=== PATIENT | female | born 1930 | race Two or more races ===

== ENCOUNTER 2017-08-13 02:52 | Inpatient (IN) | payer MEDICARE, OTHER ==
[~2017-08-13] VITALS: Ht 152.4 cm; Wt 64.4 kg
[2017-08-13] VITALS (34 sets, daily range): BP systolic 114–155; BP diastolic 43–96
--- NOTE | 2017-08-13 03:00 | NUR ---
pt has 18g midline RUE
--- NOTE | 2017-08-13 03:00 | NUR ---
PT BIB RA 90 WITH A C/O FEVER. PT IS TRACH VENTED WITH THE FOLLOWING SETTINGS: AC 12, TV 325, QBM901%, PEEP 5. PT IS NON RESPONSIVE TO PAINFUL STIMULI, PT'S BASELINE PER EMS. PT IS ON THE MONITOR AND CONTINUOUS PULSE OX. PT'S DAUGHTER IS IN THE LOBBY. PT HAS RUE PICC LINE, CONTEH TO GRAVITY, GTUBE, WOUND ON COCCYX AND RT HIP FX THAT HAS NOT BEEN CORRECTED. PT HAS LLE DEFORMITY FROM CHILDHOOD.
[2017-08-13] MEDS ORDERED: ACETAMINOPHEN 650 MG/SUPP.RECT RC ONE ×2 (03:27→03:30)
[2017-08-13] MEDS ORDERED: IV NS 0.9% 1,000 ML BAG IV ONE (03:30)
[2017-08-13 03:39] LABS: APPEARANCE,URINE CLOUDY (CLEAR); BILIRUBIN,URINE NEGATIVE (NEGATIVE); BLOOD, URINE 3+ Ery/uL (NEGATIVE); COLOR,URINE YELLOW (YELLOW); KETONES,URINE NEGATIVE (NEGATIVE); LEUKOCYTE ESTERASE ,URINE 3+ (NEGATIVE); NITRITE, URINE POSITIVE (NEGATIVE); PH,URINE 5.5 (5.0-8.0); PROTEIN,URINE 1+ mg/dl (NEGATIVE); UGLUCOSE NEGATIVE (NEGATIVE); UROBILINOGEN,URINE 0.2 EU/dL (0.2)
[2017-08-13 03:42] LABS: BASOPHILS # (AUTO) 0.1 /CMM (0.0-0.2); BASOPHILS % (AUTO) 0.4 % (0.0-2.0); EOSINOPHILS # (AUTO) 0.4 /CMM (0.0-0.7); EOSINOPHILS % (AUTO) 2.7 % (0.0-6.0); HEMATOCRIT 21 % (33-45); LYMPHOCYTES # (AUTO) 2.4 /CMM (0.8-4.8); LYMPHOCYTES % (AUTO) 17.4 % (20.0-44.0); MEAN CORPUSCULAR HEMOGLOBIN 31 PG (26.0-33.0); MEAN CORPUSCULAR HGB CONC 33 g/dl (31.0-36.0); MEAN CORPUSCULAR VOLUME 95 fL (82-100); MONOCYTES # (AUTO) 0.9 /CMM (0.1-1.30); MONOCYTES % (AUTO) 6.8 % (2.0-12.0); NEUTROPHILS % (AUTO) 72.7 % (43.0-81.0); PLATELET COUNT (AUTO) 394 /CMM (150-450); RDW COEFFICIENT OF VARIATION 24.7 (11.5-15.0); RED BLOOD CELL COUNT(AUTO) 2.16 MIL/uL (4.0-5.2); WHITE BLOOD COUNT (AUTO) 13.8 K/uL (4.3-11.0)
[2017-08-13 03:47] LABS: HEMOGLOBIN 6.7 g/dL (11.5-14.8)
[2017-08-13 03:49] LABS: BACTERIA,URINE Few /HPF (None Seen); WBC,URINE TOO NUMEROUS TO COUN /HPF (0-3)
[2017-08-13 03:50] LABS: SQUAMOUS EPITHELIAL CELL,UR Few /HPF (None Seen)
[2017-08-13 03:54] LABS: CALCIUM, SERUM 7.2 mg/dL (8.5-10.1); CARBON DIOXIDE 24 mmol/L (21-32); CHLORIDE 118 mmol/L (98-107); CREATININE 0.9 mg/dL (0.6-1.3); GLUCOSE 107 mg/dL (74-106); INR 1.22 (0.87-1.13); POTASSIUM 4.6 mmol/L (3.5-5.1); PROTHROMBIN TIME 12.7 SECS (9.5-12.7); SODIUM SERUM 147 mmol/L (136-145); UREA NITROGEN, BLOOD 43 mg/dL (7-18)
[2017-08-13 04:00] LABS: TROPONIN I 0.032 ng/mL (0.00-0.056)
[2017-08-13] MEDS ORDERED: CEFTRIAXONE 1GM BAG (ER ONLY) 1 GM/50 ML PIGGYBACK IV ONE (04:00)
[2017-08-13] MEDS ORDERED: IOHEXOL-350 100 ML VIAL IV ONE (04:06)
[2017-08-13] MEDS ORDERED: IV NS 0.9% 250 ML IV ONE (04:06)
[2017-08-13 04:10] LABS: ALANINE AMINOTRANSFERASE 27 U/L (12-78); ALKALINE PHOSPHATASE 265 U/L (46-116); ASPARTATE AMINOTRANSFERASE 54 U/L (15-37); B-TYPE NATRIURETIC PEPTIDE 6226 PG/ML (0-125); BILIRUBIN,DIRECT 0.2 mg/dL (0.0-0.2); BILIRUBIN,TOTAL 0.5 mg/dL (0.2-1.0); TOTAL PROTEIN, SERUM 5.6 g/dL (6.4-8.2)
[2017-08-13 04:11] LABS: ALBUMIN 1.2 g/dL (3.4-5.0)
[2017-08-13] MEDS ORDERED: CEFTRIAXONE 1GM BAG (ER ONLY) 50 ML IV ONE (04:12)
[2017-08-13 04:14] LABS: BAND % (MANUAL) 4 % (0.0-5.0); EOSINOPHILS % (MANUAL) 3 % (0-4); LYMPHOCYTES % (MANUAL) 20 % (16-48); MONOCYTES % (MANUAL) 9 % (0-11.0); NEUTROPHILS % (MANUAL) 64 (42-76)
--- NOTE | 2017-08-13 04:20 | NUR ---
US IS AT THE BEDSIDE.
--- NOTE | 2017-08-13 04:30 | NUR ---
Bernard beckman in [facility] - 08/13/17 at 0504 by TABITHA US FINISHED
--- NOTE | 2017-08-13 04:50 | NUR ---
US FINISHED AT THE BEDSIDE.
--- NOTE | 2017-08-13 05:02 | NUR ---
PT APPEARS TO BE RESTING COMRORTABLY. PT'S DAUGHTER IS AT THE BEDSIDE. PT IS AWAITING CT.
--- NOTE | 2017-08-13 05:15 | NUR ---
pt left for CT via gurney with RT, automotive technician instructor and myself.
--- NOTE | 2017-08-13 05:17 | NUR ---
ICU BED 257
--- NOTE | 2017-08-13 05:25 | NUR ---
PT RETURNED FROM CTA.
--- NOTE | 2017-08-13 05:45 | NUR ---
REPORT GIVEN TO LAMIN MARION -ICU.
[2017-08-13] MEDS ORDERED: NYST5ORA TP (05:53)
[2017-08-13] MEDS ORDERED: DOXY100C41 GT (05:53)
[2017-08-13] MEDS ORDERED: ZINC25CA GT (05:53)
[2017-08-13] MEDS ORDERED: MULT1TAB73 GT (05:53)
[2017-08-13] MEDS ORDERED: ONDA4TAB5 GT (05:53)
[2017-08-13] MEDS ORDERED: ALBU2.5V13 IH ×2 (05:53)
[2017-08-13] MEDS ORDERED: IPRA0.2S49 IH ×2 (05:53)
[2017-08-13] MEDS ORDERED: FERR324T11 GT (05:53)
[2017-08-13] MEDS ORDERED: ERGO500040 GT (05:53)
[2017-08-13] MEDS ORDERED: FAMO20TA80 GT (05:53)
[2017-08-13] MEDS ORDERED: LACT1CAP57 GT (05:53)
[2017-08-13] MEDS ORDERED: PROT946L GT (05:53)
[2017-08-13] MEDS ORDERED: BALS60OI TP (05:53)
[2017-08-13] MEDS ORDERED: ACET325T53 GT (05:53)
[2017-08-13] MEDS ORDERED: DOCU100C36 GT (05:53)
[2017-08-13] MEDS ORDERED: ASCORBIC ACID GT (05:53)
--- NOTE | 2017-08-13 06:20 | NUR ---
CALLED RADIOLOGY RE: CTA READ.
[2017-08-13] MEDS ORDERED: MAG HYDROX/AL HYDROX/SIMETH 30 ML UDC GT PRN (06:30)
[2017-08-13] MEDS ORDERED: ONDANSETRON HCL/PF 4 MG/2 ML VIAL IVP PRN ×2 (06:30→07:00)
[2017-08-13] MEDS ORDERED: Z GUARD REMEDY 2 OZ OINT TP PRN ×2 (06:30→07:00)
[2017-08-13] MEDS ORDERED: ZOLPIDEM TARTRATE 5 MG TABLET GT PRN (06:30)
[2017-08-13] MEDS ORDERED: MAGNESIUM HYDROXIDE 30 ML UDC PO PRN (06:30)
[2017-08-13] MEDS ORDERED: ACETAMINOPHEN 325 MG TABLET PO PRN (07:00)
--- NOTE | 2017-08-13 07:07 | NUR ---
CTA RESULTED AND IS NEGATIVE. PT GOING TO ICU. RT CALLED.
--- NOTE | 2017-08-13 07:20 | NUR ---
LOGISTIC MANAGER- INITIAL ADMISSION NOTED RECEIVED PT FROM ER VIA GURNEY. PT OBTUNDED, NON-VERBAL. ON MECHANICAL VENT, RESPIRATIONS EVEN AND UNLABORED, NO SOB OR DISTRESS PRESENT. BEDSIDE MONITOR REVEALS SINUS TACHYCARDIA. CONTEH CATHETER DRAINING TO GRAVITY CLOUDY, YELLOW URINE. CONTEH CATHETER REMOVED AND NEW CATHETER INSERTED. MACARIO MIDLINE FLUSHED, PATENT AND INTACT. G-TUBE PRESENT AND NOTED TO BE LEAKING AROUND STOMA SITE. G-TUBE KEPT CLAMPED AT THIS TIME. SAFETY MEASURES TAKEN: BED LOCKED AND IN LOW POSITION, SIDE RAILS UP X2 AND BED ALARM ON, WILL CONTINUE TO MONITOR.
[2017-08-13] MEDS: IV NS 0.9% 1,000 ML IV PRN (08:14)
[2017-08-13] MEDS ORDERED: ACETAMINOPHEN 650 MG/20.3 ML UDC GT PRN (08:30)
--- NOTE | 2017-08-13 08:47 | NUR ---
RT PATIENT REC'D TRACHED ON [facility] VENT DAVID WELL. VENT ALARMS CHECKED + AUDIBLE. SX'D WITH MOD AMT OF PALE YELLOW SEMITHICK SECRETIONS. B/S BAR. BERT BAG AT HOB Addendum: 08/13/17 at 1248 by CAMERON JOHNSTON RT Amended: Links added.
[2017-08-13] MEDS: FAMOTIDINE (20 MG) 20 MG TABLET GT SCH ×2 (09:00→17:18)
[2017-08-13] MEDS: LACTOBACILLUS RHAMNOSUS GG 1 EACH CAP.SPRINK GT SCH ×2 (09:00→17:18)
--- NOTE | 2017-08-13 09:00 | NUR ---
SERVICE LINE COORDINATOR- MEDICATIONS NON-ADMINISTERED DUE TO LEAKING OF G-TUBE STOMA SITE. WILL INFORM Beny ORTIZ DNP WHEN MEDICAL FRONT DESK COORDINATOR SEEING PT. WILL CONTINUE TO MONITOR.
[2017-08-13] MEDS: FERROUS SULFATE (325 MG) 325 MG/TAB TABLET GT SCH (09:56)
[2017-08-13] MEDS: MULTIVITAMINS,THERAGRAN 1 UDTAB TABLET GT SCH (09:57)
[2017-08-13] MEDS ORDERED: HYDROGEL DRESSING 90 GM TUBE TP PRN (10:00)
[2017-08-13] MEDS: ASCORBIC ACID 500 MG TABLET GT SCH ×2 (10:01→17:18)
--- NOTE | 2017-08-13 10:01 | NUR ---
WOUND CARE CONSULT: PT PRESENTS WITH MULTIPLE WOUNDS INCLUDING RT BUTTOCK STAGE 4 ULCER, LEFT BUTTOCK AND SACRAL STAGE 3 ULCERS AND G TUBE SITE REDNESS, ALL PRESENT ON ADMISSION. PT IS TRACH-VENT DEPENDENT AND IMMOBILE. FIRST STEP MATTRESS IN USE. ALL SKIN PROTECTION AND WOUND RECOMMENDATIONS DISCUSSED WITH NURSING STAFF. RECOMMEND SURGICAL CONSULT. WILL SEE PRN. PERDUE IN AGREEMENT WITH PLAN OF CARE.
[2017-08-13] MEDS: ZINC SULFATE 220 MG CAPSULE GT SCH (10:02)
[2017-08-13] MEDS: ERGOCALCIFEROL (VITAMIN D 2) 50,000 UNIT CAPSULE GT SCH (10:46)
[2017-08-13] MEDS ORDERED: IPRATROPIUM NEB FS 0.5 MG/2.5 ML AMPUL.NEB IH SCH (12:00)
[2017-08-13] MEDS: HYDROGEL DRESSING 90 GM TUBE TP SCH (12:09)
[2017-08-13] MEDS: PROSOURCE / PROSTAT (PYXIS) 30 ML UDC GT SCH ×2 (13:00→17:18)
--- NOTE | 2017-08-13 13:20 | NUR ---
BIODIESEL DIVISION MANAGER- Comfort STAPLES AGENT TICKETING GATE AT BEDSIDE. UPDATED HER ON PT'S G-TUBE: LEAKING, RED & SWOLLEN. PER AGENT TICKETING GATE, OBTAIN CONSENT FOR EGD AND POSSIBLE PEG TUBE REPLACEMENT. 1330- OBTAINED TELEPHONE CONSENT FROM PT'S DAUGHTER, MOHAN FOR EGD AND POSSIBLE PEG TUBE REPLACEMENT. VERIFIED WITH NIRALI KIMBLE. 1430- 1ST UNIT OF BLOOD COMPLETED. DR. YOUNG AND OR STAFF AT BEDSIDE FOR EGD. WILL START 2ND UNIT OF BLOOD ONCE EGD COMPLETED.
[2017-08-13] MEDS: IPRATROPIUM NEB FS 0.5 MG/2.5 ML AMPUL.NEB IH SCH ×2 (13:29→19:30)
[2017-08-13] MEDS: ALBUTEROL FS 2.5 MG/0.5 ML VIAL.NEB NEB SCH ×2 (13:29→19:30)
--- NOTE | 2017-08-13 14:15 | NUR ---
CIGAR BINDERKENTON ORTIZ DNP AT BEDSIDE INSERTING NEW MIDLINE. WILL CONTINUE TO MONITOR.
[2017-08-13] MEDS ORDERED: NEOMY SULF/BACITRAC ZN/POLY 15 GM TUBE TP PRN (16:00)
--- NOTE | 2017-08-13 16:30 | NUR ---
TRACK SURFACING MACHINE OPERATOR- STOOL SAMPLE OBTAINED FOR STOOL OB AND PLACED IN FRIDGE FOR LAB CHIROPRACTOR SOLE PRACTITIONER. WILL CONTINUE TO MONITOR.
[2017-08-13] MEDS: MEROPENEM 500 MG in IV NS 0.9% 50 ML IV SCH (18:43)
--- NOTE | 2017-08-13 20:18 | NUR ---
PT RECEIVED TRACHED SHLY 6 ON VENT. NO RESP DISTRESS. PT TOLERATING VENT SETTINGS. SX'D FOR MOD AMT OF TINGED SECRETIONS. VENT ALARMS SET AND AUDIBLE. AMBU BAG AT BEDSIDE. VENT PLUGGED INTO RED OUTLET. WILL CONTINUE TO MONITOR. Addendum: 08/13/17 at 2020 by CRISTOBAL VALLADARES RT Amended: Links added.
--- NOTE | 2017-08-13 20:32 | NUR ---
RN NOTE RECEIVED REPORT FROM LISA ORDER TAKER FOR CONTINUITY OF CARE
[2017-08-13 21:14] LABS: HEMOGLOBIN 11.2 g/dL (11.5-14.8)
[2017-08-14] VITALS: BP 146/86
[2017-08-14] MEDS: ALBUTEROL FS 2.5 MG/0.5 ML VIAL.NEB NEB SCH ×4 (01:30→20:09)
[2017-08-14] MEDS: IPRATROPIUM NEB FS 0.5 MG/2.5 ML AMPUL.NEB IH SCH ×4 (01:30→20:09)
[2017-08-14 04:00] VITALS: BP 151/86
[2017-08-14] MEDS ORDERED: CEFTRIAXONE 1 G in IV D5W 50 ML IV SCH (05:00)
[2017-08-14] MEDS: MEROPENEM 500 MG in IV NS 0.9% 50 ML IV SCH ×2 (05:22→17:31)
--- NOTE | 2017-08-14 07:04 | NUR ---
RN NOTE PT REMAINS IN NO ACUTE DISTRESS IN BED. PT DID NOT HAVE ANY SIGNIFICANT CHANGE IN CONDITION DURING SHIFT. ALL NEEDS MET, ALL ORDERS CARRIED OUT. WILL ENDORSE CARE TO AM RN FOR CONTINUITY OF CARE.
[2017-08-14 07:10] LABS: BASOPHILS # (AUTO) 0.1 /CMM (0.0-0.2); BASOPHILS % (AUTO) 0.7 % (0.0-2.0); EOSINOPHILS # (AUTO) 0.3 /CMM (0.0-0.7); EOSINOPHILS % (AUTO) 2.1 % (0.0-6.0); HEMATOCRIT 34 % (33-45); HEMOGLOBIN 11.7 g/dL (11.5-14.8); LYMPHOCYTES # (AUTO) 1.6 /CMM (0.8-4.8); LYMPHOCYTES % (AUTO) 11.9 % (20.0-44.0); MEAN CORPUSCULAR HEMOGLOBIN 31 PG (26.0-33.0); MEAN CORPUSCULAR HGB CONC 34 g/dl (31.0-36.0); MEAN CORPUSCULAR VOLUME 90 fL (82-100); MONOCYTES # (AUTO) 0.8 /CMM (0.1-1.30); MONOCYTES % (AUTO) 5.6 % (2.0-12.0); NEUTROPHILS # (AUTO) 10.9 /CMM (1.8-8.9); NEUTROPHILS % (AUTO) 79.7 % (43.0-81.0); PLATELET COUNT (AUTO) 391 /CMM (150-450); RDW COEFFICIENT OF VARIATION 21.6 (11.5-15.0); RED BLOOD CELL COUNT(AUTO) 3.79 MIL/uL (4.0-5.2); WHITE BLOOD COUNT (AUTO) 13.6 K/uL (4.3-11.0)
[2017-08-14 07:25] LABS: CHOLESTEROL 112 mg/dL (<200); HDL CHOLESTEROL 10 mg/dL (40-60); LDL 69 mg/dL (0-99); TRIGLYCERIDES 111 mg/dL (30-150)
[2017-08-14 07:27] LABS: CARBON DIOXIDE 19 mmol/L (21-32); CHLORIDE 118 mmol/L (98-107); CREATININE 0.8 mg/dL (0.6-1.3); GLUCOSE 79 mg/dL (74-106); MAGNESIUM 1.5 mg/dL (1.8-2.4); PHOSPHORUS 3.3 mg/dL (2.5-4.9); POTASSIUM 4.2 mmol/L (3.5-5.1); SODIUM SERUM 147 mmol/L (136-145); UREA NITROGEN, BLOOD 39 mg/dL (7-18)
[2017-08-14 08:00] VITALS: BP_SYST 152; BP_SYST 153; BP_DIAS 51; BP_DIAS 92
[2017-08-14] MEDS: ZINC SULFATE 220 MG CAPSULE GT SCH (09:34)
[2017-08-14] MEDS: LACTOBACILLUS RHAMNOSUS GG 1 EACH CAP.SPRINK GT SCH ×2 (09:34→17:35)
[2017-08-14] MEDS: PROSOURCE / PROSTAT (PYXIS) 30 ML UDC GT SCH ×3 (09:34→17:35)
[2017-08-14] MEDS: HYDROCODONE/APAP 5/325MG 1 EACH TABLET GT PRN (09:35)
[2017-08-14] MEDS: FERROUS SULFATE (325 MG) 325 MG/TAB TABLET GT SCH (09:35)
[2017-08-14] MEDS: ASCORBIC ACID 500 MG TABLET GT SCH ×2 (09:35→17:35)
[2017-08-14] MEDS: HYDROGEL DRESSING 90 GM TUBE TP SCH (09:36)
[2017-08-14] MEDS: FAMOTIDINE (20 MG) 20 MG TABLET GT SCH ×2 (09:36→17:35)
[2017-08-14] MEDS: MULTIVITAMINS,THERAGRAN 1 UDTAB TABLET GT SCH (09:36)
[2017-08-14] MEDS: Magnesium 1GM/D5W 100ML PREMIX 100 ML IV SCH ×2 (11:27→13:45)
[2017-08-14 12:00] VITALS: BP 142/82
[2017-08-14 16:00] VITALS: BP 135/91
[2017-08-14] MEDS: IV NS 0.9% 1,000 ML IV PRN (17:37)
[2017-08-14] MEDS: NUTREN PULMONARY 1,000 ML BAG GT PRN (18:17)
--- NOTE | 2017-08-14 18:30 | NUR ---
RN NOTE TUBE FEEDING STARTED TODAY VIA NGT TUBE PER DIETITIAN RECOMMENDATION. WILL ENDORSE TO QA AUTOMATION DEVELOPER NURSE.
--- NOTE | 2017-08-14 19:30 | NUR ---
TELEVISION ANTENNA INSTALLER INITIAL NOTES RECEIVED PATIENT ASLEEP, OBTUNDED, RESPONSIVE TO TOUCH. NO S/S OF PAIN OR DISCOMFORT. VENT DEPENDENT, WITH VENT SETTINGS AC 12, TV 450, FIO2 35%, PEEP 5, SPO2 100%. NO RESPIRATORY DISTRESS NOTED. ON TELE MONITOR SR. WITH LEFT NARE NGT, PATENT, INTACT, IN PLACE. GTF AT 20ML/HR, NOTED WITH 20ML RESIDUAL, WILL TITRATE TO GOAL RATE OF 40ML/HR TOLERATED. NOTED WITH GENERALIZED EDEMA. IVF RUNNING. HOB KEPT ELEVATED. SIDE RAILS UP AND LOCKED. BED KEPT AT LOWEST POSITION. WILL CONTINUE TO MONITOR.
[2017-08-14 20:00] VITALS: BP 137/89
--- NOTE | 2017-08-14 20:10 | NUR ---
Received pt on vent support AC 12,450,35,+5, pt stable on current settings no distress noted at this time, WILL CONTINUE MONITORING PT PER MDS ORDERS. Addendum: 08/14/17 at 2011 by ARIELA CHAVEZ RT Amended: Links added.
[2017-08-15] VITALS: BP 137/89
[2017-08-15] MEDS: ALBUTEROL FS 2.5 MG/0.5 ML VIAL.NEB NEB SCH ×4 (01:42→20:10)
[2017-08-15] MEDS: IPRATROPIUM NEB FS 0.5 MG/2.5 ML AMPUL.NEB IH SCH ×4 (01:42→20:10)
[2017-08-15 04:00] VITALS: BP 140/76
[2017-08-15] MEDS: IV NS 0.9% 1,000 ML IV PRN ×2 (05:21→23:48)
[2017-08-15] MEDS: MEROPENEM 500 MG in IV NS 0.9% 50 ML IV SCH ×2 (05:21→17:21)
--- NOTE | 2017-08-15 06:00 | NUR ---
TUFTING CREELER CLOSING NOTES NO SIGNIFICANT CHANGES OVERNIGHT. TOLERATING GTF AT 40ML/HR. NO RESPIRATORY DISTRESS NOTED. TOLERATING CURRENT VENT SETTINGS, SPO2 100%. SKIN COOL AND DRY TO TOUCH. PATIENT WITH NS AT 100ML/HR, RECEIVED NEW ORDER TO DECREASED TO 50ML/HR. SR ON TELE MONITOR. F/C IN PLACE, DRAINING BY GRAVITY. KEPT CLEAN AND DRY. WOUND TX ORDERED. TURNED AND REPOSITIONED Q2 AND PRN. SIDE RAILS UP AND LOCKED. BED KEPT AT LOWEST POSITION. WILL ENDORSE CONTINUITY OF CARE TO AM NURSE.
[2017-08-15 08:00] VITALS: BP 116/76
[2017-08-15] MEDS: MULTIVITAMINS,THERAGRAN 1 UDTAB TABLET GT SCH (09:09)
[2017-08-15] MEDS: ZINC SULFATE 220 MG CAPSULE GT SCH (09:09)
[2017-08-15] MEDS: FERROUS SULFATE (325 MG) 325 MG/TAB TABLET GT SCH (09:09)
[2017-08-15] MEDS: ASCORBIC ACID 500 MG TABLET GT SCH ×2 (09:09→17:21)
[2017-08-15] MEDS: PROSOURCE / PROSTAT (PYXIS) 30 ML UDC GT SCH ×3 (09:09→17:21)
[2017-08-15] MEDS: LACTOBACILLUS RHAMNOSUS GG 1 EACH CAP.SPRINK GT SCH ×2 (09:09→17:20)
[2017-08-15] MEDS: FAMOTIDINE (20 MG) 20 MG TABLET GT SCH ×2 (09:09→17:21)
[2017-08-15] MEDS: HYDROGEL DRESSING 90 GM TUBE TP SCH (09:09)
[2017-08-15 12:00] VITALS: BP 149/73
[2017-08-15 16:00] VITALS: BP 114/35
[2017-08-15 20:00] VITALS: BP_SYST 149; BP_DIAS 43; BP_DIAS 53
--- NOTE | 2017-08-15 20:00 | NUR ---
RN NOTES RECEIVED PATIENT IN BED WITH EYES CLOSED. NO DISTRESS NOTED. BREATHING EVEN AND UNLABORED. VENT SETTING WELL TOLERATED. NON VERBAL. NO PHYSICAL MANIFESTATION OF PAIN OR DISCOMFORT. FC PATENT AND INTACT DRAINING CLEAR YELLOW WITH NO DOUL ORDOR URINE. FEEDING WELL TOLERATED VIA NGT TO LEFT NARE. NO RESIDUAL NOTED. VITAL SIGNS WNL. KEPT CLEAN AND DRY. WILL CONTINUE TO MONITOR.
--- NOTE | 2017-08-15 20:10 | NUR ---
PT REC'D ON [facility] VENT ON NOTED SETTINGS CHARTED. PT IS COMFORTABLE AND NO RESPIRATORY DISTRESS NOTED. VENT PLUGGED INTO RED OUTLET, AMBU BAG BEDSIDE, ALARMS ARE SET AND AUDIBLE PER POLICY. WILL CONTINUE TO MONITOR. Addendum: 08/16/17 at 0538 by KENNEDI OLIVER RT Amended: Links added.
[2017-08-15] MEDS: CEFTAZIDIME 2 G in IV D5W 50 ML IV SCH (20:56)
[2017-08-16] VITALS (8 sets, daily range): BP systolic 123–158; BP diastolic 46–106
[2017-08-16] MEDS: ALBUTEROL FS 2.5 MG/0.5 ML VIAL.NEB NEB SCH ×4 (01:57→20:12)
[2017-08-16] MEDS: IPRATROPIUM NEB FS 0.5 MG/2.5 ML AMPUL.NEB IH SCH ×4 (01:57→20:12)
[2017-08-16] MEDS: CEFTAZIDIME 2 G in IV D5W 50 ML IV SCH ×3 (04:41→20:55)
--- NOTE | 2017-08-16 06:20 | NUR ---
RN CLOSING NOTES NO SIGNIFICANT CHANGE OF CONDITION. NO DISTRESS NOTED. BREATHING EVEN AND UNLABORED. VITAL SIGNS WNL. OBTUNDED, NON VERBAL. WILL ENDORSE TO AM SHIFT FOR CONTINUITY OF CARE.
--- NOTE | 2017-08-16 07:41 | NUR ---
ANA MARIA RN OPENING NOTES RECEIVED PATIENT IN STABLE CONDITION. IN NO APPARENT DISTRESS. PATIENT IS RESTING IN BED. BEDSIDE RAILS ARE UP X2. BED IS LOCKED AND LOWERED. WILL CONTINUE TO MONITOR.
[2017-08-16] MEDS: PROSOURCE / PROSTAT (PYXIS) 30 ML UDC GT SCH ×3 (08:03→16:04)
[2017-08-16] MEDS: ASCORBIC ACID 500 MG TABLET GT SCH ×2 (08:04→16:04)
[2017-08-16] MEDS: LACTOBACILLUS RHAMNOSUS GG 1 EACH CAP.SPRINK GT SCH ×2 (08:04→16:04)
[2017-08-16] MEDS: MULTIVITAMINS,THERAGRAN 1 UDTAB TABLET GT SCH (08:04)
[2017-08-16] MEDS: HYDROGEL DRESSING 90 GM TUBE TP SCH (08:04)
[2017-08-16] MEDS: FAMOTIDINE (20 MG) 20 MG TABLET GT SCH ×2 (08:04→16:04)
[2017-08-16] MEDS: FERROUS SULFATE (325 MG) 325 MG/TAB TABLET GT SCH (08:04)
[2017-08-16] MEDS: ZINC SULFATE 220 MG CAPSULE GT SCH (08:04)
[2017-08-16] MEDS: NUTREN PULMONARY 1,000 ML BAG GT PRN (08:17)
[2017-08-16 08:44] LABS: BASOPHILS % (AUTO) 0.3 % (0.0-2.0); EOSINOPHILS # (AUTO) 0.5 /CMM (0.0-0.7); EOSINOPHILS % (AUTO) 4.8 % (0.0-6.0); HEMATOCRIT 32 % (33-45); HEMOGLOBIN 10.9 g/dL (11.5-14.8); LYMPHOCYTES % (AUTO) 17.3 % (20.0-44.0); MEAN CORPUSCULAR HEMOGLOBIN 31 PG (26.0-33.0); MEAN CORPUSCULAR HGB CONC 34 g/dl (31.0-36.0); MEAN CORPUSCULAR VOLUME 90 fL (82-100); MONOCYTES # (AUTO) 1.1 /CMM (0.1-1.30); MONOCYTES % (AUTO) 9.9 % (2.0-12.0); NEUTROPHILS # (AUTO) 7.8 /CMM (1.8-8.9); NEUTROPHILS % (AUTO) 67.7 % (43.0-81.0); PLATELET COUNT (AUTO) 467 /CMM (150-450); RDW COEFFICIENT OF VARIATION 21.1 (11.5-15.0); RED BLOOD CELL COUNT(AUTO) 3.54 MIL/uL (4.0-5.2); WHITE BLOOD COUNT (AUTO) 11.4 K/uL (4.3-11.0)
[2017-08-16 09:08] LABS: CALCIUM, SERUM 7.3 mg/dL (8.5-10.1); CARBON DIOXIDE 18 mmol/L (21-32); CHLORIDE 119 mmol/L (98-107); CREATININE 0.8 mg/dL (0.6-1.3); GLUCOSE 93 mg/dL (74-106); MAGNESIUM 1.8 mg/dL (1.8-2.4); PHOSPHORUS 3.3 mg/dL (2.5-4.9); POTASSIUM 3.9 mmol/L (3.5-5.1); SODIUM SERUM 147 mmol/L (136-145); UREA NITROGEN, BLOOD 45 mg/dL (7-18)
--- NOTE | 2017-08-16 17:23 | NUR ---
Trach pt received, tolerating current vent settings well throughout the shift. Pt trach is secure. Vent is plugged into a red outlet, alarms are set and audible, and BVM is at bedside. Addendum: 08/16/17 at 1728 by CADEN ZUÑIGA RT Amended: Links added.
--- NOTE | 2017-08-16 18:39 | NUR ---
CENTRIFUGAL SEPARATOR CLOSING NOTES PATIENT IS RESTING IN BED IN NO APPARENT DISTRESS. BEDSIDE RAILS ARE UP X2. BED IS LOCKED AND LOWERED. CALL LIGHT IS WITHIN REACH. WILL ENDORSE CARE TO TRAFFIC LINE PAINTER NURSE FOR NICK.
[2017-08-16] MEDS: IV NS 0.9% 1,000 ML IV PRN (20:56)
[2017-08-17] VITALS (8 sets, daily range): BP systolic 102–180; BP diastolic 50–92
[2017-08-17] MEDS: ALBUTEROL FS 2.5 MG/0.5 ML VIAL.NEB NEB SCH ×4 (02:14→20:22)
[2017-08-17] MEDS: IPRATROPIUM NEB FS 0.5 MG/2.5 ML AMPUL.NEB IH SCH ×4 (02:14→20:22)
[2017-08-17] MEDS: CEFTAZIDIME 2 G in IV D5W 50 ML IV SCH ×3 (04:48→21:39)
--- NOTE | 2017-08-17 05:58 | NUR ---
RT PT RECEIVED ON [facility] VENT WITH NOTED SETTING. VENT PLUGGED IN TO RED OUTLET. ALARMS SET AND AUDIBLE. AMBU BAG AT [facility]. NO SOB OR RESP DISTRESS NOTED ON SHIFT. HHN TX GIVEN ORDERED WITH NO ADVERSE REACTIONS. Addendum: 08/17/17 at 0558 by SALENA BYRD RT Amended: Links added.
[2017-08-17 06:31] LABS: BASOPHILS # (AUTO) 0.1 /CMM (0.0-0.2); BASOPHILS % (AUTO) 0.7 % (0.0-2.0); EOSINOPHILS # (AUTO) 0.7 /CMM (0.0-0.7); EOSINOPHILS % (AUTO) 5.5 % (0.0-6.0); HEMATOCRIT 32 % (33-45); LYMPHOCYTES # (AUTO) 1.9 /CMM (0.8-4.8); LYMPHOCYTES % (AUTO) 15.9 % (20.0-44.0); MEAN CORPUSCULAR HEMOGLOBIN 31 PG (26.0-33.0); MEAN CORPUSCULAR HGB CONC 34 g/dl (31.0-36.0); MEAN CORPUSCULAR VOLUME 91 fL (82-100); MONOCYTES % (AUTO) 7.8 % (2.0-12.0); NEUTROPHILS # (AUTO) 8.5 /CMM (1.8-8.9); NEUTROPHILS % (AUTO) 70.1 % (43.0-81.0); PLATELET COUNT (AUTO) 481 /CMM (150-450); RDW COEFFICIENT OF VARIATION 21.6 (11.5-15.0); RED BLOOD CELL COUNT(AUTO) 3.55 MIL/uL (4.0-5.2); WHITE BLOOD COUNT (AUTO) 12.2 K/uL (4.3-11.0)
[2017-08-17 07:01] LABS: CALCIUM, SERUM 7.3 mg/dL (8.5-10.1); CARBON DIOXIDE 18 mmol/L (21-32); CHLORIDE 123 mmol/L (98-107); CREATININE 0.7 mg/dL (0.6-1.3); GLUCOSE 103 mg/dL (74-106); MAGNESIUM 1.8 mg/dL (1.8-2.4); PHOSPHORUS 3.6 mg/dL (2.5-4.9); POTASSIUM 4.2 mmol/L (3.5-5.1); SODIUM SERUM 152 mmol/L (136-145); UREA NITROGEN, BLOOD 50 mg/dL (7-18)
[2017-08-17] MEDS: FERROUS SULFATE (325 MG) 325 MG/TAB TABLET GT SCH (09:08)
[2017-08-17] MEDS: ZINC SULFATE 220 MG CAPSULE GT SCH (09:08)
[2017-08-17] MEDS: MULTIVITAMINS,THERAGRAN 1 UDTAB TABLET GT SCH (09:08)
[2017-08-17] MEDS: FAMOTIDINE (20 MG) 20 MG TABLET GT SCH ×2 (09:09→16:28)
[2017-08-17] MEDS: ASCORBIC ACID 500 MG TABLET GT SCH ×2 (09:09→16:28)
[2017-08-17] MEDS: HYDROGEL DRESSING 90 GM TUBE TP SCH (09:09)
[2017-08-17] MEDS: PROSOURCE / PROSTAT (PYXIS) 30 ML UDC GT SCH ×3 (09:09→16:28)
[2017-08-17] MEDS: LACTOBACILLUS RHAMNOSUS GG 1 EACH CAP.SPRINK GT SCH ×2 (09:09→16:28)
--- NOTE | 2017-08-17 12:26 | NUR ---
APPLIED COMPUTER SCIENCE PROFESSOR NOTE SPOKE WITH GUCCI JAUREGUI DNP AWARE THAT NA 152 WITH NEW ORDER IVF GIVEN
[2017-08-17] MEDS: NUTREN PULMONARY 1,000 ML BAG GT PRN (12:31)
[2017-08-17] MEDS: IV 1/2NS 1000 ML 1,000 ML IV PRN (13:39)
--- NOTE | 2017-08-17 13:41 | NUR ---
HEALTH ASSOCIATE NOTE PER GUCCI JAUREGUI OK TO GIVE IVF AT 80 ML PER HOUR, AWARE THAT BOTH HANDS WITH SEVERE EDEMA STATED OK TO CONT TO GIVE, WILL F]U
--- NOTE | 2017-08-17 15:50 | NUR ---
SENIOR SALES REPRESENTATIVE NOTE KEEP CLEAN DRY FAMILY AT BEDSIDE, NOT IN ACUTE DISTRESS, WILL CONT TO MONITOR CLOSELY
--- NOTE | 2017-08-17 17:17 | NUR ---
Pt received on mechanical vent, tolerating current vent settings well. Pt trach is secure. Vent is plugged into a red outlet, alarms are set and audible, and BVM is at bedside. Addendum: 08/17/17 at 1718 by CADEN ZUÑIGA RT Amended: Links added.
--- NOTE | 2017-08-17 17:21 | NUR ---
FOOD MOBILE DRIVER NOTE SPOKE WITH GUCCI JAUREGUI RN ELEVATOR CONSTRUCTOR SUPERVISOR NOTIFIED THAT BP 180/90 WITH ORDER HYDRALAZINE 25 NG VIA GTUBE TIME ONE ,ORDER CARRIED OUT
[2017-08-17] MEDS ORDERED: hydrALAZINE HCL 25 MG TABLET GT ONE (17:30)
--- NOTE | 2017-08-17 18:36 | NUR ---
ANIMAL NUTRITION CONSULTANT NOTE ALL NEEDS ATTENDED, NOT IN ACUTE DISTRESS
--- NOTE | 2017-08-17 20:00 | NUR ---
RN INITIAL NOTES Pt received on mechanical vent, tolerating current vent settings well. Pt trach is secure. Vent is plugged into a red outlet, alarms are set and audible, and BVM is at bedside.Will continue to monitor pt.
[2017-08-18] VITALS (7 sets, daily range): BP systolic 123–177; BP diastolic 40–82
[2017-08-18] MEDS: IPRATROPIUM NEB FS 0.5 MG/2.5 ML AMPUL.NEB IH SCH ×4 (02:17→19:06)
[2017-08-18] MEDS: ALBUTEROL FS 2.5 MG/0.5 ML VIAL.NEB NEB SCH ×4 (02:17→19:06)
[2017-08-18] MEDS: IV 1/2NS 1000 ML 1,000 ML IV PRN ×2 (04:19→19:54)
[2017-08-18] MEDS: CEFTAZIDIME 2 G in IV D5W 50 ML IV SCH ×3 (04:22→19:48)
--- NOTE | 2017-08-18 05:30 | NUR ---
RT PT RECEIVED ON [facility] VENT WITH NOTED SETTING. VENT PLUGGED IN TO RED OUTLET. ALARMS SET AND AUDIBLE. AMBU BAG AT [facility]. NO SOB OR RESP DISTRESS NOTED ON SHIFT. HHN TX GIVEN ORDERED WITH NO ADVERSE REACTIONS. Addendum: 08/18/17 at 0530 by SALENA BYRD RT Amended: Links added.
[2017-08-18 06:11] LABS: BASOPHILS # (AUTO) 0.1 /CMM (0.0-0.2); EOSINOPHILS # (AUTO) 0.6 /CMM (0.0-0.7); EOSINOPHILS % (AUTO) 4.8 % (0.0-6.0); HEMATOCRIT 32 % (33-45); HEMOGLOBIN 10.7 g/dL (11.5-14.8); LYMPHOCYTES # (AUTO) 1.6 /CMM (0.8-4.8); LYMPHOCYTES % (AUTO) 12.2 % (20.0-44.0); MEAN CORPUSCULAR HEMOGLOBIN 30 PG (26.0-33.0); MEAN CORPUSCULAR HGB CONC 34 g/dl (31.0-36.0); MEAN CORPUSCULAR VOLUME 90 fL (82-100); MONOCYTES # (AUTO) 1.1 /CMM (0.1-1.30); MONOCYTES % (AUTO) 8.1 % (2.0-12.0); NEUTROPHILS # (AUTO) 9.9 /CMM (1.8-8.9); NEUTROPHILS % (AUTO) 73.9 % (43.0-81.0); PLATELET COUNT (AUTO) 480 /CMM (150-450); RED BLOOD CELL COUNT(AUTO) 3.53 MIL/uL (4.0-5.2); WHITE BLOOD COUNT (AUTO) 13.3 K/uL (4.3-11.0)
--- NOTE | 2017-08-18 06:42 | NUR ---
RN CLOSING NOTES NO CHANGES IN PT CONDITION OVER NIGHT. Pt received on mechanical vent, tolerating current vent settings well. Pt trach is secure. Vent is plugged into a red outlet, alarms are set and audible, and BVM is at bedside.Will endorse to Am RN.
[2017-08-18 07:08] LABS: CALCIUM, SERUM 7.1 mg/dL (8.5-10.1); CARBON DIOXIDE 18 mmol/L (21-32); CHLORIDE 118 mmol/L (98-107); CREATININE 0.7 mg/dL (0.6-1.3); GLUCOSE 83 mg/dL (74-106); MAGNESIUM 1.6 mg/dL (1.8-2.4); PHOSPHORUS 3.2 mg/dL (2.5-4.9); POTASSIUM 3.6 mmol/L (3.5-5.1); SODIUM SERUM 145 mmol/L (136-145); UREA NITROGEN, BLOOD 44 mg/dL (7-18)
--- NOTE | 2017-08-18 07:30 | NUR ---
RN AM NOTES RECEIVED PATIENT IN STABLE CONDITION. OBTUNDED, ON SHILEY 6 MECHANICAL VENT DEPENDENT SETTING ORDERED. NOT IN ANY DISTRESS. IN NO APPARENT DISTRESS. TELEMETRY READS SR HR 86, NO SIGNS OF CHEST DISCOMFORT OR PAIN, LENARD MIDLINE FLUSHES WELL, SITE CLEAR, MACARIO MIDLINE WITH 1/2 NS AT 80 ML/HR RUNNING, SITE CLEAR, CONTEH CATH IS IN PLACE, DRAINING ADEQUATE AMOUNT OF URINE, YELLOW CLEAR, GENERALIZED SWELLING, CONTRACTED, BEDREST, NGT CHECKED FOR PLACEMENT WITH COLLEAGUE CRISTOBAL KIMBLE, NUTREN 40 ML/HR, 10 ML RESIDUAL, SEE NURSING FLOWSHEET FOR SKIN ISSUES. BEDSIDE RAILS ARE UP X2. BED IS LOCKED AND LOWERED. WILL TURN AND REPOSITION Q 2 HOURS. WILL CONTINUE TO MONITOR.
--- NOTE | 2017-08-18 09:30 | NUR ---
RN NOTES DUE MEDS GIVEN
[2017-08-18] MEDS: MULTIVITAMINS,THERAGRAN 1 UDTAB TABLET GT SCH (09:53)
[2017-08-18] MEDS: FERROUS SULFATE (325 MG) 325 MG/TAB TABLET GT SCH (09:53)
[2017-08-18] MEDS: LACTOBACILLUS RHAMNOSUS GG 1 EACH CAP.SPRINK GT SCH ×2 (09:53→17:15)
[2017-08-18] MEDS: ZINC SULFATE 220 MG CAPSULE GT SCH (09:53)
[2017-08-18] MEDS: FAMOTIDINE (20 MG) 20 MG TABLET GT SCH ×2 (09:53→17:15)
[2017-08-18] MEDS: ASCORBIC ACID 500 MG TABLET GT SCH ×2 (09:53→17:15)
[2017-08-18] MEDS: HYDROGEL DRESSING 90 GM TUBE TP SCH (09:54)
[2017-08-18] MEDS: PROSOURCE / PROSTAT (PYXIS) 30 ML UDC GT SCH ×3 (09:54→17:15)
--- NOTE | 2017-08-18 12:20 | NUR ---
RN NOTES FORTAZ IV STARTED.
[2017-08-18] MEDS: Magnesium 1GM/D5W 100ML PREMIX 100 ML IV SCH ×2 (12:57→14:02)
--- NOTE | 2017-08-18 12:57 | NUR ---
RN NOTES MAGNESIUM BAG #1 ADMINISTERED.
--- NOTE | 2017-08-18 14:02 | NUR ---
RN NOTES MAGNESIUM BAG # 2 STARTED. FINAL DOSE. REPORT GIVEN TO CYNDY FOR NICK.
--- NOTE | 2017-08-18 14:05 | NUR ---
RN OPENING NOTES RECEIVED PT. PT IS STABLE AND RESTING, PT IS OBTUNDED. PT IS ON TELE MONITOR, SR. PT IS TRACHED WITH SHILEY #6 AND VENT DEPENDENT, SETTINGS IN PLACE. FC IN PLACE AND PATENT. IV ACCESS LOCATED ON LENARD (SL) AND MACARIO (0.45 NS AT 80 ML/HR) BOTH MIDLINES. NGT SET TO FEED AT 40 ML/HR. SAFETY MEASURES IN PLACE, BED LOWERED TO LOWEST POSITION, HAND RAILS RAISE X3. WILL CONTINUE TO MONITOR.
--- NOTE | 2017-08-18 17:19 | NUR ---
Female trach pt received on AC mode. Pt trach is secure. Vent is plugged into a red outlet, alarms are set and audible, and BVM is at bedside. Addendum: 08/18/17 at 1726 by CADEN ZUÑIGA RT Amended: Links added.
--- NOTE | 2017-08-18 18:34 | NUR ---
RN CLOSING NOTES PT IS STABLE AND RESTING IN BED. NO S/S OF RESP DISTRESS OR SOB. PT DOES NOT APPEAR TO BE IN PAIN. VENT SETTINGS IN PLACE. PER MD ORDER, PT IS NPO, TUBE FEEDING STOPPED AT 1750. ALL PT NEEDS ANTICIPATED AND MET. SAFETY MEASURES IN PLACE, CALL LIGHT WITHIN REACH. WILL ENDORSE TO PROPERTY FIELD ADJUSTER FOR NICK.
--- NOTE | 2017-08-18 20:00 | NUR ---
RT INITIAL NOTE: [facility] WITH NOTED SETTING. SANITARY ENGINEER DONE. VENT PLUGGED INTO RED OUTLET. ALARMS SET AND AUDIBLE. AMBU BAG AT HOB. NO SOB OR RESP DISTRESS NOTED. WILL CONT TO MONITOR PT.
--- NOTE | 2017-08-18 20:12 | NUR ---
RT NOTE: PT RECEIVED ON MECH VENT WITH NOTED SETTING. SALES AND SERVICE AGENT DONE. VENT PLUGGED INTO RED OUTLET. ALARMS SET AND AUDIBLE. AMBU BAG AT HOB. NO SOB OR RESP DISTRESS NOTED ON SHIFT. PRN SX GIVEN NEEDED. Q6 HHN TX GIVEN ORDERED WITH NO ADVERSE REACTIONS. WILL CONT TO MONITOR PT.
[2017-08-19] VITALS (9 sets, daily range): BP systolic 115–150; BP diastolic 40–78
[2017-08-19] MEDS: IPRATROPIUM NEB FS 0.5 MG/2.5 ML AMPUL.NEB IH SCH ×4 (00:58→19:49)
[2017-08-19] MEDS: ALBUTEROL FS 2.5 MG/0.5 ML VIAL.NEB NEB SCH ×4 (00:58→19:49)
[2017-08-19] MEDS: CEFTAZIDIME 2 G in IV D5W 50 ML IV SCH ×3 (04:52→20:53)
--- NOTE | 2017-08-19 06:35 | NUR ---
RT CLOSING NOTE: NO CHANGE IN PT CONDITION OVERNIGHT. PT RECEIVED ON [facility] VENT WITH NOTED SETTING. EVAPORATOR SUPERVISOR DONE. VENT PLUGGED INTO RED OUTLET. ALARMS SET AND AUDIBLE. AMBU BAG AT HOB. NO SOB OR RESP DISTRESS NOTED. WILL CONT TO MONITOR PT.PT KEPT NPO SINCE MIDNIGHT. ALL MEDIATION GIVEN AND NEEDS ATTENDED.WILL ENDORSE TO AM RN.
--- NOTE | 2017-08-19 07:50 | NUR ---
RN OPENING NOTES RECEIVED PT. PT STABLE AND RESTING IN BED. PT IS OBTUNDED. NO S/S OF RESPIRATORY DISTRESS. PT IS TRACHED AND VENT DEPENDENT, SETTINGS IN PLACE. FC PATENT AND IN PLACE. IV ACCESS LOCATED ON LENARD (MIDLINE) AND MACARIO (MIDLINE). MACARIO LINE IS INFUSING 0.45 NS AT 80 ML/HR. PT IS ON NPO SINCE MIDNIGHT. POSSIBLE PEG PLACEMENT TO OCCUR TODAY D5W AT 75 ML/HR. SAFETY MEASURES IN PLACE, BED LOWERED TO LOWEST POSITION, SIDE RAILS RAISED X2. WILL CONTINUE TO MONITOR. Addendum: 08/19/17 at 1318 by CRISTELA MORENO PLEASE DISREGARD TYPING MISTAKE. NURSING NOTE SHOULD READ FOLLOWS: POSSIBLE PEG PLACEMENT TO OCCUR TODAY 08/19/17. SAFETY MEASURES IN PLACE, BED LOWERED TO LOWEST POSITION, SIDE RAILS RAISED X2. WILL CONTINUE TO MONITOR.
[2017-08-19] MEDS: ZINC SULFATE 220 MG CAPSULE GT SCH (08:31)
[2017-08-19] MEDS: HYDROGEL DRESSING 90 GM TUBE TP SCH (08:31)
[2017-08-19] MEDS: FAMOTIDINE (20 MG) 20 MG TABLET GT SCH ×2 (08:31→16:37)
[2017-08-19] MEDS: MULTIVITAMINS,THERAGRAN 1 UDTAB TABLET GT SCH (08:31)
[2017-08-19] MEDS: LACTOBACILLUS RHAMNOSUS GG 1 EACH CAP.SPRINK GT SCH ×2 (08:31→16:37)
[2017-08-19] MEDS: ASCORBIC ACID 500 MG TABLET GT SCH ×2 (08:31→16:37)
[2017-08-19] MEDS: FERROUS SULFATE (325 MG) 325 MG/TAB TABLET GT SCH (08:31)
[2017-08-19] MEDS: PROSOURCE / PROSTAT (PYXIS) 30 ML UDC GT SCH ×3 (08:31→16:38)
[2017-08-19 09:02] LABS: CALCIUM, SERUM 7.3 mg/dL (8.5-10.1); CARBON DIOXIDE 18 mmol/L (21-32); CHLORIDE 116 mmol/L (98-107); CREATININE 0.7 mg/dL (0.6-1.3); GLUCOSE 88 mg/dL (74-106); POTASSIUM 3.8 mmol/L (3.5-5.1); SODIUM SERUM 144 mmol/L (136-145); UREA NITROGEN, BLOOD 43 mg/dL (7-18)
[2017-08-19] MEDS: NUTREN PULMONARY 1,000 ML BAG GT PRN (16:55)
--- NOTE | 2017-08-19 17:41 | NUR ---
RECEIVED PT ON AC MODE ALARMS ON AND AUDIBLE, VENT PLUGGED INTO RED OUTLET, AMBUBAG AT BEDSIDE, SXD, MODERATE AMOUNT OF THICK PALE YELLOW SECRETIONS, TXS GIVEN ORDERED NO ADVERSE REACTION NOTED, PT STABLE ON CURRENT VENT SETTINGS, Addendum: 08/19/17 at 1746 by CHUCK CALLEJAS RT Amended: Links added.
--- NOTE | 2017-08-19 18:34 | NUR ---
RN CLOSING NOTES PT IN BED RESTING. NO S/S OF SOB. PT DOES NOT APPEAR TO BE IN ANY PAIN AT THIS TIME. FAMILY REQUESTS TO SPEAK WITH SURGICAL MD, DR. YOUNG, PRIOR TO SIGNING EGD WITH PEG PLACEMENT CONSENT FORM. NPO CANCELLED, PER MD ORDER TUBE FEEDING RESUMED. ALL PT NEEDS ANTICIPATED AND MET. SAFETY MEASURES IN PLACE, CALL LIGHT WITHIN REACH. WILL ENDORSE TO SHIPPING ORDER CLERK FOR NICK.
--- NOTE | 2017-08-19 20:00 | NUR ---
RN INITIAL NOTES PT IN BED RESTING. NO S/S OF SOB. PT DOES NOT APPEAR TO BE IN ANY PAIN AT THIS TIME. TUBE FEEDING, ALL SAFETY MEASURES IN PLACE, CALL LIGHT WITHIN REACH. WILL CONTINUE TO MONITOR PT.
[2017-08-19] MEDS: IV 1/2NS 1000 ML 1,000 ML IV PRN (21:01)
[2017-08-20] VITALS (8 sets, daily range): BP systolic 119–200; BP diastolic 17–92
[2017-08-20] MEDS: IPRATROPIUM NEB FS 0.5 MG/2.5 ML AMPUL.NEB IH SCH ×4 (01:58→19:50)
[2017-08-20] MEDS: ALBUTEROL FS 2.5 MG/0.5 ML VIAL.NEB NEB SCH ×4 (01:58→19:50)
[2017-08-20] MEDS: NUTREN PULMONARY 1,000 ML BAG GT PRN (04:53)
[2017-08-20] MEDS: CEFTAZIDIME 2 G in IV D5W 50 ML IV SCH ×3 (04:55→20:39)
--- NOTE | 2017-08-20 07:08 | NUR ---
RN CLOSING NOTES PT IN BED RESTING. NO S/S OF SOB. PT DOES NOT APPEAR TO BE IN ANY PAIN AT THIS TIME. TUBE FEEDING @40,IV FLUIDS @80, ALL SAFETY MEASURES IN PLACE, CALL LIGHT WITHIN REACH. WILL ENDORSE TO AM RN.
[2017-08-20] MEDS: LACTOBACILLUS RHAMNOSUS GG 1 EACH CAP.SPRINK GT SCH ×2 (09:53→17:15)
[2017-08-20] MEDS: FAMOTIDINE (20 MG) 20 MG TABLET GT SCH ×2 (09:53→17:16)
[2017-08-20] MEDS: ASCORBIC ACID 500 MG TABLET GT SCH ×2 (09:53→17:15)
[2017-08-20] MEDS: FERROUS SULFATE (325 MG) 325 MG/TAB TABLET GT SCH (09:53)
[2017-08-20] MEDS: MULTIVITAMINS,THERAGRAN 1 UDTAB TABLET GT SCH (09:53)
[2017-08-20] MEDS: ZINC SULFATE 220 MG CAPSULE GT SCH (09:53)
[2017-08-20] MEDS: PROSOURCE / PROSTAT (PYXIS) 30 ML UDC GT SCH ×3 (09:55→17:16)
[2017-08-20] MEDS: ERGOCALCIFEROL (VITAMIN D 2) 50,000 UNIT CAPSULE GT SCH (10:46)
[2017-08-20] MEDS: IV 1/2NS 1000 ML 1,000 ML IV PRN (12:37)
[2017-08-20] MEDS: HYDROGEL DRESSING 90 GM TUBE TP SCH (17:12)
--- NOTE | 2017-08-20 17:30 | NUR ---
RECEIVED PT ON ac MODE ON LTV VENT, PLUGGED INTO RED OUTLET, ABMUBAG AT BEDSIDE, TRACH PATENT AND SECURE, TXS GIVEN ORDERED NO ADVERSE REACTION NOTED PT STABLE. Addendum: 08/20/17 at 1732 by CHUCK CALLEJAS RT Amended: Links added.
--- NOTE | 2017-08-20 18:00 | NUR ---
Nurse Notes: Patient is suppose to have tomorrow EGD, with possible biopsy, cauterization,photography, and cytology. Percutaneous Endoscopic Gastrostomy Tube Insertion. Daughter Elke was called at [phone]. daughter does not want to [id number] for the GT placement, until she speaks to her family. Nurse Practicioner Rogelio Pabon was called, she needs to call back. to hold procedure of EGD and GT placement.
--- NOTE | 2017-08-20 19:05 | NUR ---
MILL CRANE OPERATOR OPENING NOTES RECEIVED REPORT FROM AM RN. PATIENT OBTUNDED. TRACH INTACT W/ VENT SETTINGS AC 12, TV 450, FIO2 35%, PEEP 5, TOLERATING WELL. ON TELE SINUS RHYTHM IN THE 90S. RIGHT UPPER ARM MIDLINE INTACT & PATENT W/ DRESSING CDI & IVF 1/2 NS @ 80 ML/HR. LEFT UPPER ARM MIDLINE INTACT & PATENT W/ DRESSING CDI, SLAINE LOCKED. NG-TUBE IN LEFT NOSTRIL INTACT W/ NGTF NUTREN @ 40 ML/HR. NO RESIDUAL NOTED @ THIS TIME. CONTEH CATH DRAINING YELLOW URINE, NO LEAKING NOTED. NO S/S OF PAIN OR DISCOMFORT @ THIS TIME. SAFETY MEASURES IN PLACE W/ SIDE RAILS UP, BED LOCKED & IN LOWEST POSITION & BED ALARM ON. WILL CONTINUE TO MONITOR.
[2017-08-21] VITALS (7 sets, daily range): BP systolic 119–177; BP diastolic 30–57
[2017-08-21] MEDS: ALBUTEROL FS 2.5 MG/0.5 ML VIAL.NEB NEB SCH ×4 (01:28→19:48)
[2017-08-21] MEDS: IPRATROPIUM NEB FS 0.5 MG/2.5 ML AMPUL.NEB IH SCH ×4 (01:28→19:48)
[2017-08-21] MEDS: HYDROCODONE/APAP 5/325MG 1 EACH TABLET GT PRN ×2 (04:16→09:19)
[2017-08-21] MEDS: CEFTAZIDIME 2 G in IV D5W 50 ML IV SCH ×2 (04:16→16:18)
--- NOTE | 2017-08-21 05:43 | NUR ---
RT pt remains on [facility] vent on ordered settings. trach secure and patent. Addendum: 08/21/17 at 0545 by MAR JIMENEZ RT Amended: Links added.
--- NOTE | 2017-08-21 07:10 | NUR ---
RN INITIAL NOTE PATIENT RECEIVED IN BED RESTING COMFORTABLY. PATIENT IS OBTUNDED, NON-VERBAL. NO S/S OF PAIN OR DISCOMFORT. SINUS RHYTHM ON TELE MONITOR. PT HAS HAILY TINSLEY #6 . NO S/S OF RESPIRATORY DISTRESS OR SOB. TOLERATING VENT SETTINGS WELL. SKIN IS WARM AND DRY TO TOUCH. IV SITE FLUSHED, AND PATENT. CONTEH CATHETER DRAINING TO GRAVITY. NGT FLUSHED, PATENT, PLACEMENT VERIFED. SAFETY PRECAUTIONS IMPLEMENTED. BED IN LOCKED, LOW POSITION WITH TWO SIDE RAILS UP. WILL CONTINUE TO MONITOR CLOSELY
[2017-08-21] MEDS: LACTOBACILLUS RHAMNOSUS GG 1 EACH CAP.SPRINK GT SCH ×2 (09:19→16:25)
[2017-08-21] MEDS: ZINC SULFATE 220 MG CAPSULE GT SCH (09:19)
[2017-08-21] MEDS: MULTIVITAMINS,THERAGRAN 1 UDTAB TABLET GT SCH (09:19)
[2017-08-21] MEDS: FERROUS SULFATE (325 MG) 325 MG/TAB TABLET GT SCH (09:19)
[2017-08-21] MEDS: ASCORBIC ACID 500 MG TABLET GT SCH ×2 (09:19→16:25)
[2017-08-21] MEDS: FAMOTIDINE (20 MG) 20 MG TABLET GT SCH ×2 (09:19→16:25)
[2017-08-21] MEDS: PROSOURCE / PROSTAT (PYXIS) 30 ML UDC GT SCH ×3 (09:20→16:25)
[2017-08-21] MEDS: HYDROGEL DRESSING 90 GM TUBE TP SCH (09:20)
--- NOTE | 2017-08-21 16:17 | NUR ---
RT RECEIVED PT ON LTV VENT, PLUGGED INTO RED OUTLET, AMBUBAG AT BEDSIDE, TRACH PATENT AND SECURED, TXS GIVEN ORDERED NO ADVERSE REACTION NOTED, PT STABLE AT THIS TIME Addendum: 08/21/17 at 1619 by CHUCK CALELJAS RT Amended: Links added.
--- NOTE | 2017-08-21 19:30 | NUR ---
BRASS MOLDER HELPER INITIAL NOTE PT RECEIVED RESTING IN BED. OBTUNDED. ON MECH VENT WITH SETTINGS WELL TOLERATED AND SATURATING WELL. TELE-SR 88. NGTUBE IN L NARE IN PLACE AND PATENT WITH FEEDING INFUSING. NO RESIDUALS NOTED. HOB ELEVATED. ON ASPIRATION PRECAUTIONS. IV MACARIO & LENARD MIDLINE IN PLACE, CLEAN, INTACT AND FLUSHING WELL. CONTEH CATHETER IN PLACE AND DRAINING BY GRAVITY. CALL LIGHT WITHIN REACH. WILL CONTINUE TO MONITOR.
[2017-08-22] VITALS: BP 133/56
[2017-08-22] MEDS: ALBUTEROL FS 2.5 MG/0.5 ML VIAL.NEB NEB SCH ×4 (00:45→20:12)
[2017-08-22] MEDS: IPRATROPIUM NEB FS 0.5 MG/2.5 ML AMPUL.NEB IH SCH ×4 (00:45→20:12)
[2017-08-22] MEDS: IV 1/2NS 1000 ML 1,000 ML IV PRN ×2 (02:59→20:35)
[2017-08-22] MEDS: NUTREN PULMONARY 1,000 ML BAG GT PRN (03:00)
[2017-08-22] MEDS: CEFTAZIDIME 2 G in IV D5W 50 ML IV SCH ×2 (03:07→16:15)
[2017-08-22 04:00] VITALS: BP 148/57
--- NOTE | 2017-08-22 04:55 | NUR ---
RT Pt trach remains on vent on ordered settings. Addendum: 08/22/17 at 0456 by MAR JIMENEZ RT Amended: Links added.
--- NOTE | 2017-08-22 07:42 | NUR ---
DECORATOR CONSULTANT CLOSING NOTE PT REMAINED STABLE DURING SHIFT. NO ACUTE DISTRESS NOTED. VENT SETTINGS WLL TOLERATED. HOB ELEVATED. ON ASPIRATION PRECAUTIONS. SUCTIONED NEEDED. REPOSITIONED Q2H. NGTUBE IN PLACE AND FEEDING WELL TOLERATED. IV IN PLACE. ALL SAFETY MEASURES IN PLACE. WILL ENDORSE TO NEXT SHIFT FOR CONTINUITY OF CARE.
[2017-08-22 08:00] VITALS: BP 123/57
[2017-08-22] MEDS: LACTOBACILLUS RHAMNOSUS GG 1 EACH CAP.SPRINK GT SCH ×2 (09:50→16:15)
[2017-08-22] MEDS: ZINC SULFATE 220 MG CAPSULE GT SCH (09:50)
[2017-08-22] MEDS: ASCORBIC ACID 500 MG TABLET GT SCH ×2 (09:50→16:15)
[2017-08-22] MEDS: PROSOURCE / PROSTAT (PYXIS) 30 ML UDC GT SCH ×3 (09:50→16:16)
[2017-08-22] MEDS: FAMOTIDINE (20 MG) 20 MG TABLET GT SCH ×2 (09:50→16:15)
[2017-08-22] MEDS: MULTIVITAMINS,THERAGRAN 1 UDTAB TABLET GT SCH (09:51)
[2017-08-22] MEDS: FERROUS SULFATE (325 MG) 325 MG/TAB TABLET GT SCH (09:51)
[2017-08-22] MEDS: HYDROGEL DRESSING 90 GM TUBE TP SCH (09:52)
[2017-08-22 12:00] VITALS: BP 148/59
--- NOTE | 2017-08-22 17:51 | NUR ---
RT RECEIVED PT ON AC MODE ON LTV VENT, PLUGGED INTO RED OUTLET, AMBUBAG AT BEDSIDE, TRACH PATENT AND SECURE NO SOB NOTED THROUGHOUT SHIFT, TXS GIVEN ORDERED NO ADVERSE REACTION NOTED PT STABLE AT THIS TIME Addendum: 08/22/17 at 1752 by CHUCK CALLEJAS RT Amended: Links added.
--- NOTE | 2017-08-22 19:30 | NUR ---
NEONATAL NURSE PRACTITIONER INITIAL NOTE PT ON MECH VENT WITH SETTINGS WELL TOLERATED AND SATURATING WELL. OBTUNDED WITH DAUGHTER AT BEDSIDE. HOB ELEVATED AND ON ASPIRATION PRECAUTIONS. NG TUBE PRESENT IN THE LEFT NARE AND SECURED IN PLACE. TUBE FEEDING INFUSING WITHOUT RESIDUALS NOTED. TELE SR 80. IV MACARIO MIDLINE AND LENARD MIDLINE CLEAN, DRY AND PATENT. CONTEH CATHETER IN PLACE AND DRAINING BY GRAVITY. INFORMED DAUGHTER OF DEBRIDEMENT PROCEDURE ORDERED BY DR. XIAO. DAUGHTER REFUSED TO SIGN AND SAID SHE WANTED MORE INFORMATION FROM DOCTOR. SAID SHE WOULD BE IN THE HOSPITAL IN THE MORNING. WILL CONTINUE TO MONITOR.
[2017-08-22 20:00] VITALS: BP 122/56
[2017-08-23] VITALS: BP_SYST 129; BP_SYST 142; BP_DIAS 41; BP_DIAS 65
[2017-08-23] MEDS: IPRATROPIUM NEB FS 0.5 MG/2.5 ML AMPUL.NEB IH SCH ×4 (01:35→19:30)
[2017-08-23] MEDS: ALBUTEROL FS 2.5 MG/0.5 ML VIAL.NEB NEB SCH ×4 (01:35→19:30)
[2017-08-23 04:00] VITALS: BP 129/45
[2017-08-23] MEDS: NUTREN PULMONARY 1,000 ML BAG GT PRN (04:55)
[2017-08-23 08:00] VITALS: BP 138/70
--- NOTE | 2017-08-23 08:00 | NUR ---
NAVY SENIOR OFFICER CLOSING PT REMAINED STABLE DURING SHIFT. NO ACUTE DISTRESS. ALL NEEDS ATTENDED TO PROMPTLY. KEPT CLEAN AND DRY. WILL ENDORSE TO NEXT SHIFT FOR CONTINUITY OF CARE.
[2017-08-23] MEDS: ZINC SULFATE 220 MG CAPSULE GT SCH (08:24)
[2017-08-23] MEDS: FERROUS SULFATE (325 MG) 325 MG/TAB TABLET GT SCH (08:24)
[2017-08-23] MEDS: LACTOBACILLUS RHAMNOSUS GG 1 EACH CAP.SPRINK GT SCH ×2 (08:24→17:31)
[2017-08-23] MEDS: FAMOTIDINE (20 MG) 20 MG TABLET GT SCH ×2 (08:24→17:31)
[2017-08-23] MEDS: ASCORBIC ACID 500 MG TABLET GT SCH ×2 (08:24→17:31)
[2017-08-23] MEDS: HYDROGEL DRESSING 90 GM TUBE TP SCH (08:25)
[2017-08-23] MEDS: MULTIVITAMINS,THERAGRAN 1 UDTAB TABLET GT SCH (08:27)
[2017-08-23] MEDS: PROSOURCE / PROSTAT (PYXIS) 30 ML UDC GT SCH ×3 (08:27→17:32)
[2017-08-23] MEDS: IV 1/2NS 1000 ML 1,000 ML IV PRN (10:24)
[2017-08-23 12:00] VITALS: BP 117/79
--- NOTE | 2017-08-23 13:17 | NUR ---
RT PATIENT RECEIVED ON MECHANICAL VENTILATION IN STABLE CONDITION. SUCTION DONE, TRACH SECURED AND PATENT. BLOODY-TINGED SECRETIONS NOTED. ALARMS ON AND AUDIBLE. Addendum: 08/23/17 at 1318 by CHIDI JERNIGAN RT Amended: Links added.
[2017-08-23 16:00] VITALS: BP 106/60
--- NOTE | 2017-08-23 17:54 | NUR ---
RN NOTE SPOKE TO DR. JUAREZ REGARDING IV FLUIDS ORDERED TO DC 1/2 NS @ 80 ML/HR.
[2017-08-23 20:00] VITALS: BP 135/47
--- NOTE | 2017-08-23 20:00 | NUR ---
RN INITIAL NOTE PATIENT RECEIVED IN BED RESTING COMFORTABLY. PATIENT IS OBTUNDED, NON-VERBAL. NO S/S OF PAIN OR DISCOMFORT. SINUS RHYTHM ON TELE MONITOR. PT HAS HAILY TINSLEY #6 . NO S/S OF RESPIRATORY DISTRESS OR SOB. TOLERATING VENT SETTINGS WELL. SKIN IS WARM AND DRY TO TOUCH. IV SITE FLUSHED, AND PATENT. CONTEH CATHETER DRAINING TO GRAVITY. NGT FLUSHED, PATENT, PLACEMENT VERIFIED. SAFETY PRECAUTIONS IMPLEMENTED. BED IN LOCKED, LOW POSITION WITH TWO SIDE RAILS UP. WILL CONTINUE TO MONITOR CLOSELY
[2017-08-24] VITALS: BP 142/41
[2017-08-24] MEDS: IPRATROPIUM NEB FS 0.5 MG/2.5 ML AMPUL.NEB IH SCH ×4 (01:59→19:51)
[2017-08-24] MEDS: ALBUTEROL FS 2.5 MG/0.5 ML VIAL.NEB NEB SCH ×4 (01:59→19:51)
[2017-08-24 04:00] VITALS: BP 111/58
[2017-08-24] MEDS: NUTREN PULMONARY 1,000 ML BAG GT PRN (04:32)
[2017-08-24 06:56] LABS: BASOPHILS # (AUTO) 0.1 /CMM (0.0-0.2); BASOPHILS % (AUTO) 0.3 % (0.0-2.0); EOSINOPHILS # (AUTO) 0.5 /CMM (0.0-0.7); EOSINOPHILS % (AUTO) 2.8 % (0.0-6.0); HEMATOCRIT 29 % (33-45); HEMOGLOBIN 9.8 g/dL (11.5-14.8); LYMPHOCYTES # (AUTO) 1.6 /CMM (0.8-4.8); LYMPHOCYTES % (AUTO) 9.6 % (20.0-44.0); MEAN CORPUSCULAR HEMOGLOBIN 32 PG (26.0-33.0); MEAN CORPUSCULAR HGB CONC 34 g/dl (31.0-36.0); MEAN CORPUSCULAR VOLUME 93 fL (82-100); MONOCYTES # (AUTO) 1.7 /CMM (0.1-1.30); MONOCYTES % (AUTO) 10.3 % (2.0-12.0); NEUTROPHILS # (AUTO) 12.7 /CMM (1.8-8.9); PLATELET COUNT (AUTO) 374 /CMM (150-450); RDW COEFFICIENT OF VARIATION 22.3 (11.5-15.0); WHITE BLOOD COUNT (AUTO) 16.5 K/uL (4.3-11.0)
--- NOTE | 2017-08-24 07:40 | NUR ---
RN NOTES RECEIVED PT FROM SEAL EXTRUSION OPERATOR IN STABLE CONDITION. PT OBTUNDED TOLERATING VENT SETTINGS AT THIS TIME. SR ON THE TELE MONITOR HR 98. CONTEH DRAINING TO GRAVITY, YELLOW IN COLOR. NGT IN PLACE WITH FEEDING AT 40ML/HR. MACARIO AND LENARD MIDLINE INTACT, NO IVF. BED LOCKED AND IN LOWEST POSITION, CALL LIGHT WITHIN REACH, SIDE RAILS UPX3, WILL CONT TO ALIN.
[2017-08-24 07:47] LABS: CALCIUM, SERUM 7.2 mg/dL (8.5-10.1); CARBON DIOXIDE 17 mmol/L (21-32); CHLORIDE 109 mmol/L (98-107); CREATININE 0.8 mg/dL (0.6-1.3); GLUCOSE 108 mg/dL (74-106); POTASSIUM 3.8 mmol/L (3.5-5.1); SODIUM SERUM 138 mmol/L (136-145); UREA NITROGEN, BLOOD 48 mg/dL (7-18)
--- NOTE | 2017-08-24 07:55 | NUR ---
PATIENT RECEIVED ON MECHANICAL VENTILATION. SP02 @ 100%, HR 89. SUCTION DONE, TRACH SECURED AND PATENT. ALARMS ON AND AUDIBLE. CONTINUOUS PULSE OX @ BEDSIDE, ON AND WORKING. WILL MONITOR T/O SHIFT. Addendum: 08/24/17 at 0759 by CHIDI JERNIGAN RT Amended: Links added.
[2017-08-24 08:00] VITALS: BP 140/25
[2017-08-24] MEDS: MULTIVITAMINS,THERAGRAN 1 UDTAB TABLET GT SCH (08:28)
[2017-08-24] MEDS: LACTOBACILLUS RHAMNOSUS GG 1 EACH CAP.SPRINK GT SCH ×2 (08:28→16:13)
[2017-08-24] MEDS: PROSOURCE / PROSTAT (PYXIS) 30 ML UDC GT SCH ×3 (08:28→16:13)
[2017-08-24] MEDS: ZINC SULFATE 220 MG CAPSULE GT SCH (08:28)
[2017-08-24] MEDS: FAMOTIDINE (20 MG) 20 MG TABLET GT SCH ×2 (08:28→16:13)
[2017-08-24] MEDS: ASCORBIC ACID 500 MG TABLET GT SCH ×2 (08:28→16:13)
[2017-08-24] MEDS: FERROUS SULFATE (325 MG) 325 MG/TAB TABLET GT SCH (08:29)
[2017-08-24] MEDS: HYDROGEL DRESSING 90 GM TUBE TP SCH (08:29)
[2017-08-24 12:00] VITALS: BP 119/42
[2017-08-24] MEDS ORDERED: IV NS 0.9% 1,000 ML IV PRN (12:30)
--- NOTE | 2017-08-24 14:00 | NUR ---
RN NOTES CONSENT OBTAINED FOR GTUBE PLACEMENT FROM DAUGHTER. DAUGHTER DOES NOT WANT WOUND DEBRIDEMENT.
[2017-08-24 14:05] LABS: NEUTROPHILS % (MANUAL) 78 (42-76)
[2017-08-24 14:06] LABS: EOSINOPHILS % (MANUAL) 2 % (0-4); LYMPHOCYTES % (MANUAL) 5 % (16-48); MONOCYTES % (MANUAL) 15 % (0-11.0)
[2017-08-24] MEDS: HYDROCODONE/APAP 5/325MG 1 EACH TABLET GT PRN (14:22)
[2017-08-24 16:00] VITALS: BP 137/51
--- NOTE | 2017-08-24 18:51 | NUR ---
RN NOTES PT REMAINED IN STABLE CONDITION THROUGHOUT THE SHIFT, NO SIGNIFICANT CHANGES NOTED, ALL NEEDS MET. WILL ENDORSE TO ONCOMING SHIFT.
[2017-08-24 20:00] VITALS: BP 127/57
[2017-08-25] VITALS: BP 134/31
[2017-08-25] MEDS: IPRATROPIUM NEB FS 0.5 MG/2.5 ML AMPUL.NEB IH SCH ×4 (00:50→19:46)
[2017-08-25] MEDS: ALBUTEROL FS 2.5 MG/0.5 ML VIAL.NEB NEB SCH ×4 (00:50→19:47)
[2017-08-25 04:00] VITALS: BP 118/34
--- NOTE | 2017-08-25 06:41 | NUR ---
RN CLOSING NOTE PATIENT RESTING IN BED RESTING COMFORTABLY. PT KEPT NPO, PATIENT IS OBTUNDED, NON-VERBAL. NO S/S OF PAIN OR DISCOMFORT. SINUS RHYTHM ON TELE MONITOR. PT HAS HAILY TINSLEY #6 . NO S/S OF RESPIRATORY DISTRESS OR SOB. TOLERATING VENT SETTINGS WELL. SKIN IS WARM AND DRY TO TOUCH. IV SITE FLUSHED, AND PATENT. CONTEH CATHETER DRAINING TO GRAVITY. NGT FLUSHED, PATENT, PLACEMENT VERIFIED. SAFETY PRECAUTIONS IMPLEMENTED. BED IN LOCKED, LOW POSITION WITH TWO SIDE RAILS UP. WILL INDORSE TO AM RN
--- NOTE | 2017-08-25 07:30 | NUR ---
RN NOTES RECEIVED PATIENT IN BED ON [facility] VENT WITH BREATHING NORMAL, EVEN AND UNLABORED. NO SOB NOTED. NO ACUTE DISTRESS NOTED. VENT SETTING REVIEWED AND VERIFIED. TOLERATED WELL.TELE MONITOR REVEALS SR, HR=80. LENARD MIDLINE IS PATENT AND INTACT, RUNNING IVF PER ORDER. NGT CLAMPED. F/C IS PATENT AND INTACT,DRAINING WITH GRAVITY. KEPT CLEAN, DRY AND COMFORTABLE. ALL NEEDS ATTENDED. SAFETY MEASURE OBSERVED. CALL LIGHT WITH IN REACH. WILL CONT TO MONITOR.
[2017-08-25 08:00] VITALS: BP 113/33
[2017-08-25] MEDS: MULTIVITAMINS,THERAGRAN 1 UDTAB TABLET GT SCH (10:09)
[2017-08-25] MEDS: FAMOTIDINE (20 MG) 20 MG TABLET GT SCH ×2 (10:09→16:50)
[2017-08-25] MEDS: PROSOURCE / PROSTAT (PYXIS) 30 ML UDC GT SCH ×3 (10:09→16:50)
[2017-08-25] MEDS: LACTOBACILLUS RHAMNOSUS GG 1 EACH CAP.SPRINK GT SCH ×2 (10:10→16:50)
[2017-08-25] MEDS: HYDROGEL DRESSING 90 GM TUBE TP SCH (10:10)
[2017-08-25] MEDS: ZINC SULFATE 220 MG CAPSULE GT SCH (10:10)
[2017-08-25] MEDS: ASCORBIC ACID 500 MG TABLET GT SCH ×2 (10:10→16:50)
[2017-08-25] MEDS: FERROUS SULFATE (325 MG) 325 MG/TAB TABLET GT SCH (10:10)
[2017-08-25] MEDS: NUTREN PULMONARY 1,000 ML BAG GT PRN (10:45)
[2017-08-25 12:00] VITALS: BP 131/54
[2017-08-25 16:00] VITALS: BP_SYST 132; BP_SYST 162; BP_DIAS 43
[2017-08-25] MEDS ORDERED: FLUCONAZOLE -DEXT PREMIX 200 MG in PREMIX 1 EA IV SCH (16:00)
--- NOTE | 2017-08-25 19:10 | NUR ---
TECHNICAL SALES SPECIALIST OPENING NOTES RECEIVED REPORT FROM MARCELINO KIMBLE. PATIENT OBTUNDED. TRACH INTACT W/ VENT SETTINGS AC 12, TV 450, FIO2 35%, PEEP 5, TOLERATING WELL. ON TELE SINUS RHYTHM IN THE 90S. RIGHT UPPER ARM MIDLINE INTACT & PATENT W/ DRESSING CDI & IVF NS @ 80 ML/HR. LEFT UPPER ARM MIDLINE INTACT & PATENT W/ DRESSING CDI, SLAINE LOCKED. NG-TUBE IN LEFT NOSTRIL INTACT W/ NGTF NUTREN @ 40 ML/HR, NPO @ MIDNIGHT. NO RESIDUAL NOTED @ THIS TIME. CONTEH CATH DRAINING YELLOW URINE, NO LEAKING NOTED. NO S/S OF PAIN OR DISCOMFORT @ THIS TIME. SAFETY MEASURES IN PLACE W/ SIDE RAILS UP, BED LOCKED & IN LOWEST POSITION & BED ALARM ON. WILL CONTINUE TO MONITOR.
--- NOTE | 2017-08-25 19:25 | NUR ---
RN NOTES PATIENT ENDORSED TO NEXT SHIFT IN STABLE CONDITION FOR CONTINUITY OF CARE. NO SIGNIFICANT CHANGES NOTED. KEPT CLEAN, DRY AND COMFORTABLE. ALL NEEDS ATTENDED. SAFETY MEASURE OBSERVED. CALL LIGHT WITH IN REACH. WILL CONT TO MONITOR.
[2017-08-25 20:00] VITALS: BP 156/37
[2017-08-26] VITALS: BP 133/35
[2017-08-26] MEDS: IPRATROPIUM NEB FS 0.5 MG/2.5 ML AMPUL.NEB IH SCH ×4 (01:14→20:00)
[2017-08-26] MEDS: ALBUTEROL FS 2.5 MG/0.5 ML VIAL.NEB NEB SCH ×4 (01:14→20:00)
[2017-08-26 04:00] VITALS: BP 141/67
--- NOTE | 2017-08-26 07:57 | NUR ---
SUPERVISOR CONTINUOUS WELD PIPE MILL INITIAL NOTES RECEIVED PATIENT IN BED OBTUNDED. TRACH INTACT W/ VENT SETTINGS AC 12, TV 450, FIO2 35%, PEEP 5, TOLERATING WELL. ON TELE SINUS RHYTHM CURRENTLY. RIGHT UPPER ARM MIDLINE INTACT & PATENT W/ DRESSING CLEAN DRY AND INTACT & IVF NS @ 80 ML/HR. LEFT UPPER ARM MIDLINE INTACT & PATENT W/ DRESSING CLEAN DRY , AND INTACT , SALINE LOCKED. PT NPO NO RESIDUAL NOTED @ THIS TIME. CONTEH CATH DRAINING YELLOW URINE, NO LEAKING NOTED. NO S/S OF PAIN OR DISCOMFORT @ THIS TIME. SAFETY MEASURES IN PLACE W/ SIDE RAILS UP, BED LOCKED & IN LOWEST POSITION & BED ALARM ON. RN WILL CONTINUE TO MONITOR.
[2017-08-26 08:00] VITALS: BP 131/79
--- NOTE | 2017-08-26 08:26 | NUR ---
Female trach pt received on mechanical vent. Pt trach is secure. Vent is plugged into a red outlet, alarms are set and audible, and BVM is at bedside. Addendum: 08/26/17 at 0826 by CADEN ZUÑIGA RT Amended: Links added.
[2017-08-26] MEDS: MULTIVITAMINS,THERAGRAN 1 UDTAB TABLET GT SCH (08:35)
[2017-08-26] MEDS: LACTOBACILLUS RHAMNOSUS GG 1 EACH CAP.SPRINK GT SCH ×2 (08:35→16:45)
[2017-08-26] MEDS: ZINC SULFATE 220 MG CAPSULE GT SCH (08:35)
[2017-08-26] MEDS: FAMOTIDINE (20 MG) 20 MG TABLET GT SCH ×2 (08:35→16:45)
[2017-08-26] MEDS: PROSOURCE / PROSTAT (PYXIS) 30 ML UDC GT SCH ×3 (08:35→16:45)
[2017-08-26] MEDS: ASCORBIC ACID 500 MG TABLET GT SCH ×2 (08:35→16:45)
[2017-08-26] MEDS: FERROUS SULFATE (325 MG) 325 MG/TAB TABLET GT SCH (08:35)
[2017-08-26] MEDS: HYDROGEL DRESSING 90 GM TUBE TP SCH (08:36)
[2017-08-26 16:00] VITALS: BP 158/62
[2017-08-26] MEDS: FLUCONAZOLE IN NS,PREMIX 200 MG in PREMIX 1 EA IV SCH ×2 (16:50)
--- NOTE | 2017-08-26 18:44 | NUR ---
RN CLOSING NOTE PATIENT RESTING IN BED RESTING COMFORTABLY. PT DIET SCHEDULED TO ADVANCE AT 8PM , PATIENT IS REMAINS OBTUNDED, NON-VERBAL. NO S/S OF PAIN OR DISCOMFORT. SINUS RHYTHM ON TELE MONITOR. PT HAS HAILY TINSLEY #6 . NO S/S OF RESPIRATORY DISTRESS OR SOB. TOLERATING VENT SETTINGS WELL. SKIN IS WARM AND DRY TO TOUCH. IV SITE FLUSHED, AND PATENT. CONTEH CATHETER DRAINING TO GRAVITY. SAFETY PRECAUTIONS IMPLEMENTED. BED IN LOCKED, LOW POSITION WITH TWO SIDE RAILS UP. RN WILL ENDORSE TO PM RN. PATIENT FAMILY UPDATED ON PLAN OF CARE
--- NOTE | 2017-08-26 19:54 | NUR ---
DISTANCE EDUCATION COORDINATOR OPENING NOTES RECEIVED REPORT FROM MANISHA KIMBLE. PATIENT OBTUNDED. TRACH INTACT W/ VENT SETTINGS AC 12, TV 450, FIO2 35%, PEEP 5, TOLERATING WELL. NO S/S OF RESPIRATORY DISTRESS. ON TELE SINUS RHYTHM IN THE 90S. RIGHT UPPER ARM MIDLINE INTACT & PATENT W/ DRESSING CDI & IVF NS @ 80 ML/HR. LEFT UPPER ARM MIDLINE INTACT & PATENT W/ DRESSING CDI, SALINE LOCKED. NEW G-TUBE INTACT W/ MINIMAL BLEEDING NOTED. CONTEH CATH DRAINING YELLOW URINE, NO LEAKING NOTED. NO S/S OF PAIN OR DISCOMFORT @ THIS TIME. SAFETY MEASURES IN PLACE W/ SIDE RAILS UP, BED LOCKED & IN LOWEST POSITION & BED ALARM ON. WILL CONTINUE TO MONITOR.
[2017-08-26 20:00] VITALS: BP 143/88
[2017-08-26] MEDS: NUTREN PULMONARY 1,000 ML BAG GT PRN (20:36)
[2017-08-27] VITALS: BP 139/62
[2017-08-27] MEDS: ALBUTEROL FS 2.5 MG/0.5 ML VIAL.NEB NEB SCH ×4 (01:53→19:35)
[2017-08-27] MEDS: IPRATROPIUM NEB FS 0.5 MG/2.5 ML AMPUL.NEB IH SCH ×4 (01:53→19:35)
[2017-08-27 04:00] VITALS: BP 153/62
--- NOTE | 2017-08-27 07:30 | NUR ---
MARINE PIPE WELDER AM NOTES RECEIVED PATIENT IN STABLE CONDITION. OBTUNDED, ON SHILEY 6 MECHANICAL VENT DEPENDENT SETTING ORDERED. NOT IN ANY DISTRESS. IN NO APPARENT DISTRESS. TELEMETRY READS SR HR 96, NO SIGNS OF CHEST DISCOMFORT OR PAIN, LENARD MIDLINE FLUSHES WELL, SITE CLEAR, MACARIO MIDLINE WITH 1/2 NS AT 80 ML/HR RUNNING, SITE CLEAR, CONTEH CATH IS IN PLACE, DRAINING ADEQUATE AMOUNT OF URINE, YELLOW CLEAR, GENERALIZED SWELLING, CONTRACTED, BEDREST, S/P PEG PLACEMENT ON 08/26/17, SITE CLEAR, WITH NUTREN AT 25 ML/HR, 10 ML RESIDUAL, SEE NURSING FLOWSHEET FOR SKIN ISSUES. BEDSIDE RAILS ARE UP X2. BED IS LOCKED AND LOWERED. WILL TURN AND REPOSITION Q 2 HOURS. WILL CONTINUE TO MONITOR.
--- NOTE | 2017-08-27 07:31 | NUR ---
RT NOTE PATIENT RECIEVED IN STABLE CONDITION ON MECHANICAL VENT. PATIENT IS TOLERATING CURRENT ORDERED VENT SETTINGS WELL. NO SIGNS OF RESPIRATORY DISTRESS NOTED. TRACH IS PATENT AND SECURE. MECHANICAL VENT IS PLUGGED INTO RED OUTLETS. ALARMS ARE ON AND AUDIBLE. AMBU BAG AND BACKUP TRACH AT BEDSIDE.
[2017-08-27 08:00] VITALS: BP 141/60
--- NOTE | 2017-08-27 09:30 | NUR ---
RN NOTES ADMINISTERED DUE MEDS.
[2017-08-27] MEDS: MULTIVITAMINS,THERAGRAN 1 UDTAB TABLET GT SCH (10:05)
[2017-08-27] MEDS: ZINC SULFATE 220 MG CAPSULE GT SCH (10:05)
[2017-08-27] MEDS: ERGOCALCIFEROL (VITAMIN D 2) 50,000 UNIT CAPSULE GT SCH (10:05)
[2017-08-27] MEDS: ASCORBIC ACID 500 MG TABLET GT SCH ×2 (10:06→17:58)
[2017-08-27] MEDS: FERROUS SULFATE (325 MG) 325 MG/TAB TABLET GT SCH (10:06)
[2017-08-27] MEDS: HYDROGEL DRESSING 90 GM TUBE TP SCH (10:06)
[2017-08-27] MEDS: PROSOURCE / PROSTAT (PYXIS) 30 ML UDC GT SCH ×3 (10:06→17:58)
[2017-08-27] MEDS: FAMOTIDINE (20 MG) 20 MG TABLET GT SCH ×2 (10:06→17:58)
[2017-08-27] MEDS: LACTOBACILLUS RHAMNOSUS GG 1 EACH CAP.SPRINK GT SCH ×2 (10:06→17:58)
[2017-08-27 12:00] VITALS: BP 129/75
[2017-08-27 16:00] VITALS: BP 130/68
--- NOTE | 2017-08-27 16:11 | NUR ---
RN NOTES STARTED DIFLUCAN IV.
--- NOTE | 2017-08-27 16:11 | NUR ---
CAMPUS RECRUITING INTERNSHIP NOTES DIFLUCAN IV STARTED.
[2017-08-27] MEDS: FLUCONAZOLE IN NS,PREMIX 200 MG in PREMIX 1 EA IV SCH ×2 (16:12)
--- NOTE | 2017-08-27 19:33 | NUR ---
NURSERY TEACHER CLOSING NOTES PATIENT IN STABLE CONDITION. MADE COMFORTABLE, OBTUNDED, ON SHILEY 6 MECHANICAL VENT DEPENDENT SETTING ORDERED. NOT IN ANY DISTRESS. TELEMETRY READS SR HR 90s, NO SIGNS OF CHEST DISCOMFORT OR PAIN, LENARD MIDLINE FLUSHES WELL, SITE CLEAR, MACARIO MIDLINE WITH 1/2 NS AT 80 ML/HR RUNNING, SITE CLEAR, CONTEH CATH IS IN PLACE, DRAINING ADEQUATE AMOUNT OF URINE, YELLOW CLEAR, 200 ML OUTPUT, GENERALIZED SWELLING, CONTRACTED, BEDREST, S/P PEG PLACEMENT ON 08/26/17, SITE CLEAR, WITH NUTREN AT 25 ML/HR, 0 ML RESIDUAL, BEDSIDE RAILS ARE UP X2. BED IS LOCKED AND LOWERED. TURNED AND REPOSITIONED Q 2 HOURS. PM CARE DONE. PERFORMED PRESCRIBED WOUND TREATMENT. ALL NEEDS MET. NO OTHER SIGNIFICANT CHANGE IN CONDITION. PATIENT FOR TRANSFER TO [facility]. REPORT GIVEN TO [facility] FACILITY STAFF EARLIER. PATIENT FOR OUTSIDE CONTRACTOR SALES AT [phone]. ENDORSED TO GENARO KIMBLE FOR NICK. PHOTOS OF SKIN ISSUES TAKEN AND PLACED IN CHART.
[2017-08-27 20:00] VITALS: BP 133/60
--- NOTE | 2017-08-27 21:00 | NUR ---
PADDERGRASSLAND CONSERVATIONIST NOTES. PATIENT VITAL SIGNS STABLE. NO SOB ON MECHANICAL VENTILATOR. REMOVED MIDLINE FROM LEFT UPPER ARM AND RIGHT UPPER ARM. EMPTIES CONTEH BAG. REMOVED TELEMETRY BOX FROM PATIENT. PATIENT DISCHARGED DESTINATION TO [facility]. PICKED UP BY TRANSPORTATION STAFF VIA [employer]. BODY ASSESSMENT PICUTRES IN PATIENT'S CHART. PATIENT LEFT UNIT
== END 2017-08-27 20:55 | DRG 870 ==
LOC: ER 02:58 → ICU 05:28 → TELE-TD 20:43 → TELE1 08-14 11:17
PROVIDERS: ADMIT Nurse Practitioner Acute Care; ATTEND Nurse Practitioner Acute Care
PROC: 30233N1 Transfusion of Nonautologous Red Blood Cells into Peripheral Vein, Percutaneous Approach (ICD-10-PCS; 2017-08-13)
PROC: 0DC68ZZ Extirpation of Matter from Stomach, Via Natural or Artificial Opening Endoscopic (ICD-10-PCS; 2017-08-13)
PROC: 30233N1 Transfusion of Nonautologous Red Blood Cells into Peripheral Vein, Percutaneous Approach (ICD-10-PCS; 2017-08-13)
PROC: 05H533Z Insertion of Infusion Device into Right Subclavian Vein, Percutaneous Approach (ICD-10-PCS; 2017-08-13)
PROC: B546ZZA Ultrasonography of Right Subclavian Vein, Guidance (ICD-10-PCS; 2017-08-13)
PROC: 5A1955Z Respiratory Ventilation, Greater than 96 Consecutive Hours (ICD-10-PCS; principal; 2017-08-13 14:35)
PROC: 0DH63UZ Insertion of Feeding Device into Stomach, Percutaneous Approach (ICD-10-PCS; 2017-08-26)
DX: A41.9 Sepsis, unspecified organism (principal); J96.21 Acute and chronic respiratory failure with hypoxia; E43 Unspecified severe protein-calorie malnutrition; G93.40 Encephalopathy, unspecified; I50.33 Acute on chronic diastolic (congestive) heart failure; Z99.11 Dependence on respirator [ventilator] status; L89.324 Pressure ulcer of left buttock, stage 4; K31.6 Fistula of stomach and duodenum; E87.0 Hyperosmolality and hypernatremia; L89.153 Pressure ulcer of sacral region, stage 3; L89.314 Pressure ulcer of right buttock, stage 4; R53.2 Functional quadriplegia; L89.323 Pressure ulcer of left buttock, stage 3; L89.313 Pressure ulcer of right buttock, stage 3; K94.23 Gastrostomy malfunction; D62 Acute posthemorrhagic anemia; N39.0 Urinary tract infection, site not specified; L03.311 Cellulitis of abdominal wall; K94.22 Gastrostomy infection; D64.9 Anemia, unspecified; I11.0 Hypertensive heart disease with heart failure; K21.9 Gastro-esophageal reflux disease without esophagitis; L89.619 Pressure ulcer of right heel, unspecified stage; F03.90 Unspecified dementia, unspecified severity, without behavioral disturbance, psychotic disturbance, mood disturbance, and anxiety; F09 Unspecified mental disorder due to known physiological condition; Z79.899 Other long term (current) drug therapy; R13.10 Dysphagia, unspecified; Y83.3 Surgical operation with formation of external stoma as the cause of abnormal reaction of the patient, or of later complication, without mention of misadventure at the time of the procedure; Y82.9 Unspecified medical devices associated with adverse incidents; Y92.129 Unspecified place in nursing home as the place of occurrence of the external cause; B96.89 Other specified bacterial agents as the cause of diseases classified elsewhere; Z87.81 Personal history of (healed) traumatic fracture; L71.0 Perioral dermatitis
CPT/HCPCS: 31720; 36415; 36569; 43235; 71010-TC; 71045-TC; 80048-TC; 80061-TC; 80076-TC; 81000-TC; 82272-TC; 82962-TC; 83605-TC; 83735-TC; 83880; 84100-TC; 84484-TC; 85025-TC; 85027-TC; 85730-TC; 86850-TC; 86921-TC; 87040-TC; 87081-TC; 87086-TC; 87186-TC; 93307-TC; 93971-TC; 94003-TC; 94760-TC; 94762-TC; A4216; A4606; A6248; A6253; A6402; A6403; A7526; J0690; J0696; J0713; J1450; J2185; J2704; J3475; J3490; J7030; J7050; J7060; P9016-BL; Q9967; Z7610

== ENCOUNTER 2017-09-18 07:14 | Inpatient (IN) | payer MEDICARE, OTHER ==
[~2017-09-18] VITALS: Ht 152.4 cm; Wt 66.2 kg
[~2017-09-18 07:14] MED LIST: ACET325T53 GT; ALBU2.5V13 IH; ASCORBIC ACID GT; BALS60OI TP; DOCU100C36 GT; DOXY100C41 GT; ERGO500040 GT; FAMO20TA80 GT; FERR324T11 GT; IPRA0.2S49 IH; LACT1CAP57 GT; MULT1TAB73 GT; NYST5ORA TP; ONDA4TAB5 GT; PROT946L GT; ZINC25CA GT
[2017-09-18 07:25] VITALS: BP 124/68
--- NOTE | 2017-09-18 07:33 | NUR ---
DEEPA FROM [facility] FOR BUE/BLE EDEMA AND GENERALIZED RASH PER FAMILY. PATIENT IS OBTUNDED, VENT/TRACH DEPENDENT, NO RESPIRATORY DISTRESS. MIDLINE IN PLACE ON MACARIO. G-TUBE INTACT AND PATENT. CONTEH CATH IN PLACE AND DRAINING. VITALS STABLE. NAD, SAFETY AND COMFORT MEASURES IN PLACE. AWAITING MD ORDERS.
--- NOTE | 2017-09-18 07:40 | NUR ---
NETWORK SECURITY ANALYST AT BEDSIDE FOR BLOOD DRAW.
--- NOTE | 2017-09-18 07:54 | NUR ---
INSPECTOR GOVERNMENT PROPERTY AT BEDSIDE.
[2017-09-18] MEDS ORDERED: DIPH50VI4 IM (08:23)
[2017-09-18] MEDS ORDERED: MAGN400O6 GT (08:23)
[2017-09-18] MEDS ORDERED: IPRA0.2S9 IH ×2 (08:23)
[2017-09-18] MEDS ORDERED: MAG30ORA GT (08:23)
[2017-09-18] MEDS ORDERED: ZINC220C8 GT (08:23)
[2017-09-18] MEDS ORDERED: ASCO500T9 GT (08:23)
[2017-09-18] MEDS ORDERED: LACT-96 GT (08:23)
[2017-09-18] MEDS ORDERED: TRIA80OI TP (08:23)
[2017-09-18] MEDS ORDERED: HYDR-3974 GT ×2 (08:23)
[2017-09-18] MEDS ORDERED: ONDA4VIA30 IM (08:23)
[2017-09-18] MEDS ORDERED: MULT-659 GT (08:23)
[2017-09-18 08:26] LABS: BASOPHILS % (AUTO) 0.1 % (0.0-2.0); EOSINOPHILS # (AUTO) 0.8 /CMM (0.0-0.7); EOSINOPHILS % (AUTO) 4.7 % (0.0-6.0); HEMATOCRIT 22 % (33-45); HEMOGLOBIN 7.4 g/dL (11.5-14.8); LYMPHOCYTES # (AUTO) 0.9 /CMM (0.8-4.8); LYMPHOCYTES % (AUTO) 5.4 % (20.0-44.0); MEAN CORPUSCULAR HEMOGLOBIN 33 PG (26.0-33.0); MEAN CORPUSCULAR HGB CONC 34 g/dl (31.0-36.0); MEAN CORPUSCULAR VOLUME 96 fL (82-100); MONOCYTES # (AUTO) 0.1 /CMM (0.1-1.30); MONOCYTES % (AUTO) 0.9 % (2.0-12.0); NEUTROPHILS # (AUTO) 14.6 /CMM (1.8-8.9); NEUTROPHILS % (AUTO) 88.9 % (43.0-81.0); PLATELET COUNT (AUTO) 313 /CMM (150-450); RDW COEFFICIENT OF VARIATION 19.9 (11.5-15.0); RED BLOOD CELL COUNT(AUTO) 2.26 MIL/uL (4.0-5.2); WHITE BLOOD COUNT (AUTO) 16.4 K/uL (4.3-11.0)
[2017-09-18 08:41] LABS: INR 1.27 (0.87-1.13)
[2017-09-18 08:46] LABS: TROPONIN I 0.025 ng/mL (0.00-0.056)
[2017-09-18 09:00] VITALS: BP 123/63
--- NOTE | 2017-09-18 09:02 | NUR ---
PT RECEIVED IN ER FROM [facility]. NO SOB/RESP DISTRESS NOTED. PT TRACH WITH SHILEY #6 CUFFED. PLACED PT ON MECHANICAL VENTILATOR ON SETTINGS AC- RESP RATE: 12, VT 450, 40%, PEEP 5, PER MD. SUCTIONED LARGE AMOUNT OF PINK TINGED, RED SPECK, WALKER, THICK SECRETIONS. BREATH SOUNDS BILATERAL COARSE. PT AIRWAY PATENT AND SECURE. VENT ALARMS SET AND AUDIBLE. SPARE TRACH AT BEDSIDE, AMBU BAG AT BEDSIDE. WILL CONTINUE TO MONITOR PT. Addendum: 09/18/17 at 0906 by LAURA FONSECA RT Amended: Links added.
[2017-09-18 09:06] LABS: ALANINE AMINOTRANSFERASE 49 U/L (12-78); ALKALINE PHOSPHATASE 341 U/L (46-116); ASPARTATE AMINOTRANSFERASE 28 U/L (15-37); B-TYPE NATRIURETIC PEPTIDE 33623 PG/ML (0-125); BILIRUBIN,DIRECT 0.1 mg/dL (0.0-0.2); BILIRUBIN,TOTAL 0.3 mg/dL (0.2-1.0); CALCIUM, SERUM 6.5 mg/dL (8.5-10.1); CARBON DIOXIDE 18 mmol/L (21-32); CHLORIDE 106 mmol/L (98-107); CREATININE 2.7 mg/dL (0.6-1.3); GLUCOSE 105 mg/dL (74-106); SODIUM SERUM 136 mmol/L (136-145); TOTAL PROTEIN, SERUM 5.8 g/dL (6.4-8.2)
[2017-09-18 09:27] LABS: ALBUMIN 0.9 g/dL (3.4-5.0); POTASSIUM 7.3 mmol/L (3.5-5.1); UREA NITROGEN, BLOOD 107 mg/dL (7-18)
[2017-09-18] MEDS ORDERED: DIATR MEGLU/DIATRIZOATE SODIUM 30 ML BOTTLE (GASTROGRAPHIN) ONE ×2 (09:28→09:31)
[2017-09-18 10:40] VITALS: BP 140/80
[2017-09-18 11:43] LABS: CALCIUM, SERUM 6.5 mg/dL (8.5-10.1); CARBON DIOXIDE 20 mmol/L (21-32); CHLORIDE 106 mmol/L (98-107); CREATININE 2.8 mg/dL (0.6-1.3); GLUCOSE 98 mg/dL (74-106); SODIUM SERUM 136 mmol/L (136-145)
[2017-09-18 11:45] LABS: POTASSIUM 7.2 mmol/L (3.5-5.1); UREA NITROGEN, BLOOD 120 mg/dL (7-18)
[2017-09-18] MEDS ORDERED: INSULIN REGULAR, HUMAN 100 UNIT/ML 10 ML VIAL IV ONE (12:00)
[2017-09-18] MEDS ORDERED: FUROSEMIDE 40 MG/4 ML VIAL IV ONE (12:00)
[2017-09-18] MEDS ORDERED: DEXTROSE 50%-WATER 50 ML DISP.SYRIN IVP ONE (12:00)
[2017-09-18] MEDS ORDERED: FUROSEMIDE 100 MG/10 ML VIAL ONE (12:39)
[2017-09-18] MEDS ORDERED: INSULIN REGULAR, HUMAN 100 UNIT/ML 10 ML VIAL ONE (12:40)
[2017-09-18] MEDS ORDERED: DEXTROSE 50%-WATER 50 ML DISP.SYRIN ONE (12:40)
--- NOTE | 2017-09-18 12:55 | NUR ---
PATIENT TRANSPORTED TO [facility] VIA ACLS PROTOCOL. REPORT GIVEN TO RNHELADIO. PATIENT REMAINS STABLE. HELADIO TO PROVIDE NICK.
[2017-09-18 13:00] VITALS: BP 124/58
--- NOTE | 2017-09-18 13:00 | NUR ---
RN INITIAL NOTE PATIENT RECEIVED VIA GURNEY FROM ER. PATIENT IS OBTUNDED. HAS TRACH, NON-VERBAL. TOLERATING VENT SETTINGS WELL. CONTEH CATHETER DRAINING TO GRAVITY. GTUBE IS CLAMPED. SKIN IS WARM AND DRY TO TOUCH. IV SITE FLUSHED, PATENT. SAFETY PRECAUTIONS IN PLACE. WILL CONTINUE TO MONITOR.
[2017-09-18] MEDS ORDERED: MAGNESIUM HYDROXIDE 30 ML UDC PO PRN (13:30)
[2017-09-18] MEDS ORDERED: ZOLPIDEM TARTRATE 5 MG TABLET PO PRN (13:30)
[2017-09-18] MEDS ORDERED: MAG HYDROX/AL HYDROX/SIMETH 30 ML UDC PO PRN (13:30)
[2017-09-18] MEDS ORDERED: FUROSEMIDE 20 MG/2 ML VIAL IV ONE (13:30)
--- NOTE | 2017-09-18 14:00 | NUR ---
RN NOTE PATIENT HAD THREE EPISODES OF WATERY BOWEL MOVEMENTS. STOOL SAMPLE OBTAINED. INSERTED FLEX SEAL BUT WOULD NOT REMAIN IN RECTUM.
[2017-09-18 14:14] LABS: IRON, SERUM 57 ug/dl (50-175); TOTAL IRON BINDING CAPACITY 72 ug/dl (250-450)
[2017-09-18] MEDS ORDERED: HYDROGEL DRESSING 90 GM TUBE TP PRN (15:00)
--- NOTE | 2017-09-18 15:02 | NUR ---
WOUND CARE CONSULT: PT PRESENTS WITH MULTIPLE WOUNDS INCLUDING RT MEDIAL KNEE OPEN BLISTER, RT LATERAL LOWER LEG DRY ABRASION, STAGE 4 ULCER TO RT BUTTOCK, STAGE 3 ULCER TO SACRUM EXTENDING TO BUTTOCKS, ALL PRESENT ON ADMISSION. PT IS INCONTINENT OF LIQUID STOOL. RECTAL TUBE INSERTED BY NURSE. PT NOTED TO HAVE 4+ PITTING EDEMA WHICH IS GENERALIZED. ALL SKIN PROTECTION AND WOUND RECOMMENDATIONS DISCUSSED WITH NURSING STAFF. RECOMMEND SURGICAL CONSULT. WILL SEE PRN. PT ON [facility] BED. IN AGREEMENT WITH PLAN OF CARE. Addendum: 09/18/17 at 1504 by TRINA GANNON WNDNU Amended: Links added.
[2017-09-18] MEDS: HYDROGEL DRESSING 90 GM TUBE TP SCH (15:48)
[2017-09-18] MEDS: ALBUMIN 25% 25 GM in PREMIX 1 EA IV SCH ×2 (15:48→20:07)
[2017-09-18 16:00] VITALS: BP 122/62
--- NOTE | 2017-09-18 19:30 | NUR ---
REINSPECTOR INITIAL NOTE PT RECEIVED IN BED WITH SON AT BEDSIDE. OBTUNDED. ON MECH VENT WITH SETTINGS WELL TOLERATED AND SATURATING 100%. TELE-SINUS RHYTHM 86. IV MACARIO #18 CLEAN,DRY, PATENT AND INTACT. GTUBE IN PLACE, FLUSHING WELL AND NO RESIDUALS NOTED. GTUBE CLAMPED AT THIS TIME AND PT NPO. WILL FOLLOW UP WITH FURTHER ORDERS FOR FEEDING. OCNTEH CATHETER IN PLACE AND DRAINING YELLOW URINE WITH SEDIMENT. HOB ELEVATED AND ON ASPIRATION PRECAUTIONS. ISOLATION PRECAUTIONS OBSERVED. WILL CONTINUE TO MONITOR.
[2017-09-18 20:00] VITALS: BP 131/53
[2017-09-18] MEDS ORDERED: NUTREN PULMONARY 1,000 ML BAG GT PRN (21:30)
[2017-09-19] VITALS (14 sets, daily range): BP systolic 107–148; BP diastolic 44–77
--- NOTE | 2017-09-19 | NUR ---
LOG HAULER NOTE SPOKE WITH ROTARY OPERATOR DR. MULLER WITH NEW ORDER TO START GTUBE FEEDING. ORDERS NOTED AND CARRIED OUT.
--- NOTE | 2017-09-19 00:30 | NUR ---
EXERCISER HORSE NOTE DAUGHTER AT BEDSIDE ASKING FOR A SENIOR PROFESSIONAL SERVICES CONSULTANT OR CONCRETE VAULT MAKER TO ASSIST WITH BETTER PLACEMENT OR POSSIBLE PLACEMENT AT HOME WITH FAMILY. WILL ENDORSE TO MORNING SHIFT.
[2017-09-19] MEDS: ALBUMIN 25% 25 GM in PREMIX 1 EA IV SCH ×2 (01:05→08:09)
--- NOTE | 2017-09-19 05:55 | NUR ---
RT Pt [facility] ordered settings. no resp distress. Addendum: 09/19/17 at 0556 by MAR JIMENEZ RT Amended: Links added.
[2017-09-19 07:04] LABS: BASOPHILS % (AUTO) 0.1 % (0.0-2.0); EOSINOPHILS % (AUTO) 9.9 % (0.0-6.0); HEMATOCRIT 21 % (33-45); LYMPHOCYTES # (AUTO) 0.5 /CMM (0.8-4.8); LYMPHOCYTES % (AUTO) 4.9 % (20.0-44.0); MEAN CORPUSCULAR HEMOGLOBIN 33 PG (26.0-33.0); MEAN CORPUSCULAR HGB CONC 34 g/dl (31.0-36.0); MEAN CORPUSCULAR VOLUME 97 fL (82-100); MONOCYTES % (AUTO) 0.3 % (2.0-12.0); NEUTROPHILS # (AUTO) 8.5 /CMM (1.8-8.9); NEUTROPHILS % (AUTO) 84.8 % (43.0-81.0); PLATELET COUNT (AUTO) 318 /CMM (150-450); RDW COEFFICIENT OF VARIATION 19.3 (11.5-15.0); RED BLOOD CELL COUNT(AUTO) 2.13 MIL/uL (4.0-5.2); RETICULOCYTE COUNT 3.1 % (0.6-2.5)
[2017-09-19 07:13] LABS: INR 1.38 (0.87-1.13)
[2017-09-19 07:14] LABS: ALANINE AMINOTRANSFERASE 37 U/L (12-78); ALBUMIN 2.3 g/dL (3.4-5.0); ALKALINE PHOSPHATASE 234 U/L (46-116); AMYLASE 20 U/L (25-115); ASPARTATE AMINOTRANSFERASE 22 U/L (15-37); BILIRUBIN,DIRECT 0.2 mg/dL (0.0-0.2); BILIRUBIN,TOTAL 0.5 mg/dL (0.2-1.0); CALCIUM, SERUM 6.9 mg/dL (8.5-10.1); CARBON DIOXIDE 16 mmol/L (21-32); CHLORIDE 106 mmol/L (98-107); CREATININE 2.9 mg/dL (0.6-1.3); GLUCOSE 64 mg/dL (74-106); LIPASE 74 U/L (73-393); MAGNESIUM 1.6 mg/dL (1.8-2.4); SODIUM SERUM 138 mmol/L (136-145); TOTAL PROTEIN, SERUM 6.4 g/dL (6.4-8.2)
[2017-09-19 07:18] LABS: CHOLESTEROL 75 mg/dL (<200); CREATINE KINASE MB 1.3 ng/mL (0-3.6); HDL CHOLESTEROL 13 mg/dL (40-60); LDL 39 mg/dL (0-99); PREALBUMIN 11.3 MG/DL (18.0-35.7); THYROID STIMULATING HORMONE 0.936 uIU/mL (0.358-3.74); TRIGLYCERIDES 33 mg/dL (30-150)
[2017-09-19 07:24] LABS: HEMOGLOBIN 6.9 g/dL (11.5-14.8)
[2017-09-19] MEDS ORDERED: NUTREN PULMONARY 1,000 ML BAG GT PRN (07:25)
--- NOTE | 2017-09-19 07:55 | NUR ---
ASSISTANT CLINICAL NURSE MANAGER NOTE: RECEIVED PATIENT IN BED, ASLEEP AND RESTING COMFORTABLE IN BED. HOB ELEVATED. NOT ON ANY FORM OF DISTRESS. NO S/S OF DISCOMFORT OR PAIN NOTED. ON GT FEEDING (NUTREN @40ML/HR) AND TOLERATING IT WELL. NO RESIDUAL NOTED. ON VENT-TRACH DEPENDENT, CURRENT SETTING WELL TOLERATED. SATURATING 100%. BED ALARM AND LOCKED ON AT ALL TIMES. CALL LIGHT WITHIN REACH.
--- NOTE | 2017-09-19 08:00 | NUR ---
ANATOMY TEACHER NOTE: CALLED AND SPOKE WITH DR. ROWLAND AND MADE HER AWARE OF THE PT'S HGB/HCT (6.9) AND MD WITH ORDER FOR 1 UNIT PRBC AND RECHECK CBC 1 HOUR AFTER THE BLOOD TRANSFUSION. CALLED AND SPOKE WITH MOHAN CISSE, DAUGHTER AND MADE HER AWARE OF THE PT'S BLOOD LEVEL (H/H) AND THE MD ORDER FOR BLOOD TRANSFUSION. SHE AGREED AND VERIFIED VERBAL CONSENT OVER THE PHONE WITH ANOTHER RN.
[2017-09-19 08:15] LABS: B-TYPE NATRIURETIC PEPTIDE 25726 PG/ML (0-125)
[2017-09-19 08:16] LABS: POTASSIUM 7.1 mmol/L (3.5-5.1); UREA NITROGEN, BLOOD 120 mg/dL (7-18)
[2017-09-19 08:57] LABS: EOSINOPHILS % (MANUAL) 5 % (0-4); LYMPHOCYTES % (MANUAL) 6 % (16-48); MONOCYTES % (MANUAL) 1 % (0-11.0); NEUTROPHILS % (MANUAL) 88 (42-76)
[2017-09-19] MEDS: HYDROGEL DRESSING 90 GM TUBE TP SCH (09:38)
[2017-09-19] MEDS: PANTOPRAZOLE 40 MG VIAL IV SCH (09:38)
[2017-09-19] MEDS ORDERED: SODIUM BICARBONATE SYR 50 MEQ/50 ML DISP.SYRIN IV ONE (12:30)
[2017-09-19] MEDS ORDERED: SODIUM POLYSTYRENE SULFONATE 15 G/60 ML BOTTLE RC ONE (12:30)
--- NOTE | 2017-09-19 12:30 | NUR ---
C D STRIPPER NOTE: DR. PURCELL CAME AND SPOKE WITH PT'S DAUGHTER MOHAN, PRESENT AT BEDSIDE. PER DAUGHTER'S REQUEST SHE WANTED THE CONTEH CATHETER TO BE REMOVE. PER , OK OT REMOVE CONTEH CATHETER.
--- NOTE | 2017-09-19 13:00 | NUR ---
CHAIN HOIST OPERATOR NOTE: CONTEH CATHETER WAS REMOVED. CATHETER TIP PATENT AND INTACT UPON REMOVAL. NO DISTRESS NOTED WITH THE PATIENT. WILL MONITOR FOR ANY S/S OF URINARY RETENTION.
[2017-09-19 13:03] LABS: ABG BASE EXCESS -7.7 mmol/L; ABG OXYGEN SATURATION 98.1 % (92.0-98.5); ABG PCO2 28.6 mmHg (35.0-45.0); ABG PH 7.379 (7.350-7.450); ABG PO2 148.5 mmHg (75.0-100.0); AaDO2 103.8 mmHg; COHb 0.3 % (0.5-1.5); MetHb 0.8 % (0.0-1.5); SITE, ABG Right Radial; VENT MODE, BG AC 12 450 40% +5
--- NOTE | 2017-09-19 14:41 | NUR ---
FIRER LOCOMOTIVE NOTE: DR. ROWLAND INFORMED ABOUT THE PATIENT'S MRSA NARE (+). WITH NEW ORDER FOR BACTROBAN OINTMENT.
[2017-09-19 15:10] LABS: APPEARANCE,URINE TURBID (CLEAR); BILIRUBIN,URINE NEGATIVE (NEGATIVE); BLOOD, URINE 1+ Ery/uL (NEGATIVE); COLOR,URINE YELLOW (YELLOW); KETONES,URINE NEGATIVE (NEGATIVE); LEUKOCYTE ESTERASE ,URINE 3+ (NEGATIVE); NITRITE, URINE NEGATIVE (NEGATIVE); PROTEIN,URINE 2+ mg/dl (NEGATIVE); UGLUCOSE NEGATIVE (NEGATIVE); UROBILINOGEN,URINE 0.2 EU/dL (0.2)
[2017-09-19 15:19] LABS: EOSINOPHILS # (AUTO) 1.1 /CMM (0.0-0.7); EOSINOPHILS % (AUTO) 8.9 % (0.0-6.0); HEMATOCRIT 24 % (33-45); HEMOGLOBIN 8.1 g/dL (11.5-14.8); LYMPHOCYTES # (AUTO) 0.4 /CMM (0.8-4.8); LYMPHOCYTES % (AUTO) 3.7 % (20.0-44.0); MEAN CORPUSCULAR HEMOGLOBIN 32 PG (26.0-33.0); MEAN CORPUSCULAR HGB CONC 34 g/dl (31.0-36.0); MEAN CORPUSCULAR VOLUME 93 fL (82-100); MONOCYTES # (AUTO) 0.1 /CMM (0.1-1.30); MONOCYTES % (AUTO) 0.7 % (2.0-12.0); NEUTROPHILS # (AUTO) 10.3 /CMM (1.8-8.9); NEUTROPHILS % (AUTO) 86.7 % (43.0-81.0); PLATELET COUNT (AUTO) 293 /CMM (150-450); RDW COEFFICIENT OF VARIATION 19.6 (11.5-15.0); RED BLOOD CELL COUNT(AUTO) 2.54 MIL/uL (4.0-5.2); WHITE BLOOD COUNT (AUTO) 11.9 K/uL (4.3-11.0)
[2017-09-19 15:34] LABS: BACTERIA,URINE Few /HPF (None Seen); SQUAMOUS EPITHELIAL CELL,UR Few /HPF (None Seen); WBC,URINE TOO NUMEROUS TO COUN /HPF (0-3)
[2017-09-19] MEDS: MUPIROCIN OINT 2% 22 GM TUBE SCH ×2 (15:43→21:02)
[2017-09-19 16:02] LABS: CALCIUM, SERUM 6.9 mg/dL (8.5-10.1); CARBON DIOXIDE 19 mmol/L (21-32); CHLORIDE 108 mmol/L (98-107); CREATININE 2.9 mg/dL (0.6-1.3); GLUCOSE 116 mg/dL (74-106); SODIUM SERUM 142 mmol/L (136-145)
[2017-09-19 16:09] LABS: POTASSIUM 7.1 mmol/L (3.5-5.1); UREA NITROGEN, BLOOD 127 mg/dL (7-18)
--- NOTE | 2017-09-19 16:20 | NUR ---
TICKET MAKER NOTE: CALLED AND PAGED DR. PURCELL RE: PT'S BUN 127 & K+ 7.1 MADE MD AWARE THAT THE PATIENT'S KAYEXALATE GIVEN RECTALLY DIRECTED WAS RELEASED UPON PATIENT'S BM. MD AWARE OF THE SOFT BM X 2 TODAY. AWAITING FOR MD'S CALL BACK.
[2017-09-19 17:12] LABS: CREATININE, URINE < 13.0 MG/DL (30.0-125.0); URINE SODIUM, RANDOM 82 mmol/l (40-220); URINE TOTAL PROTEIN 162.5 mg/dL (0-11.9)
[2017-09-19] MEDS: RENAL NOVASOURCE 1,000 ML BOTTLE GT PRN (18:11)
--- NOTE | 2017-09-19 19:00 | NUR ---
RN NOTES: RECEIVED PATIENT LYING ON BED,ON VENTILATOR, WITH PEG FEED ONGOING OF NOVASOURCE AT 25 ML/HR, PEG SITE INTACT;ON TELE MONITOR SR-RATE-84,MACARIO-MIDLINE INTACT;PATIENT IS OBSTUNDED, ON ISOLATION PRECAUTION FOR POSSIBLE C-DIFF AND MRSA-NARES,PER ENDORSEMENT CONTEH CATH REMOVE AT AROUND 1PM, PRIOR ENDORSEMENT PATIENT HAD BM AND URINE ON DIAPER;WILL CONTINUE TO MONITOR FOR POST BT REACTION.KEPT ON CLOSE WATCH, FALL,SAFETY AND ASPIRATION PRECAUTION OBSERVED, CALL LIGHT WITHIN EASY REACH.
--- NOTE | 2017-09-19 19:30 | NUR ---
CUSTOMER FIELD REPRESENTATIVE NOTE: PATIENT WAS CHANGED DUE TO BM MIXED WITH URINE. CHANGED AND REPOSITIONED. DRESSINGS CHANGED WELL. REPORT ENDORSED TO LAMIN CROUCH FOR CONTINUITY OF CARE.
--- NOTE | 2017-09-19 19:32 | NUR ---
PT RCVD ON VENT WITH NOTED SETTINGS. VENTS PLUGGED INTO RED OUTLET, VENT ALARM WORKING AND AUDIBLE. SUCTIONED LARGE AMOUNT OF YELLOW THICK SECRETIONS WITH TINGED BLOOD . BILATERAL BS NOTED, NO RESPIRATORY DISTRESS NOTED AT THIS TIME. WILL CONTINUE TO MONITOR THE PT.
--- NOTE | 2017-09-19 21:16 | NUR ---
RN NOTES: PER ENDORSEMENT PMD OFFICE WAS NOTIFIED, F/U AGAIN, SPOKE WITH KALEB IN PMD ANSWERING SERVICE.AWAITING FOR RETURN CALL FROM (BROOM WORKER).
--- NOTE | 2017-09-19 21:30 | NUR ---
RN NOTES: -CALLED DR. TRUJILLO AND NOTIFIED REGARDING PATIENT RESULT K-7.1,RECEIVED AN ORDER AND READ BACK TO . NOTIFIED CN. -215-ORDER WAS FAX TO IMPROVEMENT ENGINEER AND VERIFIED ORDER ,SHE ADVISE TO CLARIFY WITH PHARMACIST FIRST CALLED, GABE(PHAMACIST) AND ADVISE TO VERIFY DOSING WITH THE DOCTOR. -2220-CALLED BACK AGAIN AND VERIFIED ORDER,HE SAID MEDICATION SHOULD BE GIVEN ORDERED. -2313-CALLED BACK GABE AGAIN AND REQUEST TO PREPARE THE MEDICATION.
[2017-09-19] MEDS ORDERED: FUROSEMIDE 40 MG/4 ML VIAL IV ONE (22:30)
[2017-09-19] MEDS ORDERED: SODIUM POLYSTYRENE SULFONATE 15 G/60 ML BOTTLE PEG ONE (22:30)
[2017-09-19] MEDS ORDERED: ALBUTEROL FS 2.5 MG/3 ML VIAL.NEB NEB ONE (22:30)
[2017-09-19] MEDS ORDERED: IV NS 0.9% 1,000 ML IV ONE (22:30)
[2017-09-19] MEDS ORDERED: INSULIN REGULAR, HUMAN 100 UNIT/ML 3 ML VIAL SQ ONE (22:30)
[2017-09-19] MEDS ORDERED: DEXTROSE 50%-WATER 50 ML DISP.SYRIN IVP ONE (22:30)
[2017-09-19] MEDS ORDERED: SODIUM POLYSTYRENE SULFONATE 15 G/60 ML BOTTLE ONE (22:51)
[2017-09-19] MEDS ORDERED: Calcium Gluconate 0.465 MEQ/ML VIAL IV ONE (23:00)
[2017-09-19] MEDS ORDERED: D5W IV ONE ×2 (23:30)
[2017-09-19] MEDS ORDERED: CALCIUM GLUCONATE IV ONE ×2 (23:30)
[2017-09-20] VITALS (8 sets, daily range): BP systolic 109–141; BP diastolic 56–83
[2017-09-20] MEDS ORDERED: SODIUM BICARBONATE SYR 50 MEQ/50 ML DISP.SYRIN IV ONE
--- NOTE | 2017-09-20 02:00 | NUR ---
RN NOTES: AT 2334 BLOOD SUGAR CHECK-115,REST OF MEDICATION ORDERED GIVEN TO THE PATIENT.
[2017-09-20] MEDS: Sodium Bicarbonate 75 MEQ in IV 1/2NS 1000 ML 1,000 ML IV PRN ×2 (02:37→18:49)
--- NOTE | 2017-09-20 04:00 | NUR ---
RN NOTES: TURNING AND REPOSITIONING DONE, BED BATH RENDERED, CLEAN AND CHANGE, WHILE CHANGING THE DIAPER SHE IS PASSING, YELLOWISH COLORED WATERY STOOL WITH FOUL SMELL IN LARGE AMOUNT, DRESSING ON THE PRESSURE AREAS DONE,SUCTIONING DONE,THEN KEPT IN SEMI FOWLERS POSITION,OFF LOADING,CALL LIGHT WITHIN EASY REACH.
[2017-09-20 06:45] LABS: BASOPHILS % (AUTO) 0.2 % (0.0-2.0); EOSINOPHILS % (AUTO) 10.4 % (0.0-6.0); HEMATOCRIT 25 % (33-45); HEMOGLOBIN 8.7 g/dL (11.5-14.8); LYMPHOCYTES # (AUTO) 0.7 /CMM (0.8-4.8); LYMPHOCYTES % (AUTO) 7.3 % (20.0-44.0); MEAN CORPUSCULAR HEMOGLOBIN 32 PG (26.0-33.0); MEAN CORPUSCULAR HGB CONC 34 g/dl (31.0-36.0); MEAN CORPUSCULAR VOLUME 93 fL (82-100); MONOCYTES # (AUTO) 0.1 /CMM (0.1-1.30); MONOCYTES % (AUTO) 0.5 % (2.0-12.0); NEUTROPHILS # (AUTO) 7.7 /CMM (1.8-8.9); NEUTROPHILS % (AUTO) 81.6 % (43.0-81.0); PLATELET COUNT (AUTO) 291 /CMM (150-450); RDW COEFFICIENT OF VARIATION 19.9 (11.5-15.0); RED BLOOD CELL COUNT(AUTO) 2.71 MIL/uL (4.0-5.2); WHITE BLOOD COUNT (AUTO) 9.4 K/uL (4.3-11.0)
[2017-09-20 07:07] LABS: CALCIUM, SERUM 7.1 mg/dL (8.5-10.1); CARBON DIOXIDE 23 mmol/L (21-32); CHLORIDE 113 mmol/L (98-107); CREATININE 3.1 mg/dL (0.6-1.3); GLUCOSE 84 mg/dL (74-106); MAGNESIUM 1.6 mg/dL (1.8-2.4); SODIUM SERUM 149 mmol/L (136-145)
[2017-09-20 07:21] LABS: CREATINE KINASE, TOTAL 24 U/L (26-192)
[2017-09-20 07:23] LABS: ALANINE AMINOTRANSFERASE 39 U/L (12-78); ALKALINE PHOSPHATASE 238 U/L (46-116); ASPARTATE AMINOTRANSFERASE 20 U/L (15-37); BILIRUBIN,TOTAL 0.5 mg/dL (0.2-1.0); PHOSPHORUS 6.7 mg/dL (2.5-4.9); TOTAL PROTEIN, SERUM 6.2 g/dL (6.4-8.2)
--- NOTE | 2017-09-20 07:30 | NUR ---
RN NOTES: ENDORSED FOR CONTINUITY OF CARE, OBSTUNDED, ON VENTILATOR, ON TELE-MONITOR SR RATE 88;NO SIGN OF RESPIRATORY DEPRESSION NOTED,RELATIVES CAME IN LAST NIGHT AT AROUND 2300(SON ALI) AND 0200((2 DAUGHTER), EXPLAINED TO THEM PATIENT ON GOING TREATMENT FOR HYPERKALEMIA,STILL ON PEG FEED OF NOVASOURCE AT 25 ML/HR,SC DONE UNDER ASEPTIC TECHNIQUE,URINE OBTAINED FOR TEST,HERBARIUM CURATOR NOTIFIED,IVF ONGOING.BED LOW AND LOCKED, ISOLATION PRECAUTION OBSERVED.
[2017-09-20 07:40] LABS: POTASSIUM 6.7 mmol/L (3.5-5.1); UREA NITROGEN, BLOOD 120 mg/dL (7-18)
[2017-09-20 07:43] LABS: APPEARANCE,URINE CLOUDY (CLEAR); BILIRUBIN,URINE NEGATIVE (NEGATIVE); BLOOD, URINE 1+ Ery/uL (NEGATIVE); COLOR,URINE YELLOW (YELLOW); KETONES,URINE NEGATIVE (NEGATIVE); LEUKOCYTE ESTERASE ,URINE 3+ (NEGATIVE); NITRITE, URINE NEGATIVE (NEGATIVE); PH,URINE 6.5 (5.0-8.0); PROTEIN,URINE 2+ mg/dl (NEGATIVE); UGLUCOSE NEGATIVE (NEGATIVE); UROBILINOGEN,URINE 0.2 EU/dL (0.2)
[2017-09-20 08:34] LABS: CREATININE, URINE < 13.0 MG/DL (30.0-125.0); URINE SODIUM, RANDOM 91 mmol/l (40-220); URINE TOTAL PROTEIN 167.7 mg/dL (0-11.9)
[2017-09-20] MEDS ORDERED: Magnesium 1GM/D5W 100ML PREMIX 100 ML IV SCH (08:54)
[2017-09-20] MEDS ORDERED: SODIUM POLYSTYRENE SULFONATE 15 G/60 ML BOTTLE PO ONE (09:00)
[2017-09-20 09:33] LABS: WBC,URINE TOO NUMEROUS TO COUN /HPF (0-3)
[2017-09-20 09:34] LABS: BACTERIA,URINE Few /HPF (None Seen); EOSINOPHIL,URINE None Seen; SQUAMOUS EPITHELIAL CELL,UR Few /HPF (None Seen)
[2017-09-20] MEDS: PANTOPRAZOLE 40 MG VIAL IV SCH (10:12)
[2017-09-20] MEDS: MUPIROCIN OINT 2% 22 GM TUBE SCH ×2 (10:13→20:50)
[2017-09-20] MEDS: HYDROGEL DRESSING 90 GM TUBE TP SCH (10:14)
[2017-09-20 10:16] LABS: ABG BASE EXCESS -1.4 mmol/L; ABG OXYGEN SATURATION 89.3 % (92.0-98.5); ABG PCO2 37.1 mmHg (35.0-45.0); ABG PO2 59.8 mmHg (75.0-100.0); AaDO2 182.7 mmHg; COHb 0.3 % (0.5-1.5); MetHb 0.6 % (0.0-1.5); O2Hb 88.5 % (94.0-97.0); PEEP,BG 5 cm H2O; SITE, ABG Right Radial; VT, ABG 450 mL
--- NOTE | 2017-09-20 14:54 | NUR ---
RN NOTE SPOKE EARLIER WITH DR ROWLAND REGARDING THE POTASSIUM LEVEL AND BUN, SHE ORDERED KYAXALATE AND TO NOTIFY NEPHROLOGY DR ABOUT NEED OF HD. LATER TEMPORARY HD CATHETER WAS INSERTED BY GUCCI ORTIZ IN R FEMORAL VEIN, PT TOLERATED PROCEDURE WELL. WILL MONITOR PT CLOSELY. SAFETY AND ISOLATION PRECAUTIONS OBSERVED AT ALL TIMES. PT HAD LARGE BOWEL MOVEMENT WITH PARTIALLY DIGESTED FEEDING, YELLOW COLOR. PT HAD RSIDUAL OF 140 ML. FEEDING BEEN HELD SINCE MORNING. WILL RECHECK LATER.
--- NOTE | 2017-09-20 17:40 | NUR ---
RECEIVED PT TRACH ON MECHANICAL VENTILATOR ON SETTINGS PER MD ORDER. PT HAS NO SOB/RESP DISTRESS. AIRWAY PATENT AND SECURE. VENT ALARMS SET. PT BREATH SOUNDS BILATERAL RHONCHI. SUCTIONED WALKER/YELLOW THICK MODERATED AMOUNT OF SECRETIONS. WILL CONTINUE TO MONITOR PT. Addendum: 09/20/17 at 1740 by LAURA FONSECA RT Amended: Links added.
[2017-09-20] MEDS: ALBUMIN 25% 25 GM in PREMIX 1 EA IV PRN (17:44)
[2017-09-20] MEDS: CEFTRIAXONE 1 G in IV NS 0.9% 50 ML IV SCH (18:49)
--- NOTE | 2017-09-20 19:30 | NUR ---
rn note; PT IN BED RESTING COMFORTABLY. BREATHING EVENLY. TRACH IN PLACE AMBER IN PLACE. NO SOB. NAD. SKIN WARM, AND DRY. SR ON TELE MONITOR. NO S/S OF PAIN OR DISCOMFORT. RECTAL TUBE W/ NO OUTPUT. GT IN PLACE . HOB ELEVATED. BED LOW LOCKED, CALL LIGHT WITHIN REACH . WILL CONT TO MONITOR ,
--- NOTE | 2017-09-20 20:27 | NUR ---
PT RECEIVED TRACHED ON VENT. NO RESP DISTRESS NOTED. PT TOLERATING VENT SETTINGS. SX'D FOR SML AMT OF THICK PALE SECRETIONS. VENT ALARMS SET AND AUDIBLE. AMBU BAG AT [facility]. VENT PLUGGED INTO RED OUTLET. WILL CONTINUE TO MONITOR. Addendum: 09/20/17 at 2028 by CRISTOBAL VALLADARES RT Amended: Links added.
[2017-09-21] VITALS: BP 133/81
[2017-09-21 04:00] VITALS: BP 141/73
[2017-09-21] MEDS: HYDROCODONE/APAP 5/325MG 1 EACH TABLET PO PRN (06:10)
--- NOTE | 2017-09-21 06:10 | NUR ---
NORCO GIVEN ORDERED FOR PAIN EVIDENCE BY INCREASED HR. PT WAS ALSO TURNED TO A COMFORTABLE POSITION. WILL CONT TO MONITOR.
[2017-09-21 06:12] LABS: EOSINOPHILS # (AUTO) 0.8 /CMM (0.0-0.7); EOSINOPHILS % (AUTO) 5.9 % (0.0-6.0); HEMATOCRIT 23 % (33-45); HEMOGLOBIN 7.7 g/dL (11.5-14.8); LYMPHOCYTES # (AUTO) 0.4 /CMM (0.8-4.8); LYMPHOCYTES % (AUTO) 3.4 % (20.0-44.0); MEAN CORPUSCULAR HEMOGLOBIN 32 PG (26.0-33.0); MEAN CORPUSCULAR HGB CONC 34 g/dl (31.0-36.0); MEAN CORPUSCULAR VOLUME 93 fL (82-100); MONOCYTES % (AUTO) 0.3 % (2.0-12.0); NEUTROPHILS # (AUTO) 11.7 /CMM (1.8-8.9); NEUTROPHILS % (AUTO) 90.4 % (43.0-81.0); PLATELET COUNT (AUTO) 214 /CMM (150-450); RDW COEFFICIENT OF VARIATION 20.6 (11.5-15.0); RED BLOOD CELL COUNT(AUTO) 2.42 MIL/uL (4.0-5.2); WHITE BLOOD COUNT (AUTO) 12.9 K/uL (4.3-11.0)
[2017-09-21 06:34] LABS: CALCIUM, SERUM 6.8 mg/dL (8.5-10.1); CARBON DIOXIDE 23 mmol/L (21-32); CHLORIDE 110 mmol/L (98-107); CREATININE 2.4 mg/dL (0.6-1.3); GLUCOSE 123 mg/dL (74-106); MAGNESIUM 1.8 mg/dL (1.8-2.4); PHOSPHORUS 5.1 mg/dL (2.5-4.9); POTASSIUM 4.2 mmol/L (3.5-5.1); SODIUM SERUM 148 mmol/L (136-145)
--- NOTE | 2017-09-21 06:36 | NUR ---
RN NOTE; PT IN BED RESTING COMFORTABLY. VENT DEPENDENT. TRACH IN PLACE. BREATHING EVENLY. NO SOB. W/ ON AND OFF EPISODE OF HIGH HEART. PT WAS REPOSITIONED. NORCO GIVE FOR PAIN MANAGEMENT . ON ONGOING MONITORING . CLEANED AND DRIED. GOOD SKIN CARE RENDERED. BED LOW LOCKED. CALL LIGHT WITHIN REACH. WILL CONT TO MONITOR , AND WILL ENDORSE TO AM SHIFT FOR NICK.
[2017-09-21 06:44] LABS: UREA NITROGEN, BLOOD 82 mg/dL (7-18)
--- NOTE | 2017-09-21 07:16 | NUR ---
KNOWLEDGE ANALYST NOTES RECEIVED PT ON BED, SLEEPING , AFIB HR 145. ON MECH VENT SETTING SATURATING WELL. NO SIGN OF RESPIRATORY DISTRESS.ON NOVASOURCE 25CC/HR RESIDUAL OF 100CC, GT FEEDING STOPPED DUE TO RESIDUAL. IV ACCESS ON MACARIO MIDLINE RUNNING WELL. NO PAIN OR REDNESS. HEAD OF BED ELEVATED. SIDE RAILS UP. CALL LIGHT WITHIN REACH. WILL CONTINUE TO MONITOR PT CLOSELY.
--- NOTE | 2017-09-21 07:44 | NUR ---
ASSISTANT FINANCE DIRECTOR NOTES PT AFIB HR 130-140S. NOTIFIED DR ROWLAND.
[2017-09-21 08:00] VITALS: BP_SYST 100; BP_SYST 92; BP_DIAS 37; BP_DIAS 57
[2017-09-21] MEDS: HYDROGEL DRESSING 90 GM TUBE TP SCH (08:24)
[2017-09-21] MEDS: PANTOPRAZOLE 40 MG VIAL IV SCH (08:24)
[2017-09-21] MEDS: MUPIROCIN OINT 2% 22 GM TUBE SCH ×2 (08:27→20:42)
[2017-09-21] MEDS ORDERED: AMIODARONE 150 MG in IV D5W 100 ML IV ONE (08:30)
--- NOTE | 2017-09-21 09:20 | NUR ---
TD RN NOTES PT ON AMIODARONE DRIP. WILL MONITOR PT CLOSELY
[2017-09-21] MEDS: AMIODARONE 900 MG in IV D5W 482 ML IV PRN ×2 (09:31→15:40)
--- NOTE | 2017-09-21 10:15 | NUR ---
ARISTIDES RN NOTES PT CONVERTED TO SR AT 10 06 AM
--- NOTE | 2017-09-21 10:56 | NUR ---
TD RN NOTES PT CONVERTED TO SR WITH HR OF 80
--- NOTE | 2017-09-21 11:41 | NUR ---
TD RN NOTES PT IV FLUID D/C PER DOCTOR LIDYA ORDER.
[2017-09-21 12:00] VITALS: BP 107/51
--- NOTE | 2017-09-21 15:41 | NUR ---
ARISTIDES KIMBLE NOTES AMIODARONE DRIP DECREASED TO .5MG/ML BLOOD Addendum: 09/21/17 at 1542 by CRISTOBAL LOUISE RN BLOOD PRESSURE OF 121/58 HR OF 74
[2017-09-21 16:00] VITALS: BP 121/58
--- NOTE | 2017-09-21 18:58 | NUR ---
TD RN NOTES [facility]. PATIENT WAS AFIB DOCTOR NOTIFIED, DR ROWLAND ORDERED AMIODARONE DRIP PER PROTOCOL, CONVERTED AROUND 10 06 TO SR HR 72. PATIENT ON DIALYSIS, VITAL SIGNS ARE STABLE UPON ENDORSING TO THE PM NURSE. DUE MEDS GIVEN. HEAD OF BED ELEVATED. SIDE RAILS UP. WILL ENDORSED PT TO PM NURSE.
[2017-09-21] MEDS: ALBUMIN 25% 25 GM in PREMIX 1 EA IV PRN (19:24)
--- NOTE | 2017-09-21 19:30 | NUR ---
ANA MARIA RN INITIAL NOTES RECEIVED PATIENT OBTUNDED, NON-VERBAL, VENT DEPENDENT. NO S/S OF PAIN OR DISCOMFORT. NO RESPIRATORY DISTRESS NOTED. WITH VENT SETTINGS AC 12, TV 400, FIO2 40%, PEEP 5, SPO2 100%. HD NURSE AT BEDSIDE, WITH HD ONGOING. WITH GTF AT 25ML/HR. GT PATENT AND INTACT, IN PLACE. WITH MACARIO MIDLINE PATENT AND INTACT WITH AMIODARONE AT 0.5MG/MIN. PATIENT SR 74. WITH RIGHT FEMORAL TLC, PATENT AND INTACT. HOB ELEVATED. SIDE RAILS UP AND LOCKED. BED KEPT AT LOWEST POSITION. ISOLATION PRECAUTIONS OBSERVED. WILL CONTINUE TO MONITOR.
--- NOTE | 2017-09-21 19:38 | NUR ---
DIALYSIS COMPLETED. TOLERATED WELL. VS 132/61, 97.4, 74. WITH 1L OUT. WILL CONTINUE TO MONITOR.
[2017-09-21 20:00] VITALS: BP 98/44
[2017-09-21] MEDS: CEFTRIAXONE 1 G in IV NS 0.9% 50 ML IV SCH ×2 (20:42→20:50)
[2017-09-21] MEDS: RENAL NOVASOURCE 1,000 ML BOTTLE GT PRN (21:02)
--- NOTE | 2017-09-21 22:19 | NUR ---
PT RECEIVED TRACHED ON VENT. NO RESP DISTRESS NOTED. PT TOLERATING VENT SETTINGS. SX'D FOR SML AMT OF THICK PALE SECRETIONS. VENT ALARMS SET AND AUDIBLE. AMBU BAG AT [facility]. VENT PLUGGED INTO RED OUTLET. WILL CONTINUE TO MONITOR. Addendum: 09/21/17 at 2219 by CRISTOBAL VALLADARES RT Amended: Links added.
--- NOTE | 2017-09-21 23:26 | NUR ---
ANA MARIA RN NOTES PATIENT IN STABLE CONDITION. CONTINUITY OF CARE ENDORSED TO
[2017-09-22] VITALS (7 sets, daily range): BP systolic 121–146; BP diastolic 51–67
[2017-09-22 06:43] LABS: BASOPHILS % (AUTO) 0.1 % (0.0-2.0); EOSINOPHILS # (AUTO) 0.8 /CMM (0.0-0.7); EOSINOPHILS % (AUTO) 4.8 % (0.0-6.0); HEMATOCRIT 26 % (33-45); HEMOGLOBIN 8.6 g/dL (11.5-14.8); LYMPHOCYTES # (AUTO) 1.3 /CMM (0.8-4.8); LYMPHOCYTES % (AUTO) 7.9 % (20.0-44.0); MEAN CORPUSCULAR HEMOGLOBIN 32 PG (26.0-33.0); MEAN CORPUSCULAR HGB CONC 34 g/dl (31.0-36.0); MEAN CORPUSCULAR VOLUME 94 fL (82-100); MONOCYTES # (AUTO) 0.3 /CMM (0.1-1.30); MONOCYTES % (AUTO) 1.5 % (2.0-12.0); NEUTROPHILS # (AUTO) 14.4 /CMM (1.8-8.9); NEUTROPHILS % (AUTO) 85.7 % (43.0-81.0); PLATELET COUNT (AUTO) 192 /CMM (150-450); RDW COEFFICIENT OF VARIATION 20.6 (11.5-15.0); WHITE BLOOD COUNT (AUTO) 16.9 K/uL (4.3-11.0)
[2017-09-22 06:53] LABS: ALANINE AMINOTRANSFERASE 35 U/L (12-78); ALBUMIN 2.2 g/dL (3.4-5.0); ALKALINE PHOSPHATASE 305 U/L (46-116); ASPARTATE AMINOTRANSFERASE 23 U/L (15-37); BILIRUBIN,TOTAL 0.7 mg/dL (0.2-1.0); CALCIUM, SERUM 7.7 mg/dL (8.5-10.1); CARBON DIOXIDE 29 mmol/L (21-32); CHLORIDE 111 mmol/L (98-107); CREATININE 1.9 mg/dL (0.6-1.3); GLUCOSE 118 mg/dL (74-106); MAGNESIUM 1.7 mg/dL (1.8-2.4); POTASSIUM 4.3 mmol/L (3.5-5.1); SODIUM SERUM 149 mmol/L (136-145); TOTAL PROTEIN, SERUM 6.3 g/dL (6.4-8.2); UREA NITROGEN, BLOOD 56 mg/dL (7-18)
[2017-09-22 07:16] LABS: EOSINOPHILS % (MANUAL) 4 % (0-4); LYMPHOCYTES % (MANUAL) 5 % (16-48); MONOCYTES % (MANUAL) 7 % (0-11.0); NEUTROPHILS % (MANUAL) 84 (42-76)
--- NOTE | 2017-09-22 07:30 | NUR ---
ANA MARIA RN AM NOTES RECEIVED PATIENT OBTUNDED, NON-VERBAL, SHILEY 6 TRACH TO VENT, SETTING- VENT SETTINGS AC 12, TV 450, FIO2 40%, PEEP 5, SPO2 100%. NOT IN ANY IN ANY DISTRESS, RESPIRATION UNLABORED, EQUAL. TELEMETRY READS SR HR 78, NO SIGNS OF PAIN, WITH MACARIO MIDLINE PATENT AND INTACT WITH AMIODARONE AT 0.5MG/MIN INFUSING. TO CONSUME THEN PO. RIGHT FEMORAL TLC, PATENT AND INTACT. WITH GTF AT 25ML/HR. O RESIDUAL. HOB ELEVATED. SIDE RAILS UP AND LOCKED. BED KEPT AT LOWEST POSITION. ISOLATION PRECAUTIONS OBSERVED. WILL CONTINUE TO MONITOR.
--- NOTE | 2017-09-22 09:30 | NUR ---
ANA MARIA NOTES DUE MEDS GIVEN
[2017-09-22] MEDS: PANTOPRAZOLE 40 MG VIAL IV SCH (09:54)
[2017-09-22] MEDS: HYDROGEL DRESSING 90 GM TUBE TP SCH (09:54)
[2017-09-22] MEDS: MUPIROCIN OINT 2% 22 GM TUBE SCH ×2 (09:55→20:24)
[2017-09-22 11:12] LABS: *SPE A/G RATIO 0.8 (0.7-1.7); *SPE ALBUMIN 2.5 g/dL (2.9-4.4); *SPE ALPHA-1-GLOBULIN 0.4 g/dL (0.0-0.4); *SPE ALPHA-2-GLOBULIN 0.6 g/dL (0.4-1.0); *SPE BETA GLOBULIN 0.6 g/dL (0.7-1.3); *SPE GLOBULIN, TOTAL 3.3 g/dL (2.2-3.9); *SPE M-SPIKE Not Observed g/dL (Not Observed); *SPEGAMMA GLOBULIN 1.7 g/dL (0.4-1.8)
[2017-09-22] MEDS: RENAL NOVASOURCE 1,000 ML BOTTLE GT PRN (14:59)
[2017-09-22] MEDS: CEFTRIAXONE 1 G in IV NS 0.9% 50 ML IV SCH (17:07)
--- NOTE | 2017-09-22 18:06 | NUR ---
RT END OF THE SHIFT REPORT PT. 86 Y OLD FEMALE REMAIN TRACH'D SHILEY # 6 AND ON VENT WITH NOTED SETTINGS, ALARMS ARE SET AND FUNCTIONAL. NO DISTRESS NOTED T/O SHIFT. B/S BILATERALLY RHONCHI. EQUAL CHEST RISE NOTED. SUX'D FOR MINIMUM AMT. YELLOWISH SECRETIONS, NO CHANGES AND CONTINUE FOR MONITOR AND CARE FOR PT. AMBU BAG REMAIN AT THE BEDSIDE. VENT PLUGGED INTO RED OUTLET. HME CHANGED, REPORT WILL PASS TO PM SHIFT. Addendum: 09/22/17 at 1810 by RUFINA BASHIR RT Amended: Links added.
--- NOTE | 2017-09-22 18:25 | NUR ---
WATER TAXI BOAT MATE CLOSING NOTES PATIENT OBTUNDED, NON-VERBAL, SHILEY 6 TRACH TO VENT, SETTING- VENT SETTINGS AC 12, TV 450, FIO2 40%, PEEP 5, SPO2 100%. NOT IN ANY IN ANY DISTRESS, RESPIRATION UNLABORED, EQUAL. TELEMETRY READS SR HR 89, NO SIGNS OF PAIN, WITH MACARIO MIDLINE PATENT AND INTACT. RIGHT FEMORAL TLC, PATENT AND INTACT. WITH GTF AT 25ML/HR. O RESIDUAL. HOB ELEVATED. SIDE RAILS UP AND LOCKED. BED KEPT AT LOWEST POSITION. ISOLATION PRECAUTIONS OBSERVED. MADE COMFORTABLE. PRESCRIBED WOUND TREATMENT AND PM CARE DONE. TURNED AND REPOSITIONED Q 2HOURS. NO OTHER SIGNIFICANT CHANGE IN CONDITION. ALL NEEDS MET. WILL ENDORSE TO NEXT SHIFT FOR NICK. PER DR. GALLEGOS [CARDIO ] WILL HOLD AMIODARONE FOR NOW.
[2017-09-22] MEDS: FLUCONAZOLE (100 MG) 100 MG TABLET PO SCH (19:52)
[2017-09-22] MEDS ORDERED: VANCOMYCIN 0.75 GM in IV D5W 250 ML IV SCH (20:00)
[2017-09-22] MEDS ORDERED: VANCOMYCIN 1 GM in IV D5W 250 ML IV ONE (20:00)
--- NOTE | 2017-09-22 20:00 | NUR ---
RN NOTES PATIENT SEEN AND EXAMINED BY DR ROMERO, WITH NEW ORDER FOR AMIODARONE 400MG VIA GT TID, 1ST DOSE TO START TONIGHT. ORDER READ BACK FOR CLARIFICATION. PHARMACY CALLED, SPOKE TO [facility] REGARDING NEW ORDER, MEDICATION WILL BE VERIFIED SHORTLY
[2017-09-22] MEDS: AMIODARONE HCL 200 MG TABLET GT SCH (20:23)
[2017-09-22] MEDS: CEFEPIME 1 GM in IV NS 0.9% 50 ML IV SCH (22:52)
[2017-09-23] VITALS: BP 137/63
[2017-09-23 04:00] VITALS: BP_SYST 124; BP_SYST 137; BP_DIAS 64
[2017-09-23] MEDS ORDERED: VANCOMYCIN 500 MG in IV D5W 100 ML IV PRN (06:00)
[2017-09-23 06:50] LABS: EOSINOPHILS # (AUTO) 0.8 /CMM (0.0-0.7); EOSINOPHILS % (AUTO) 3.3 % (0.0-6.0); HEMATOCRIT 25 % (33-45); HEMOGLOBIN 8.3 g/dL (11.5-14.8); LYMPHOCYTES # (AUTO) 1.6 /CMM (0.8-4.8); LYMPHOCYTES % (AUTO) 6.4 % (20.0-44.0); MEAN CORPUSCULAR HEMOGLOBIN 32 PG (26.0-33.0); MEAN CORPUSCULAR HGB CONC 34 g/dl (31.0-36.0); MEAN CORPUSCULAR VOLUME 94 fL (82-100); MONOCYTES # (AUTO) 0.3 /CMM (0.1-1.30); MONOCYTES % (AUTO) 1.2 % (2.0-12.0); NEUTROPHILS # (AUTO) 22.2 /CMM (1.8-8.9); NEUTROPHILS % (AUTO) 89.1 % (43.0-81.0); PLATELET COUNT (AUTO) 180 /CMM (150-450); RDW COEFFICIENT OF VARIATION 20.6 (11.5-15.0); WHITE BLOOD COUNT (AUTO) 24.9 K/uL (4.3-11.0)
[2017-09-23 07:30] LABS: CALCIUM, SERUM 7.5 mg/dL (8.5-10.1); CARBON DIOXIDE 27 mmol/L (21-32); CHLORIDE 106 mmol/L (98-107); CREATININE 2.1 mg/dL (0.6-1.3); GLUCOSE 112 mg/dL (74-106); MAGNESIUM 1.8 mg/dL (1.8-2.4); POTASSIUM 4.1 mmol/L (3.5-5.1); SODIUM SERUM 145 mmol/L (136-145); UREA NITROGEN, BLOOD 60 mg/dL (7-18)
--- NOTE | 2017-09-23 07:30 | NUR ---
SPRAY UNIT FEEDER AM NOTES RECEIVED PATIENT OBTUNDED, NON-VERBAL, SHILEY 6 TRACH TO VENT, SETTING- VENT SETTINGS AC 12, TV 450, FIO2 40%, PEEP 5, SPO2 100%. NOT IN ANY IN ANY DISTRESS, RESPIRATION UNLABORED, EQUAL. TELEMETRY READS SR HR 78, NO SIGNS OF PAIN, WITH MACARIO MIDLINE PATENT. SITE CLEAR. RIGHT FEMORAL TLC, PATENT AND INTACT. WITH GTF AT 25ML/HR. O RESIDUAL. HOB ELEVATED. SIDE RAILS UP AND LOCKED. BED KEPT AT LOWEST POSITION. ISOLATION PRECAUTIONS OBSERVED. WILL CONTINUE TO MONITOR.
--- NOTE | 2017-09-23 07:37 | NUR ---
PT RECEIVED TRACHED ON MECHANICAL VENT W/ SETTINGS PER MD. VENT IN RED OUTLET, VENT ALARMS CHECKED AND AUDIBLE. PT SX'ED AND LAVAGED PRN TO MOD AMOUNTS OF THICK PALE YELLOW SECRETIONS. TRACH TUBE SECURED, PATENT, CLEAN AND DRY. BREATH SOUNDS EQUAL, DIMINISHED. PLAN IS TO CONTINUE CURRENT CARE UNDER MD ORDERS AND MONITOR FOR CHANGES IN STATUS. Addendum: 09/23/17 at 0739 by ARACELI MANN RT Amended: Links added.
[2017-09-23 08:00] VITALS: BP_SYST 142; BP_DIAS 54; BP_DIAS 57
[2017-09-23] MEDS: PANTOPRAZOLE 40 MG VIAL IV SCH (08:43)
[2017-09-23] MEDS: HYDROGEL DRESSING 90 GM TUBE TP SCH (08:46)
[2017-09-23] MEDS: AMIODARONE HCL 200 MG TABLET GT SCH ×3 (08:49→16:47)
[2017-09-23] MEDS: FLUCONAZOLE (100 MG) 100 MG TABLET PO SCH (08:49)
[2017-09-23] MEDS: MUPIROCIN OINT 2% 22 GM TUBE SCH ×2 (08:55→21:14)
[2017-09-23] MEDS: CEFEPIME 1 GM in IV NS 0.9% 50 ML IV SCH (09:06)
--- NOTE | 2017-09-23 09:30 | NUR ---
ANA MARIA NOTES MAXIPIME IV GIVEN EARLIER. DUE MEDS GIVEN
[2017-09-23 10:12] LABS: EOSINOPHILS % (MANUAL) 5 % (0-4); LYMPHOCYTES % (MANUAL) 5 % (16-48); NEUTROPHILS % (MANUAL) 90 (42-76)
[2017-09-23 12:00] VITALS: BP 132/50
[2017-09-23 14:17] LABS: PTH, INTACT 267 pg/mL (15-65)
[2017-09-23] MEDS ORDERED: FEE PK DOSING 1 MIN EA MC ONE (14:50)
[2017-09-23 16:00] VITALS: BP 106/52
--- NOTE | 2017-09-23 16:45 | NUR ---
SCIENCE LIAISON NOTES ONGOING HD.
[2017-09-23] MEDS: ALBUMIN 25% 25 GM in PREMIX 1 EA IV PRN (17:39)
[2017-09-23] MEDS ORDERED: VANCOMYCIN 1 GM in IV D5W 250 ML IV ONE (18:00)
--- NOTE | 2017-09-23 19:05 | NUR ---
SURGICAL AIDES TEACHER NOTES HD COMPLETED. NO FLUID REMOVED.
[2017-09-23 20:00] VITALS: BP 125/53
--- NOTE | 2017-09-23 20:36 | NUR ---
PT RECEIVED TRACHED ON VENT. NO RESP DISTRESS NOTED. PT TOLERATING VENT SETTINGS. SX'D FOR MOD AMT OF THICK YELLOW SECRETIONS. VENT ALARMS SET AND AUDIBLE. AMBU BAG AT BEDSIDE. VENT PLUGGED INTO RED OUTLET. WILL CONTINUE TO MONITOR. Addendum: 09/23/17 at 2037 by CRISTOBAL VALLADARES RT Amended: Links added.
[2017-09-23] MEDS: MEROPENEM 500 MG in IV NS 0.9% 50 ML IV SCH (21:13)
[2017-09-24] VITALS: BP 102/49
--- NOTE | 2017-09-24 | NUR ---
RN NOTES INSERTED CONTEH CATHETER PER MD ORDER 16 ROMANIAN. USED STERILE TECHNIQUE. WITH URINE OUTFLOW. URINE AMOUNT NOT ENOUGH AT THIS TIME TO COLLECT URINE CULTURE.
[2017-09-24 04:00] VITALS: BP 135/55
[2017-09-24] MEDS ORDERED: VANCOMYCIN 500 MG in IV D5W 100 ML IV PRN (06:00)
[2017-09-24 07:05] LABS: BASOPHILS % (AUTO) 0.1 % (0.0-2.0); HEMATOCRIT 24 % (33-45); HEMOGLOBIN 7.8 g/dL (11.5-14.8); LYMPHOCYTES # (AUTO) 1.7 /CMM (0.8-4.8); LYMPHOCYTES % (AUTO) 5.2 % (20.0-44.0); MEAN CORPUSCULAR HEMOGLOBIN 31 PG (26.0-33.0); MEAN CORPUSCULAR HGB CONC 33 g/dl (31.0-36.0); MEAN CORPUSCULAR VOLUME 95 fL (82-100); MONOCYTES # (AUTO) 0.7 /CMM (0.1-1.30); MONOCYTES % (AUTO) 2.1 % (2.0-12.0); NEUTROPHILS # (AUTO) 29.7 /CMM (1.8-8.9); NEUTROPHILS % (AUTO) 92.6 % (43.0-81.0); PLATELET COUNT (AUTO) 139 /CMM (150-450); RDW COEFFICIENT OF VARIATION 20.3 (11.5-15.0); RED BLOOD CELL COUNT(AUTO) 2.47 MIL/uL (4.0-5.2)
[2017-09-24 07:14] LABS: WHITE BLOOD COUNT (AUTO) 32.1 K/uL (4.3-11.0)
[2017-09-24 07:28] LABS: CALCIUM, SERUM 7.6 mg/dL (8.5-10.1); CARBON DIOXIDE 28 mmol/L (21-32); CHLORIDE 108 mmol/L (98-107); CREATININE 1.7 mg/dL (0.6-1.3); GLUCOSE 95 mg/dL (74-106); MAGNESIUM 1.7 mg/dL (1.8-2.4); PHOSPHORUS 3.1 mg/dL (2.5-4.9); POTASSIUM 4.1 mmol/L (3.5-5.1); SODIUM SERUM 147 mmol/L (136-145); UREA NITROGEN, BLOOD 49 mg/dL (7-18)
--- NOTE | 2017-09-24 07:30 | NUR ---
PAPER SLITTER AM NOTES RECEIVED PATIENT OBTUNDED, NON-VERBAL, SHILEY 6 TRACH TO VENT, SETTING- VENT SETTINGS AC 12, TV 450, FIO2 40%, PEEP 5, SPO2 100%. NOT IN ANY IN ANY DISTRESS, RESPIRATION UNLABORED, EQUAL. TELEMETRY READS SR HR 66, NO SIGNS OF PAIN, WITH MACARIO MIDLINE PATENT. SITE CLEAR. RIGHT FEMORAL TLC, PATENT AND INTACT. WITH GTF AT 25ML/HR. O RESIDUAL. HOB ELEVATED. SIDE RAILS UP AND LOCKED. BED KEPT AT LOWEST POSITION. ISOLATION PRECAUTIONS OBSERVED. WILL CONTINUE TO MONITOR.
--- NOTE | 2017-09-24 07:45 | NUR ---
PLUMBER HELPER NOTES WBC COUNT 32.[address] ROWLAND
[2017-09-24 08:00] VITALS: BP 129/53
[2017-09-24] MEDS: MEROPENEM 500 MG in IV NS 0.9% 50 ML IV SCH ×2 (08:30→20:32)
[2017-09-24 09:13] LABS: EOSINOPHILS % (MANUAL) 1 % (0-4); LYMPHOCYTES % (MANUAL) 7 % (16-48); MONOCYTES % (MANUAL) 7 % (0-11.0); NEUTROPHILS % (MANUAL) 85 (42-76)
[2017-09-24] MEDS: FLUCONAZOLE (100 MG) 100 MG TABLET PO SCH (09:19)
[2017-09-24] MEDS: PANTOPRAZOLE 40 MG VIAL IV SCH (09:19)
[2017-09-24] MEDS: AMIODARONE HCL 200 MG TABLET GT SCH ×3 (09:20→17:05)
[2017-09-24] MEDS: HYDROGEL DRESSING 90 GM TUBE TP SCH (09:20)
[2017-09-24] MEDS: MUPIROCIN OINT 2% 22 GM TUBE SCH ×2 (09:21→20:33)
--- NOTE | 2017-09-24 09:30 | NUR ---
LARD TUB WASHER NOTES DUE MEDS GIVEN. MEEREM IV STARTED AT 0815.
--- NOTE | 2017-09-24 11:58 | NUR ---
LEARNING CENTER INSTRUCTOR NOTES CONTEH CATH REMOVED PER DR. Amauri PURCELL. 3 ML OUTPUT.
[2017-09-24 12:00] VITALS: BP_SYST 116; BP_SYST 129; BP_DIAS 46; BP_DIAS 47
[2017-09-24] MEDS ORDERED: Magnesium 1GM/D5W 100ML PREMIX 100 ML IV SCH (12:00)
--- NOTE | 2017-09-24 13:11 | NUR ---
WAGON WINDER NOTES MAGNESIUM BAG #1 STARTED
[2017-09-24 16:00] VITALS: BP 120/59
--- NOTE | 2017-09-24 16:04 | NUR ---
PT RECEIVED TRACH ON MECHANICAL VENTILATOR ON SETTINGS NOTED PER MD ORDER. SUCTIONED LARGE AMOUNT OF WALKER/YELLOW THICK SECRETIONS. BREATH SOUNDS BILATERAL COARSE. PT AIRWAY PATENT AND SECURE. VENT ALARMS SET AND AUDIBLE. SPARE TRACH AT BEDSIDE, AMBU BAG AT BEDSIDE. WILL CONTINUE TO MONITOR PT.
--- NOTE | 2017-09-24 18:24 | NUR ---
SUPERVISOR HIDE HOUSE CLOSING NOTES PATIENT OBTUNDED, NON-VERBAL, SHILEY 6 TRACH TO VENT, SETTING- VENT SETTINGS AC 12, TV 450, FIO2 40%, PEEP 5, SPO2 100%. NOT IN ANY IN ANY DISTRESS, RESPIRATION UNLABORED, EQUAL. TELEMETRY READS SR HR 89, NO SIGNS OF PAIN, WITH MACARIO MIDLINE PATENT AND INTACT. RIGHT FEMORAL TLC, PATENT AND INTACT. WITH GTF AT 25ML/HR. O RESIDUAL. HOB ELEVATED. SIDE RAILS UP AND LOCKED. BED KEPT AT LOWEST POSITION. ISOLATION PRECAUTIONS OBSERVED. MADE COMFORTABLE. PRESCRIBED WOUND TREATMENT AND PM CARE DONE. TURNED AND REPOSITIONED Q 2HOURS. NO OTHER SIGNIFICANT CHANGE IN CONDITION. ALL NEEDS MET. WILL ENDORSE TO NEXT SHIFT FOR NICK.
[2017-09-24] MEDS ORDERED: LEVOFLOXACIN (250MG) 250 MG TABLET PO SCH (19:30)
[2017-09-24 20:00] VITALS: BP 127/55
[2017-09-24] MEDS: HYDROCODONE/APAP 5/325MG 1 EACH TABLET PO PRN (20:33)
[2017-09-24] MEDS: RENAL NOVASOURCE 1,000 ML BOTTLE GT PRN (20:38)
[2017-09-25] VITALS: BP 133/64
[2017-09-25 04:00] VITALS: BP 106/45
[2017-09-25] MEDS: HYDROCODONE/APAP 5/325MG 1 EACH TABLET PO PRN (05:05)
--- NOTE | 2017-09-25 05:45 | NUR ---
RT Pt trach on [facility] vent on ordered settings. No resp distress during the night. sx prn. Addendum: 09/25/17 at 0546 by MAR JIMENEZ RT Amended: Links added.
[2017-09-25 06:32] LABS: EOSINOPHILS # (AUTO) 0.8 /CMM (0.0-0.7); EOSINOPHILS % (AUTO) 2.8 % (0.0-6.0); HEMATOCRIT 23 % (33-45); HEMOGLOBIN 7.7 g/dL (11.5-14.8); LYMPHOCYTES # (AUTO) 0.7 /CMM (0.8-4.8); LYMPHOCYTES % (AUTO) 2.6 % (20.0-44.0); MEAN CORPUSCULAR HEMOGLOBIN 32 PG (26.0-33.0); MEAN CORPUSCULAR HGB CONC 34 g/dl (31.0-36.0); MEAN CORPUSCULAR VOLUME 94 fL (82-100); MONOCYTES # (AUTO) 0.8 /CMM (0.1-1.30); NEUTROPHILS # (AUTO) 24.9 /CMM (1.8-8.9); NEUTROPHILS % (AUTO) 91.6 % (43.0-81.0); PLATELET COUNT (AUTO) 155 /CMM (150-450); RDW COEFFICIENT OF VARIATION 20.3 (11.5-15.0); RED BLOOD CELL COUNT(AUTO) 2.44 MIL/uL (4.0-5.2); WHITE BLOOD COUNT (AUTO) 27.1 K/uL (4.3-11.0)
[2017-09-25 06:49] LABS: CALCIUM, SERUM 7.6 mg/dL (8.5-10.1); CARBON DIOXIDE 28 mmol/L (21-32); CHLORIDE 109 mmol/L (98-107); CREATININE 1.9 mg/dL (0.6-1.3); GLUCOSE 109 mg/dL (74-106); MAGNESIUM 1.9 mg/dL (1.8-2.4); PHOSPHORUS 3.5 mg/dL (2.5-4.9); POTASSIUM 3.8 mmol/L (3.5-5.1); SODIUM SERUM 147 mmol/L (136-145); UREA NITROGEN, BLOOD 57 mg/dL (7-18)
--- NOTE | 2017-09-25 07:05 | NUR ---
RN NOTES PT IS RESTING COMFORTABLY IN BED WITH NO SIGNS OF DISTRESS NOTED. PT CONNECTED TO VENT, ALL SETTINGS ARE ACCURATE. PT CONNECTED TO GT FEEDING, RUNNING AT 25ML/HR. MACARIO MIDLINE INTACT AND SL. SAFETY MEASURES ARE IN PLACE, CALL LIGHT IS IN REACH. WILL CONTINUE TO MONITOR.
[2017-09-25 08:00] VITALS: BP 112/36
[2017-09-25] MEDS: FLUCONAZOLE (100 MG) 100 MG TABLET PO SCH (08:56)
[2017-09-25] MEDS: PANTOPRAZOLE 40 MG VIAL IV SCH (08:56)
[2017-09-25] MEDS: AMIODARONE HCL 200 MG TABLET GT SCH ×3 (09:00→17:00)
[2017-09-25] MEDS: MEROPENEM 500 MG in IV NS 0.9% 50 ML IV SCH ×2 (09:01→20:50)
[2017-09-25] MEDS: MUPIROCIN OINT 2% 22 GM TUBE SCH ×2 (09:02→20:51)
[2017-09-25] MEDS: HYDROGEL DRESSING 90 GM TUBE TP SCH (09:02)
[2017-09-25 09:57] LABS: BAND % (MANUAL) 3 % (0.0-5.0); EOSINOPHILS % (MANUAL) 2 % (0-4); LYMPHOCYTES % (MANUAL) 2 % (16-48); MONOCYTES % (MANUAL) 2 % (0-11.0); NEUTROPHILS % (MANUAL) 91 (42-76)
[2017-09-25 12:00] VITALS: BP 103/43
[2017-09-25 16:00] VITALS: BP 103/53
--- NOTE | 2017-09-25 18:31 | NUR ---
RN NOTES PT IS LAYING DOWN IN BED, OBTUNDED. PT CONNECTED TO VENT, AC: 12, TV: 400, FIO2: 40%, PEEP 5. O2 SAT 100%, NO SIGNS OF DISTRESS NOTED. MACARIO MIDLINE IS INTACT AND SL. TELE MONITOR SHOWS SINUS RHYTHM. HD DONE TODAY WITH NO OUTPUT AND HD CATH REMOVED, PER MD ORDER. G TUBE INTACT AND RUNNING NOVASOURCE @ 25ML/HR. WOUND CARE PROVIDED, PT KEPT CLEAN AND DRY. SAFETY MEASURES ARE IN PLACE, CALL LIGHT IS IN REACH. WILL ENDORSE TO ADVERTISING SPACE CLERK RN FOR CONTINUITY OF CARE.
--- NOTE | 2017-09-25 19:29 | NUR ---
PT RCVD ON VENT WITH NOTED SETTINGS. VENTS PLUGGED INTO RED OUTLET, VENT ALARM WORKING AND AUDIBLE. SUCTIONED MODERATE AMOUNT OF YELLOW THICK SECRETIONS . BILATERAL BS NOTED, NO RESPIRATORY DISTRESS NOTED AT THIS TIME. WILL CONTINUE TO MONITOR THE PT.
[2017-09-25 20:00] VITALS: BP 100/58
--- NOTE | 2017-09-25 20:08 | NUR ---
RN INITIAL NOTES RECEIVED PT IN BED, OBTUNDED. PT CONNECTED TO VENT, AC: 12, TV: 400, FIO2: 40%, PEEP 5. O2 SAT 100%, NO SIGNS OF DISTRESS NOTED. MACARIO MIDLINE IS INTACT AND SL. G TUBE INTACT AND RUNNING NOVASOURCE @ 25ML/HR. SAFETY MEASURES ARE IN PLACE, CALL LIGHT IS IN REACH. BED IN THE LOWEST LOCKED POSITION. I WILL CONTINUE TO MONITOR.
[2017-09-26] VITALS: BP 110/71
[2017-09-26 04:00] VITALS: BP 123/51
--- NOTE | 2017-09-26 06:04 | NUR ---
RN CLOSING NOTES NO CHANGE IN PT CONDITION OVER SHIFT, PT IN BED OBTUNDED. PT CONNECTED TO VENT, AC: 12, TV: 400, FIO2: 40%, PEEP 5. O2 SAT 100%, NO SIGNS OF DISTRESS NOTED. MACARIO MIDLINE IS INTACT AND SL. G TUBE INTACT AND RUNNING NOVASOURCE @ 25ML/HR. SAFETY MEASURES ARE IN PLACE, CALL LIGHT IS IN REACH. BED IN THE LOWEST LOCKED POSITION. I WILL ENDORSE TO AM RN.
[2017-09-26 06:46] LABS: CALCIUM, SERUM 7.5 mg/dL (8.5-10.1); CARBON DIOXIDE 28 mmol/L (21-32); CHLORIDE 107 mmol/L (98-107); CREATININE 1.7 mg/dL (0.6-1.3); GLUCOSE 97 mg/dL (74-106); POTASSIUM 4.1 mmol/L (3.5-5.1); SODIUM SERUM 143 mmol/L (136-145); UREA NITROGEN, BLOOD 45 mg/dL (7-18)
--- NOTE | 2017-09-26 07:51 | NUR ---
ACADEMIC COACH NOTES RECEIVED PT ON BED SLEEPING. OBTUNDED. ON TELE MONITOR SR 76. ON [facility] VENT SETTING SATURATING WELL. IV ACCESS ON MACARIO MIDLINE HL. HEAD OF BED ELEVATED. SIDE RAILS UP. CALL LIGHT WITHIN REACH. WILL CONTINUE TO MONITOR PT CLOSELY.
[2017-09-26 08:00] VITALS: BP 117/68
[2017-09-26] MEDS: PANTOPRAZOLE 40 MG VIAL IV SCH (08:07)
[2017-09-26] MEDS: MEROPENEM 500 MG in IV NS 0.9% 50 ML IV SCH ×2 (08:07→21:21)
[2017-09-26] MEDS: FLUCONAZOLE (100 MG) 100 MG TABLET PO SCH (08:09)
[2017-09-26] MEDS: AMIODARONE HCL 200 MG TABLET GT SCH ×3 (08:09→16:29)
[2017-09-26] MEDS: HYDROGEL DRESSING 90 GM TUBE TP SCH (08:10)
[2017-09-26] MEDS: MUPIROCIN OINT 2% 22 GM TUBE SCH ×2 (08:10→21:22)
[2017-09-26 12:00] VITALS: BP 122/86
[2017-09-26 16:00] VITALS: BP 138/53
--- NOTE | 2017-09-26 19:19 | NUR ---
STATION SUPERINTENDENT NOTES NO ACUTE CHANGES NOTED DURING THE SHIFT. DUE MEDS GIVEN. PROVIDED COMFORT AND SAFETY. ENDORSED TO THE PM NURSE FOR NICK.
--- NOTE | 2017-09-26 19:26 | NUR ---
RCVD PT ON VENT WITH NOTED SETTINGS. VENTS PLUGGED INTO RED OUTLET, VENT ALARM WORKING AND AUDIBLE. SUCTIONED MODERATE AMOUNT OF YELLOW THICK SECRETIONS . BILATERAL BS NOTED, NO RESPIRATORY DISTRESS NOTED AT THIS TIME. WILL CONTINUE TO MONITOR THE PT.
[2017-09-26 20:00] VITALS: BP 136/69
[2017-09-27] VITALS: BP 146/73
[2017-09-27 04:00] VITALS: BP 125/53
[2017-09-27] MEDS: RENAL NOVASOURCE 1,000 ML BOTTLE GT PRN (04:08)
[2017-09-27 06:45] LABS: CALCIUM, SERUM 7.8 mg/dL (8.5-10.1); CARBON DIOXIDE 26 mmol/L (21-32); CHLORIDE 104 mmol/L (98-107); GLUCOSE 120 mg/dL (74-106); POTASSIUM 4.3 mmol/L (3.5-5.1); SODIUM SERUM 141 mmol/L (136-145); UREA NITROGEN, BLOOD 54 mg/dL (7-18)
[2017-09-27 08:00] VITALS: BP 141/45
[2017-09-27] MEDS: MEROPENEM 500 MG in IV NS 0.9% 50 ML IV SCH ×2 (08:14→20:55)
[2017-09-27] MEDS: AMIODARONE HCL 200 MG TABLET GT SCH ×3 (08:14→16:18)
[2017-09-27] MEDS: PANTOPRAZOLE 40 MG VIAL IV SCH (08:14)
[2017-09-27] MEDS: FLUCONAZOLE (100 MG) 100 MG TABLET PO SCH (08:14)
[2017-09-27] MEDS: HYDROGEL DRESSING 90 GM TUBE TP SCH (08:16)
[2017-09-27] MEDS: MUPIROCIN OINT 2% 22 GM TUBE SCH ×2 (08:16→20:57)
[2017-09-27 12:00] VITALS: BP 125/48
[2017-09-27 16:00] VITALS: BP 129/63
[2017-09-27] MEDS ORDERED: LACTOBACILLUS RHAMNOSUS GG 1 EACH CAP.SPRINK PO SCH (17:00)
[2017-09-27] MEDS ORDERED: RENAL NOVASOURCE 1,000 ML BOTTLE GT PRN (18:00)
--- NOTE | 2017-09-27 18:13 | NUR ---
RT END OF THE SHIFT REPORT PT. 86 Y OLD FEMALE REMAIN TRACH'D SHILEY # 6 AND ON VENT WITH NOTED SETTINGS, ALARMS ARE SET AND FUNCTIONAL. NO DISTRESS NOTED T/O SHIFT. B/S BILATERALLY RHONCHI. EQUAL CHEST RISE NOTED. SUX'D FOR MINIMUM AMT. YELLOWISH SECRETIONS, NO CHANGES AND CONTINUE FOR MONITOR AND CARE FOR PT. AMBU BAG REMAIN AT THE BEDSIDE. VENT PLUGGED INTO RED OUTLET. HME CHANGED, REPORT WILL PASS TO PM SHIFT. Addendum: 09/27/17 at 1813 by RUFINA BASHIR RT Amended: Links added.
--- NOTE | 2017-09-27 18:20 | NUR ---
RN NOTE PT REMAINED STABLE THOUGH SHIFT, PT HAD 1 BM, LIQUID, YELLOW/GREEN COLOR. PT HAD RESIDUALS AT 1600 180ML, AND AT 1820 = 250ML WITH THE FEEDING ON HOLD. SAFETY MEASURES IMPLEMENTED. WILL ENDORSE TO HARD CANDY BATCH MIXER NURSE.
[2017-09-27 20:00] VITALS: BP 128/64
--- NOTE | 2017-09-27 20:00 | NUR ---
RN INITIAL NOTES RECEIVED PT IN BED, OBTUNDED. PT CONNECTED TO VENT, AC: 12, TV: 400, FIO2: 40%, PEEP 5. O2 SAT 100%, NO SIGNS OF DISTRESS NOTED. MACARIO MIDLINE IS INTACT AND SL. G TUBE INTACT TUBE FEED HELD . SAFETY MEASURES ARE IN PLACE, CALL LIGHT IS IN REACH. BED IN THE LOWEST LOCKED POSITION. I WILL CONTINUE TO MONITOR.
--- NOTE | 2017-09-27 21:46 | NUR ---
PT RECEIVED ON VENT VIA CHARTED SETTINGS AND ROUTE. ALARMS ARE SET AND FUNCTIONAL. DISCONNECT ALARMS CHECKED. NO DISTRESS NOTED. AMBU BAG AT THE BEDSIDE. VENT PLUGGED INTO RED OUTLET. Addendum: 09/27/17 at 2146 by SHAHIDA SMITH RT Amended: Links added.
[2017-09-28] VITALS (13 sets, daily range): BP systolic 122–140; BP diastolic 32–100
[2017-09-28 06:44] LABS: EOSINOPHILS # (AUTO) 0.7 /CMM (0.0-0.7); EOSINOPHILS % (AUTO) 3.7 % (0.0-6.0); LYMPHOCYTES # (AUTO) 0.7 /CMM (0.8-4.8); LYMPHOCYTES % (AUTO) 3.6 % (20.0-44.0); MEAN CORPUSCULAR HEMOGLOBIN 32 PG (26.0-33.0); MEAN CORPUSCULAR HGB CONC 34 g/dl (31.0-36.0); MEAN CORPUSCULAR VOLUME 94 fL (82-100); MONOCYTES # (AUTO) 0.7 /CMM (0.1-1.30); MONOCYTES % (AUTO) 3.6 % (2.0-12.0); NEUTROPHILS # (AUTO) 17.8 /CMM (1.8-8.9); NEUTROPHILS % (AUTO) 89.1 % (43.0-81.0); PLATELET COUNT (AUTO) 197 /CMM (150-450); RDW COEFFICIENT OF VARIATION 19.8 (11.5-15.0); RED BLOOD CELL COUNT(AUTO) 2.16 MIL/uL (4.0-5.2)
[2017-09-28 06:50] LABS: CALCIUM, SERUM 7.5 mg/dL (8.5-10.1); CARBON DIOXIDE 25 mmol/L (21-32); CHLORIDE 104 mmol/L (98-107); CREATININE 2.2 mg/dL (0.6-1.3); GLUCOSE 85 mg/dL (74-106); MAGNESIUM 1.9 mg/dL (1.8-2.4); POTASSIUM 4.5 mmol/L (3.5-5.1); SODIUM SERUM 140 mmol/L (136-145); UREA NITROGEN, BLOOD 59 mg/dL (7-18)
[2017-09-28 07:03] LABS: HEMATOCRIT 20 % (33-45); HEMOGLOBIN 6.9 g/dL (11.5-14.8)
--- NOTE | 2017-09-28 07:15 | NUR ---
RN NOTES RELAYED LAB RESULT Hgb=6.[address] ROWLAND WITH ORDER TO TRANSFUSE 1 UNIT PRBC. ORDER NOTED AND CARRIED OUT.
--- NOTE | 2017-09-28 07:30 | NUR ---
RN NOTES RECEIVED PATIENT ON [facility] VENT WITH BREATHING NORMAL, EVEN AND UNLABORED. NO SOB NOTED. NO ACUTE DISTRESS NOTED. VENT SETTING REVIEWED AND VERIFIED. TOLERATED WELL. AFEBRILE. TELE MONITOR REVEALS SR, HR=68. MACARIO MIDLINE LINE IS PATENT AND INTACT. ON GT FEED. POSITIVE PLACEMENT. ASPIRATION PRECAUTION TAKEN. HOB ELEVATED. KEPT CLEAN, DRY AND COMFORTABLE. ALL NEEDS ATTENDED. SAFETY MEASURE OBSERVED. CALL LIGHT WITH IN REACH. WILL CONT TO MONITOR.
[2017-09-28] MEDS: PANTOPRAZOLE 40 MG VIAL IV SCH (08:50)
[2017-09-28] MEDS: VIT B CMPLX 3/FA/VIT C/BIOTIN 1 TAB TABLET PO SCH (08:50)
[2017-09-28] MEDS: FLUCONAZOLE (100 MG) 100 MG TABLET PO SCH (08:50)
[2017-09-28] MEDS: MEROPENEM 500 MG in IV NS 0.9% 50 ML IV SCH ×2 (08:50→19:53)
[2017-09-28] MEDS: AMIODARONE HCL 200 MG TABLET GT SCH ×3 (08:51→16:55)
[2017-09-28] MEDS: HYDROGEL DRESSING 90 GM TUBE TP SCH (08:51)
[2017-09-28] MEDS: MUPIROCIN OINT 2% 22 GM TUBE SCH ×2 (08:52→20:08)
--- NOTE | 2017-09-28 09:45 | NUR ---
PT RECEIVED ON VENT VIA CHARTED SETTINGS AND ROUTE. ALARMS ARE SET AND FUNCTIONAL. DISCONNECT ALARMS CHECKED. NO DISTRESS NOTED. AMBU BAG AT THE BEDSIDE. VENT PLUGGED INTO RED OUTLET. Addendum: 09/28/17 at 0945 by EDMUNDO MEJIA RT Amended: Links added.
[2017-09-28 12:23] LABS: BAND % (MANUAL) 8 % (0.0-5.0); LYMPHOCYTES % (MANUAL) 9 % (16-48); NEUTROPHILS % (MANUAL) 83 (42-76)
--- NOTE | 2017-09-28 14:59 | NUR ---
RN NOTES PATIENT RECEIVED 1 UNIT PRBC, NO ADVERSE REACTION NOTED. V/S STABLE. BREATHING IS NORMAL, EVEN AND UNLABORED. NO SOB NOTED. WILL CONT TO MONITOR.
--- NOTE | 2017-09-28 19:23 | NUR ---
RN NOTES PATIENT ENDORSED TO NEXT SHIFT IN STABLE CONDITION WITH BREATHING NORMAL, EVEN AND UNLABORED. NO SOB NOTED. NO ACUTE DISTRESS NOTED. KEPT CLEAN, DRY AND COMFORTABLE. ALL NEEDS ATTENDED. SAFETY MEASURE OBSERVED. CALL LIGHT WITH IN REACH. WILL CONT TO MONITOR.
[2017-09-29] VITALS: BP 124/68
[2017-09-29 04:00] VITALS: BP 122/76
[2017-09-29 07:29] LABS: BASOPHILS % (AUTO) 0.1 % (0.0-2.0); EOSINOPHILS # (AUTO) 0.7 /CMM (0.0-0.7); EOSINOPHILS % (AUTO) 3.2 % (0.0-6.0); HEMATOCRIT 26 % (33-45); HEMOGLOBIN 8.9 g/dL (11.5-14.8); LYMPHOCYTES # (AUTO) 1.1 /CMM (0.8-4.8); LYMPHOCYTES % (AUTO) 5.1 % (20.0-44.0); MEAN CORPUSCULAR HEMOGLOBIN 31 PG (26.0-33.0); MEAN CORPUSCULAR HGB CONC 34 g/dl (31.0-36.0); MEAN CORPUSCULAR VOLUME 91 fL (82-100); MONOCYTES # (AUTO) 0.4 /CMM (0.1-1.30); NEUTROPHILS # (AUTO) 19.2 /CMM (1.8-8.9); NEUTROPHILS % (AUTO) 89.6 % (43.0-81.0); PLATELET COUNT (AUTO) 194 /CMM (150-450); RDW COEFFICIENT OF VARIATION 20.1 (11.5-15.0); RED BLOOD CELL COUNT(AUTO) 2.87 MIL/uL (4.0-5.2); WHITE BLOOD COUNT (AUTO) 21.4 K/uL (4.3-11.0)
[2017-09-29 07:49] LABS: CALCIUM, SERUM 7.6 mg/dL (8.5-10.1); CARBON DIOXIDE 26 mmol/L (21-32); CHLORIDE 107 mmol/L (98-107); CREATININE 2.4 mg/dL (0.6-1.3); GLUCOSE 118 mg/dL (74-106); MAGNESIUM 1.9 mg/dL (1.8-2.4); PHOSPHORUS 4.5 mg/dL (2.5-4.9); POTASSIUM 4.9 mmol/L (3.5-5.1); SODIUM SERUM 143 mmol/L (136-145); UREA NITROGEN, BLOOD 71 mg/dL (7-18)
[2017-09-29 08:00] VITALS: BP_SYST 141; BP_SYST 99; BP_DIAS 54; BP_DIAS 55
--- NOTE | 2017-09-29 08:00 | NUR ---
RN NOTES PATIENT IN BED RESTING NO SOB OR ACUTE DISTRESS NOTED. PATIENT VENT DEPENDENT, VENT SETTING NOTED. PERIPHERAL IV INTACT PATENT. BED IN LOW LOCKED POSITION. CALL LIGHT WITHIN REACH. WILL CONTINUE TO MONITOR.
[2017-09-29] MEDS: VIT B CMPLX 3/FA/VIT C/BIOTIN 1 TAB TABLET PO SCH (08:48)
[2017-09-29] MEDS: AMIODARONE HCL 200 MG TABLET GT SCH ×3 (08:48→17:40)
[2017-09-29] MEDS: FLUCONAZOLE (100 MG) 100 MG TABLET PO SCH (08:48)
[2017-09-29] MEDS: MEROPENEM 500 MG in IV NS 0.9% 50 ML IV SCH ×2 (08:48→21:07)
[2017-09-29] MEDS: PANTOPRAZOLE 40 MG VIAL IV SCH (08:48)
[2017-09-29] MEDS: MUPIROCIN OINT 2% 22 GM TUBE SCH ×2 (08:49→21:10)
[2017-09-29] MEDS: HYDROGEL DRESSING 90 GM TUBE TP SCH (08:49)
[2017-09-29] MEDS: LINEZOLID RTU BAG 600 MG in PREMIX 1 EA IV SCH ×2 (10:26→23:22)
[2017-09-29 12:00] VITALS: BP 99/54
[2017-09-29 16:00] VITALS: BP_SYST 102; BP_DIAS 54; BP_DIAS 60
--- NOTE | 2017-09-29 16:00 | NUR ---
RN NOTES CONSENT WITNESSED FROM PATIENTS DAUGHTER WHO IS AT BEDSIDE. PROCEDURE UNDERSTAND.
--- NOTE | 2017-09-29 16:23 | NUR ---
RT NOTE: PATIENT RECEIVED TRACHED ON PB 840 VENT. ALARMS VERIFIED AND AUDIBLE. SUCTIONED AND LAVAGED SMALL-MODERATE AMOUNT OF THICK WALKER SECRETIONS. VENT PLUGGED INTO RED OUTLET. AMBU BAG AT [facility].
--- NOTE | 2017-09-29 17:00 | NUR ---
RN NOTES HD CATHETER PLACED BY DR. GUZMAN, PATIENT TOLERATED WELL. WILL CONTINUE MONITORING.
[2017-09-29] MEDS ORDERED: COLISTIMETHATE SODIUM 75 MG in IV NS 0.9% 50 ML IV SCH ×4 (18:30)
--- NOTE | 2017-09-29 19:12 | NUR ---
RN NOTES PATIENT IN BED RESTING. ALL DUE MEDICATIONS ADMINISTERED. ALL NEEDS MET. NO BLEEDING NOTED AT INSERTION SITE OF HD CATHETER. WILL ENDORSE TO PM SHIFT.
[2017-09-29 20:00] VITALS: BP 150/70
[2017-09-29] MEDS: COLISTIMETHATE SODIUM 75 MG in IV NS 0.9% 50 ML IV SCH (21:56)
[2017-09-30] VITALS (7 sets, daily range): BP systolic 113–145; BP diastolic 37–98
--- NOTE | 2017-09-30 01:47 | NUR ---
RT NOTES PT RECEIVED ON [facility] VENT WITH NOTED SETTING. VENT TO RED OUTLET. AMBU BAG AT [facility]. FEATHER RENOVATOR DONE. ALARMS SET AND AUDIBLE. NO SOB OR RESP DISTRESS NOTED SHIFT. Addendum: 09/30/17 at 0147 by EDMUNDO MEJIA RT Amended: Links added.
[2017-09-30 06:58] LABS: CALCIUM, SERUM 7.2 mg/dL (8.5-10.1); CARBON DIOXIDE 24 mmol/L (21-32); CHLORIDE 103 mmol/L (98-107); CREATININE 2.1 mg/dL (0.6-1.3); GLUCOSE 102 mg/dL (74-106); MAGNESIUM 1.9 mg/dL (1.8-2.4); PHOSPHORUS 3.7 mg/dL (2.5-4.9); SODIUM SERUM 139 mmol/L (136-145); UREA NITROGEN, BLOOD 57 mg/dL (7-18)
[2017-09-30 07:02] LABS: BASOPHILS % (AUTO) 0.2 % (0.0-2.0); EOSINOPHILS # (AUTO) 1.1 /CMM (0.0-0.7); EOSINOPHILS % (AUTO) 5.4 % (0.0-6.0); HEMATOCRIT 24 % (33-45); HEMOGLOBIN 8.1 g/dL (11.5-14.8); LYMPHOCYTES # (AUTO) 0.7 /CMM (0.8-4.8); LYMPHOCYTES % (AUTO) 3.6 % (20.0-44.0); MEAN CORPUSCULAR HEMOGLOBIN 31 PG (26.0-33.0); MEAN CORPUSCULAR HGB CONC 34 g/dl (31.0-36.0); MEAN CORPUSCULAR VOLUME 92 fL (82-100); MONOCYTES # (AUTO) 0.4 /CMM (0.1-1.30); NEUTROPHILS # (AUTO) 17.4 /CMM (1.8-8.9); NEUTROPHILS % (AUTO) 88.8 % (43.0-81.0); PLATELET COUNT (AUTO) 192 /CMM (150-450); RDW COEFFICIENT OF VARIATION 19.7 (11.5-15.0); RED BLOOD CELL COUNT(AUTO) 2.59 MIL/uL (4.0-5.2); WHITE BLOOD COUNT (AUTO) 19.6 K/uL (4.3-11.0)
[2017-09-30] MEDS: MEROPENEM 500 MG in IV NS 0.9% 50 ML IV SCH ×2 (08:17→20:30)
[2017-09-30] MEDS: AMIODARONE HCL 200 MG TABLET GT SCH ×3 (10:23→17:00)
[2017-09-30] MEDS: PANTOPRAZOLE 40 MG VIAL IV SCH (10:23)
[2017-09-30] MEDS: LINEZOLID RTU BAG 600 MG in PREMIX 1 EA IV SCH ×2 (10:24→21:35)
[2017-09-30] MEDS: VIT B CMPLX 3/FA/VIT C/BIOTIN 1 TAB TABLET PO SCH (10:24)
[2017-09-30] MEDS: HYDROGEL DRESSING 90 GM TUBE TP SCH (10:25)
[2017-09-30] MEDS: MUPIROCIN OINT 2% 22 GM TUBE SCH ×2 (10:26→20:30)
[2017-09-30] MEDS ORDERED: ALBUMIN 25% 25 GM in PREMIX 1 EA IV ONE (12:41)
--- NOTE | 2017-09-30 16:17 | NUR ---
Rt note: Patient received trached on PB 840 vent. Alarms verified and audible. Suctioned and lavaged moderate-large amount of thick zarco secretions. Vent plugged into red outlet. Ambu bag at [facility].
--- NOTE | 2017-09-30 19:30 | NUR ---
DEMURRAGE MAN OPENING NOTES RECEIVED REPORT FROM AM RN. PATIENT OBTUNDED & VENT-TRACH DEPENDENT. TRACH INTACT W/ VENT SETTINGS AC 12, TV 450, FIO2 40%, PEEP 5. NO RESPIRATORY DISTRESS NOTED, SATING WELL @ 99-100%. ON TELE SINUS RHYTHM IN THE 70S. LEFT UPPER ARM MIDLINE #18 INTACT W/ DRESSING CDI, TKO. G-TUBE INTACT & FLUSHING WELL W/ NOVASOURCE @ 25 ML/HR. NO RESIDUAL NOTED @ THIS TIME. NO S/S OF PAIN OR DISCOMFORT @ THIS TIME. SAFETY MEASURES IN PLACE W/ SIDE RAILS UP & BED LOCKED & IN LOWEST POSITION. WILL CONTINUE TO MONITOR.
[2017-09-30] MEDS: COLISTIMETHATE SODIUM 75 MG in IV NS 0.9% 50 ML IV SCH (20:10)
[2017-10-01] VITALS: BP 114/42
[2017-10-01 04:00] VITALS: BP 116/32
--- NOTE | 2017-10-01 07:26 | NUR ---
RT PATIENT REC'D TRACHED ON [facility] VENT WITH SETTINGS SET BY MD DAVID WEI. VENT ALARMS CHECKED + AUDIBLE. CUFF PRESSURE CHECKED HOTEL SERVICES SUPERVISOR. SUCTIONED WITH SMALL AMT WALKER SEMITHICK SECRETIONS. DIM COARSE B/S. PATIENT IN NO DISTRESS AT THIS TIME. AMBU BAG AT HOB. Addendum: 10/01/17 at 0911 by CAMERON JOHNSTON RT Amended: Links added.
--- NOTE | 2017-10-01 07:46 | NUR ---
FOREST FIRE LOOKOUT NOTES RECEIVED PATIENT OBTUNDED & VENT-TRACH DEPENDENT. TRACH INTACT W/ VENT SETTINGS AC 12, TV 450, FIO2 40%, PEEP 5. NO RESPIRATORY DISTRESS NOTED, SATING WELL @ 99-100%. ON TELE SINUS RHYTHM IN THE 70S. LEFT UPPER ARM MIDLINE #18 INTACT W/ DRESSING CDI, TKO. G-TUBE INTACT & FLUSHING WELL W/ NOVASOURCE @ 25 ML/HR. NO RESIDUAL NOTED @ THIS TIME. NO S/S OF PAIN OR DISCOMFORT @ THIS TIME. SAFETY MEASURES IN PLACE W/ SIDE RAILS UP & BED LOCKED & IN LOWEST POSITION. WILL CONTINUE TO MONITOR., RT AT BEDSIDE TRACH SUCTION DONE , BED IN LOWEST AND LOCKED POSITION , NOTED T 101.1 WILL DO COOLING MEASURE
[2017-10-01 08:00] VITALS: BP 117/56
[2017-10-01] MEDS: MEROPENEM 500 MG in IV NS 0.9% 50 ML IV SCH ×2 (08:02→19:52)
[2017-10-01] MEDS: PANTOPRAZOLE 40 MG VIAL IV SCH (08:20)
[2017-10-01] MEDS: VIT B CMPLX 3/FA/VIT C/BIOTIN 1 TAB TABLET PO SCH (08:20)
[2017-10-01] MEDS: ACETAMINOPHEN 325 MG TABLET PO PRN (08:21)
[2017-10-01] MEDS: MUPIROCIN OINT 2% 22 GM TUBE SCH ×2 (08:22→20:53)
[2017-10-01] MEDS: HYDROGEL DRESSING 90 GM TUBE TP SCH (08:22)
[2017-10-01] MEDS: AMIODARONE HCL 200 MG TABLET GT SCH ×3 (08:22→16:10)
[2017-10-01 08:23] LABS: BASOPHILS % (AUTO) 0.2 % (0.0-2.0); EOSINOPHILS # (AUTO) 1.5 /CMM (0.0-0.7); EOSINOPHILS % (AUTO) 9.2 % (0.0-6.0); HEMATOCRIT 22 % (33-45); HEMOGLOBIN 7.5 g/dL (11.5-14.8); LYMPHOCYTES # (AUTO) 1.1 /CMM (0.8-4.8); LYMPHOCYTES % (AUTO) 6.7 % (20.0-44.0); MEAN CORPUSCULAR HEMOGLOBIN 31 PG (26.0-33.0); MEAN CORPUSCULAR HGB CONC 34 g/dl (31.0-36.0); MEAN CORPUSCULAR VOLUME 92 fL (82-100); MONOCYTES # (AUTO) 0.6 /CMM (0.1-1.30); MONOCYTES % (AUTO) 3.9 % (2.0-12.0); NEUTROPHILS # (AUTO) 13.3 /CMM (1.8-8.9); PLATELET COUNT (AUTO) 178 /CMM (150-450); RDW COEFFICIENT OF VARIATION 19.9 (11.5-15.0); WHITE BLOOD COUNT (AUTO) 16.7 K/uL (4.3-11.0)
[2017-10-01 08:53] LABS: CALCIUM, SERUM 7.1 mg/dL (8.5-10.1); CARBON DIOXIDE 29 mmol/L (21-32); CHLORIDE 104 mmol/L (98-107); CREATININE 1.8 mg/dL (0.6-1.3); GLUCOSE 92 mg/dL (74-106); MAGNESIUM 1.8 mg/dL (1.8-2.4); PHOSPHORUS 3.2 mg/dL (2.5-4.9); SODIUM SERUM 139 mmol/L (136-145); UREA NITROGEN, BLOOD 47 mg/dL (7-18)
[2017-10-01] MEDS: LINEZOLID RTU BAG 600 MG in PREMIX 1 EA IV SCH ×2 (09:28→20:53)
--- NOTE | 2017-10-01 09:57 | NUR ---
STORE LOSS PREVENTION MANAGER NOTE T 101.1 STEPHEN RN ID NOTIFIED ALSO DR LOTT AT BEDSIDE NOTIFIED THAT T 101.1 WAS EARLIER COOLING MEASURE PROVIDED,TYLENOL WAS GIVEN ,WITH ORDER TO DO BLOOD CX
--- NOTE | 2017-10-01 11:50 | NUR ---
BEEHIVE KILN SUPERVISOR NOTE HD STARTED ORDERED
[2017-10-01 12:00] VITALS: BP 97/40
[2017-10-01] MEDS ORDERED: ALBUMIN 25% 25 GM in PREMIX 1 EA IV PRN (12:00)
--- NOTE | 2017-10-01 12:18 | NUR ---
ENTRY LEVEL ELECTRICIAN NOTE T 100.1 HD STOPPED BP 88/45, ALBUMIN WAS GIVEN BY HD NURSE WILL F\U
--- NOTE | 2017-10-01 13:06 | NUR ---
SEXUAL ASSAULT NURSE NOTE T 99.3, ALL NEEDS ATTENDED, SPOKE WITH DR STARKEY NOTIFIED JONG EARLIER BP WAS LOW AND T 101.1 STATED WILL CONT TO MONITOR LABS AR BEDSIDE BLOOD CX DONE ,
[2017-10-01] MEDS ORDERED: RENAL NOVASOURCE 1,000 ML BOTTLE GT PRN (15:30)
[2017-10-01 16:00] VITALS: BP 110/72
--- NOTE | 2017-10-01 17:44 | NUR ---
SEW OUT OPERATOR NOTE ORAL SUCTION DONE, KEEP CLEAN DRY, ON TRACH TO VENT SETTING , WILL CONT TO MONITOR CLOSELY
--- NOTE | 2017-10-01 18:47 | NUR ---
FILE CLERK DATA ENTRY NOTE RT AT BEDSIDE ,A TRACH SUCTION DONE , NO FEVER AT THIS TIME , WILL CONT TO MONITOR CLOSELY
--- NOTE | 2017-10-01 19:30 | NUR ---
SOFTWARE CONFIGURATION MANAGER OPENING NOTES RECEIVED REPORT FROM ALBA KIMBLE. PATIENT OBTUNDED & VENT-TRACH DEPENDENT. TRACH INTACT W/ VENT SETTINGS AC 12, TV 450, FIO2 40%, PEEP 5. NO RESPIRATORY DISTRESS NOTED, SATING WELL @ 99-100%. ON TELE SINUS RHYTHM IN THE 70S. LEFT UPPER ARM MIDLINE #18 INTACT W/ DRESSING CDI, TKO. G-TUBE INTACT & FLUSHING WELL W/ NOVASOURCE @ 25 ML/HR. NO RESIDUAL NOTED @ THIS TIME. NO S/S OF PAIN OR DISCOMFORT @ THIS TIME. SAFETY MEASURES IN PLACE W/ SIDE RAILS UP & BED LOCKED & IN LOWEST POSITION. WILL CONTINUE TO MONITOR.
[2017-10-01 20:00] VITALS: BP 130/47
[2017-10-01] MEDS: COLISTIMETHATE SODIUM 75 MG in IV NS 0.9% 50 ML IV SCH (21:32)
[2017-10-02] VITALS: BP 125/47
[2017-10-02 04:00] VITALS: BP 109/48
--- NOTE | 2017-10-02 07:30 | NUR ---
GUIDE TRAVEL NOTE: PATIENT IN BED, ASLEEP W/ HOB ELEVATED. RESPIRATION IS EVEN AND UNLABORED. VENT-TRACH DEPENDENT. (R) UA MIDLINE REMAINED PATENT AND INTACT. NO S/S OF DISCOMFORT/PAIN. ON COIL TAPER SR= 70. GT FEEDING OF NOVASOURCE @25CC/HR AND TOLERATING IT WELL. CALL LIGHT WITHIN REACH. BED ALARM AND LOCKED AT ALL TIMES.
[2017-10-02 08:00] VITALS: BP 93/43
[2017-10-02] MEDS: MEROPENEM 500 MG in IV NS 0.9% 50 ML IV SCH ×2 (08:09→20:57)
[2017-10-02] MEDS: PANTOPRAZOLE 40 MG VIAL IV SCH (09:17)
[2017-10-02] MEDS: LINEZOLID RTU BAG 600 MG in PREMIX 1 EA IV SCH ×2 (09:17→22:16)
[2017-10-02] MEDS: VIT B CMPLX 3/FA/VIT C/BIOTIN 1 TAB TABLET PO SCH (09:17)
[2017-10-02] MEDS: MUPIROCIN OINT 2% 22 GM TUBE SCH ×2 (09:18→22:17)
[2017-10-02] MEDS: HYDROGEL DRESSING 90 GM TUBE TP SCH (09:24)
[2017-10-02] MEDS: AMIODARONE HCL 200 MG TABLET GT SCH ×3 (10:16→17:00)
[2017-10-02 12:00] VITALS: BP 91/32
[2017-10-02] MEDS: ACETAMINOPHEN 325 MG TABLET PO PRN (12:45)
--- NOTE | 2017-10-02 13:00 | NUR ---
EMPLOYEE REPRESENTATIVE NOTE: PATIENT'S GT FEEDING OF NOVASOURCE WAS INCREASED TO 35CC/HR AND WILL MONITOR FOR ANY RESIDUAL.
--- NOTE | 2017-10-02 13:46 | NUR ---
PACKING MACHINE CAN FEEDER NOTE: INFORMED GUCCI ORTIZ NP RE: THE PATIENT'S BP OF 82/34 HR OF 68. AUTO BODY REPAIRER FIBERGLASS MADE AWARE THAT AMIODARONE WAS HELD. HE WAS ALSO AWARE THAT PT HAD A TEMP OF 100.1F AND TYLENOL 650 MG WAS ADMINISTERED W/ COOLING MEASURE.
--- NOTE | 2017-10-02 14:30 | NUR ---
SALES SERVICE REPRESENTATIVE NOTE: RECHECKED PATIENT'S TEMP AND IT WAS 98.5F.
--- NOTE | 2017-10-02 15:15 | NUR ---
STAPLER HAND NOTE: RECHECKED THE PATIENT'S GT RESIDUAL AND NO RESIDUAL WAS NOTED. PATIENT TOLERATING THE CURRENT GT FEEDING RATE (NOVASOURCE@35CC/HR).
[2017-10-02 16:00] VITALS: BP 77/31
--- NOTE | 2017-10-02 17:00 | NUR ---
SENIOR COURTROOM CLERK NOTE: PATIENT'S AMIODARONE WAS HELD DUE TO LOW BP 75/44, HR 60. GUCCI ORTIZ NP AWARE.
[2017-10-02] MEDS ORDERED: IV NS 0.9% 500 ML IV ONE (18:00)
--- NOTE | 2017-10-02 18:01 | NUR ---
CASING OPERATOR NOTE: RECEIVED AN ORDER FROM GUCCI ORTIZ NP RE: PATIENT'S LOW BP. NS 500ML IV BOLUS WAS ORDERED.
--- NOTE | 2017-10-02 18:37 | NUR ---
RELATIONSHIP BANKER NOTE: CALLED AND SPOKE W/ MOHAN CISSE (DAUGHTER) AND MADE HER AWARE RE: THE MD ORDER FOR ULTRASOUND GUIDED THORACENTESIS OF THE (R) LUNG. MOHAN GAVE A VERBAL CONSENT AND IT WAS VERIFIED VIA PHONE BY LAMIN PARKER AND LAMIN JEAN-BAPTISTE.
--- NOTE | 2017-10-02 18:49 | NUR ---
RN MEDICARE NOTE: PATIENT IN BED, ASLEEP W/ HOB ELEVATED. RESPIRATION IS EVEN AND UNLABORED. VENT-TRACH DEPENDENT. (R) UA MIDLINE REMAINED PATENT AND INTACT. NO S/S OF DISCOMFORT/PAIN. GT FEEDING OF NOVASOURCE @35CC/HR AND TOLERATING IT WELL. CURRENTLY RECEIVING IV BOLUS OF NS 500ML PER GUCCI ORTIZ NP. AFEBRILE. TEMP 98.4F. WILL REPORT TO PM SHIFT NURSE FOR CONTINUITY OF CARE.
--- NOTE | 2017-10-02 19:20 | NUR ---
RATE MANAGER OPENING NOTES RECEIVED REPORT FROM ESTIVEN KIMBLE. PATIENT OBTUNDED & VENT-TRACH DEPENDENT. TRACH INTACT W/ VENT SETTINGS AC 12, TV 450, FIO2 40%, PEEP 5. NO RESPIRATORY DISTRESS NOTED, SATING WELL @ 99-100%. ON TELE SINUS RHYTHM IN THE 70S. LEFT UPPER ARM MIDLINE #18 INTACT W/ DRESSING CDI, TKO. G-TUBE INTACT & FLUSHING WELL W/ NOVASOURCE @ 35 ML/HR. NO RESIDUAL NOTED @ THIS TIME. NO S/S OF PAIN OR DISCOMFORT @ THIS TIME. SAFETY MEASURES IN PLACE W/ SIDE RAILS UP & BED LOCKED & IN LOWEST POSITION. WILL CONTINUE TO MONITOR.
[2017-10-02 20:00] VITALS: BP 81/36
[2017-10-02] MEDS: COLISTIMETHATE SODIUM 75 MG in IV NS 0.9% 50 ML IV SCH (20:13)
--- NOTE | 2017-10-02 23:40 | NUR ---
BOOKKEEPING ASSISTANT DURING EVENING CARE, PT WAS NOTED TO HAVE A DISLODGED FLEXISEAL. NEW FLEXISEAL WAS INSERTED DUE TO DIARRHEA AND SKIN PROTECTION. WILL CONTINUE TO MONITOR. Addendum: 10/06/17 at 0531 by ALVERTO SIFUENTES RN DATE FOR THIS NOTE IS 10/05/17
[2017-10-03] VITALS (13 sets, daily range): BP systolic 71–115; BP diastolic 35–68
[2017-10-03] MEDS ORDERED: IV NS 0.9% 500 ML IV ONE (04:00)
--- NOTE | 2017-10-03 04:30 | NUR ---
RN NOTES PATIENT NOTED W/ BP 79/45, HR 71. SPOKE TO ROSALES MADRIGAL & RECEIVED NEW ORDER FOR BOLUS. NEW ORDER NOTED & CARRIED OUT. WILL CONTINUE TO MONITOR PATIENT CLOSELY.
[2017-10-03 08:00] LABS: BASOPHILS % (AUTO) 0.2 % (0.0-2.0); EOSINOPHILS # (AUTO) 1.5 /CMM (0.0-0.7); EOSINOPHILS % (AUTO) 7.8 % (0.0-6.0); LYMPHOCYTES % (AUTO) 5.3 % (20.0-44.0); MEAN CORPUSCULAR HEMOGLOBIN 31 PG (26.0-33.0); MEAN CORPUSCULAR HGB CONC 34 g/dl (31.0-36.0); MEAN CORPUSCULAR VOLUME 92 fL (82-100); MONOCYTES # (AUTO) 0.4 /CMM (0.1-1.30); MONOCYTES % (AUTO) 1.9 % (2.0-12.0); NEUTROPHILS # (AUTO) 16.4 /CMM (1.8-8.9); NEUTROPHILS % (AUTO) 84.8 % (43.0-81.0); PLATELET COUNT (AUTO) 160 /CMM (150-450); RDW COEFFICIENT OF VARIATION 19.1 (11.5-15.0); WHITE BLOOD COUNT (AUTO) 19.3 K/uL (4.3-11.0)
[2017-10-03 08:08] LABS: HEMATOCRIT 19 % (33-45); HEMOGLOBIN 6.3 g/dL (11.5-14.8)
[2017-10-03 08:29] LABS: ALANINE AMINOTRANSFERASE 37 U/L (12-78); ALKALINE PHOSPHATASE 515 U/L (46-116); ASPARTATE AMINOTRANSFERASE 47 U/L (15-37); CALCIUM, SERUM 7.6 mg/dL (8.5-10.1); CARBON DIOXIDE 24 mmol/L (21-32); CHLORIDE 104 mmol/L (98-107); CREATININE 2.1 mg/dL (0.6-1.3); GLUCOSE 84 mg/dL (74-106); MAGNESIUM 1.8 mg/dL (1.8-2.4); PHOSPHORUS 3.8 mg/dL (2.5-4.9); POTASSIUM 4.4 mmol/L (3.5-5.1); SODIUM SERUM 138 mmol/L (136-145); TOTAL PROTEIN, SERUM 5.3 g/dL (6.4-8.2); UREA NITROGEN, BLOOD 58 mg/dL (7-18)
[2017-10-03 08:41] LABS: ALBUMIN 1.3 g/dL (3.4-5.0)
--- NOTE | 2017-10-03 08:45 | NUR ---
RN NOTE RN CONTACTED [facility] TO NOTIFY MD GUCCI JAUREGUI IN REGARDS TO CRITICAL LABS HB.3 HCT19 AND ALBUMIN 1.3 , RN AWAITING RETURN PHONE CALL CHARGE NURSE NOTIFIED
[2017-10-03] MEDS: AMIODARONE HCL 200 MG TABLET GT SCH ×3 (08:55→17:00)
[2017-10-03] MEDS: MEROPENEM 500 MG in IV NS 0.9% 50 ML IV SCH ×2 (08:55→20:37)
[2017-10-03] MEDS: PANTOPRAZOLE 40 MG VIAL IV SCH (08:56)
[2017-10-03] MEDS: MUPIROCIN OINT 2% 22 GM TUBE SCH ×2 (08:59→20:48)
[2017-10-03] MEDS: HYDROGEL DRESSING 90 GM TUBE TP SCH (08:59)
[2017-10-03] MEDS: VIT B CMPLX 3/FA/VIT C/BIOTIN 1 TAB TABLET PO SCH (09:06)
[2017-10-03] MEDS: LINEZOLID RTU BAG 600 MG in PREMIX 1 EA IV SCH ×2 (09:07→21:09)
[2017-10-03 09:31] LABS: EOSINOPHILS % (MANUAL) 4 % (0-4); LYMPHOCYTES % (MANUAL) 5 % (16-48); MONOCYTES % (MANUAL) 2 % (0-11.0); NEUTROPHILS % (MANUAL) 89 (42-76)
[2017-10-03 13:45] LABS: INR 1.76 (0.87-1.13)
--- NOTE | 2017-10-03 14:07 | NUR ---
2:00 PM - PATIENT CURRENTLY ON DIALYSIS. WAITING TO DO ULTRASOUND GUIDED THORACENTESIS. WILL CHECK BACK AT 3:30 PM
--- NOTE | 2017-10-03 14:09 | NUR ---
RN NOTE PATIENT RECEIVED 1 UNIT OF BLOOD WITH HD
[2017-10-03 14:25] LABS: EOSINOPHILS # (AUTO) 0.8 /CMM (0.0-0.7); EOSINOPHILS % (AUTO) 6.8 % (0.0-6.0); LYMPHOCYTES # (AUTO) 0.5 /CMM (0.8-4.8); LYMPHOCYTES % (AUTO) 4.4 % (20.0-44.0); MEAN CORPUSCULAR HEMOGLOBIN 30 PG (26.0-33.0); MEAN CORPUSCULAR HGB CONC 33 g/dl (31.0-36.0); MEAN CORPUSCULAR VOLUME 90 fL (82-100); MONOCYTES # (AUTO) 0.1 /CMM (0.1-1.30); MONOCYTES % (AUTO) 0.5 % (2.0-12.0); NEUTROPHILS # (AUTO) 9.9 /CMM (1.8-8.9); NEUTROPHILS % (AUTO) 88.3 % (43.0-81.0); PLATELET COUNT (AUTO) 114 /CMM (150-450); RDW COEFFICIENT OF VARIATION 19.8 (11.5-15.0); RED BLOOD CELL COUNT(AUTO) 2.21 MIL/uL (4.0-5.2); WHITE BLOOD COUNT (AUTO) 11.2 K/uL (4.3-11.0)
[2017-10-03 14:45] LABS: HEMATOCRIT 20 % (33-45); HEMOGLOBIN 6.6 g/dL (11.5-14.8)
--- NOTE | 2017-10-03 18:18 | NUR ---
RN NOTE RN WILL ENDORSE CONTINUATION OF CARE
--- NOTE | 2017-10-03 18:18 | NUR ---
RN CLOSING NOTE PATIENT HAS EXPERIENCED DECREASED BLOOD PRESSURE THROUGHOUT THE DAY , HOWEVER PATIENT RECEIVED 2 L OF RBC PER MD ORTIZ ORDER FOR LOW H/H PATIENT HAS BEEN TURNED AND REPOSITIONED Q 2HRS PATIENT LABS MONITORED AND ASSESSED PATIENT HAS REMAINED IN STABLE CONDITION THROUGHOUT THE DAY NO SOB NOTED TOLERATED VENT SETTINGS WELL , 5L REMOVED DURING HEMODIALYSIS
--- NOTE | 2017-10-03 20:14 | NUR ---
WEBSITE/BLOG EDITOR INITIAL NOTES RN RECEIVED PATIENT IN BED OBTUNDED & VENT-TRACH DEPENDENT. TRACH INTACT W/ VENT SETTINGS AC 12, TV 450, FIO2 40%, PEEP 5. NO RESPIRATORY DISTRESS NOTED, PT SATING WELL 98%. PT ON TELE- SINUS RHYTHM IN THE 70S. LEFT UPPER ARM MIDLINE #18 INTACT W/ DRESSING CLEAN DRY AND INTACT, TKO. G-TUBE INTACT & FLUSHING WELL W/ NOVASOURCE @ 35 ML/HR. NO RESIDUAL NOTED @ THIS TIME. NO S/S OF PAIN OR DISCOMFORT @ THIS TIME. SAFETY MEASURES IN PLACE W/ SIDE RAILS UP & BED LOCKED & IN LOWEST POSITION. RN WILL CONTINUE TO MONITOR THROUGHOUT THE DAY.
[2017-10-03] MEDS: COLISTIMETHATE SODIUM 75 MG in IV NS 0.9% 50 ML IV SCH (21:28)
[2017-10-03] MEDS: RENAL NOVASOURCE 1,000 ML BOTTLE GT PRN (22:28)
[2017-10-04] VITALS (40 sets, daily range): BP systolic 63–155; BP diastolic 37–80
--- NOTE | 2017-10-04 03:00 | NUR ---
RN INITIAL NOTES RECEIVED PATIENT IN BED OBTUNDED & VENT-TRACH DEPENDENT. TRACH INTACT W/ VENT SETTINGS AC 12, TV 450, FIO2 40%, PEEP 5. NO RESPIRATORY DISTRESS NOTED, PT SATING WELL 98%. PT ON TELE- SINUS RHYTHM IN THE 70S. LEFT UPPER ARM MIDLINE #18 INTACT W/ DRESSING CLEAN DRY AND INTACT, TKO. G-TUBE INTACT & FLUSHING WELL W/ NOVASOURCE @ 35 ML/HR. NO RESIDUAL NOTED @ THIS TIME. NO S/S OF PAIN OR DISCOMFORT @ THIS TIME. SAFETY MEASURES IN PLACE W/ SIDE RAILS UP & BED LOCKED & IN LOWEST POSITION. RN WILL CONTINUE TO MONITOR.
--- NOTE | 2017-10-04 06:33 | NUR ---
RN CLOSING NOTES NO CHANGE IN PTS CONDITION OVER NIGHT, PATIENT IN BED OBTUNDED & VENT-TRACH DEPENDENT. TRACH INTACT W/ VENT SETTINGS AC 12, TV 450, FIO2 40%, PEEP 5. NO RESPIRATORY DISTRESS NOTED, PT SATING WELL 98%. PT ON TELE- SINUS RHYTHM IN THE 70S. LEFT UPPER ARM MIDLINE #18 INTACT W/ DRESSING CLEAN DRY AND INTACT, TKO. G-TUBE INTACT & FLUSHING WELL W/ NOVASOURCE @ 35 ML/HR. NO RESIDUAL NOTED @ THIS TIME. NO S/S OF PAIN OR DISCOMFORT @ THIS TIME. SAFETY MEASURES IN PLACE W/ SIDE RAILS UP & BED LOCKED & IN LOWEST POSITION. RN WILL ENDORSE TO AM RN.
[2017-10-04 07:19] LABS: BASOPHILS % (AUTO) 0.2 % (0.0-2.0); EOSINOPHILS # (AUTO) 1.7 /CMM (0.0-0.7); HEMATOCRIT 25 % (33-45); HEMOGLOBIN 8.6 g/dL (11.5-14.8); LYMPHOCYTES # (AUTO) 1.2 /CMM (0.8-4.8); LYMPHOCYTES % (AUTO) 6.7 % (20.0-44.0); MEAN CORPUSCULAR HEMOGLOBIN 31 PG (26.0-33.0); MEAN CORPUSCULAR HGB CONC 35 g/dl (31.0-36.0); MEAN CORPUSCULAR VOLUME 89 fL (82-100); MONOCYTES # (AUTO) 0.5 /CMM (0.1-1.30); MONOCYTES % (AUTO) 2.8 % (2.0-12.0); NEUTROPHILS # (AUTO) 13.9 /CMM (1.8-8.9); NEUTROPHILS % (AUTO) 80.3 % (43.0-81.0); PLATELET COUNT (AUTO) 127 /CMM (150-450); RED BLOOD CELL COUNT(AUTO) 2.83 MIL/uL (4.0-5.2); WHITE BLOOD COUNT (AUTO) 17.3 K/uL (4.3-11.0)
--- NOTE | 2017-10-04 07:30 | NUR ---
RN OPEN NOTES RECEIVED REPORT FROM AVIATION SAFETY EQUIPMENT TECHNICIAN NURSE. PATIENT IS IN BED, VENT DEPENDENT AND NON VERBAL. BED IN LOW POSITION LOCKED AND TWO SIDE RAILS ARE UP. CALL LIGHT WITHIN REACH FOR SAFETY. BREATHING IS BILATERALLY EVEN. NO SIGNS AND SYMPTOMS OF DISTRESS. WILL CONTINUE TO MONITOR AND ASSESS PATIENT
[2017-10-04 07:50] LABS: CARBON DIOXIDE 27 mmol/L (21-32); CHLORIDE 104 mmol/L (98-107); CREATININE 1.7 mg/dL (0.6-1.3); GLUCOSE 93 mg/dL (74-106); MAGNESIUM 1.6 mg/dL (1.8-2.4); POTASSIUM 3.8 mmol/L (3.5-5.1); SODIUM SERUM 139 mmol/L (136-145); UREA NITROGEN, BLOOD 39 mg/dL (7-18)
--- NOTE | 2017-10-04 08:14 | NUR ---
PHARMACY NOTIFIED TO SEND MERREM TO UNIT. NO MERREM IN THE PATIENT CASSETTE
[2017-10-04] MEDS: MEROPENEM 500 MG in IV NS 0.9% 50 ML IV SCH ×2 (08:49→20:37)
[2017-10-04] MEDS: AMIODARONE HCL 200 MG TABLET GT SCH ×2 (08:49→12:43)
[2017-10-04] MEDS: VIT B CMPLX 3/FA/VIT C/BIOTIN 1 TAB TABLET PO SCH (08:50)
[2017-10-04] MEDS: PANTOPRAZOLE 40 MG VIAL IV SCH (08:50)
[2017-10-04] MEDS: HYDROGEL DRESSING 90 GM TUBE TP SCH (08:50)
[2017-10-04] MEDS: MUPIROCIN OINT 2% 22 GM TUBE SCH ×2 (08:54→21:00)
[2017-10-04] MEDS: LINEZOLID RTU BAG 600 MG in PREMIX 1 EA IV SCH ×2 (09:32→21:32)
[2017-10-04] MEDS ORDERED: IV NS 0.9% 500 ML BAG IV ONE ×2 (11:30→13:00)
--- NOTE | 2017-10-04 11:30 | NUR ---
BLOOD PRESSURE LOW = SBP 60. DR LOTT NOTIFIED. 500ML BOLUS ORDERED
--- NOTE | 2017-10-04 11:35 | NUR ---
PEEP REDUCED FROM "5" TO "0" PER DR OREN PATEL
--- NOTE | 2017-10-04 12:13 | NUR ---
500ML BOLUS ADMINISTERED. BP IS STILL LOW 77/36. DR LOTT AND DR ORTIZ NOTIFIED. PER DR LOTT GIVE ANOTHER 250 ML NS BOLUS
--- NOTE | 2017-10-04 12:47 | NUR ---
BLOOD PRESSURE IS 60/25. DR LOTT NOTIFIED. GIVE ANOTHER 500 ML BOLUS, PLUS CBC AND BCX2. IF BP STILL LOW, TRANSFER TO ICU
[2017-10-04] MEDS ORDERED: IV NS 0.9% 250 ML BAG IV ONE (13:00)
--- NOTE | 2017-10-04 13:21 | NUR ---
BLOOD PRESSURE IS 71/37. TRANSFERRING TO ICU
--- NOTE | 2017-10-04 13:55 | NUR ---
TRANSFERRED PATIENT TO ICU WITH 2 RT AND A MONITOR. REPORT GAVE TO GREG
[2017-10-04 13:59] LABS: BASOPHILS % (AUTO) 0.1 % (0.0-2.0); EOSINOPHILS # (AUTO) 1.6 /CMM (0.0-0.7); EOSINOPHILS % (AUTO) 10.8 % (0.0-6.0); HEMATOCRIT 24 % (33-45); LYMPHOCYTES # (AUTO) 0.8 /CMM (0.8-4.8); LYMPHOCYTES % (AUTO) 5.5 % (20.0-44.0); MEAN CORPUSCULAR HEMOGLOBIN 30 PG (26.0-33.0); MEAN CORPUSCULAR HGB CONC 34 g/dl (31.0-36.0); MEAN CORPUSCULAR VOLUME 88 fL (82-100); MONOCYTES # (AUTO) 0.4 /CMM (0.1-1.30); MONOCYTES % (AUTO) 2.9 % (2.0-12.0); NEUTROPHILS # (AUTO) 12.1 /CMM (1.8-8.9); NEUTROPHILS % (AUTO) 80.7 % (43.0-81.0); PLATELET COUNT (AUTO) 123 /CMM (150-450); RDW COEFFICIENT OF VARIATION 19.6 (11.5-15.0); RED BLOOD CELL COUNT(AUTO) 2.67 MIL/uL (4.0-5.2)
--- NOTE | 2017-10-04 14:00 | NUR ---
RN NOTES RECEIVED PT IN ROOM 252, OBTUNDED,NONVERBAL , VENT/ TRACH DEPENDENT , TOLERATING CURRENT VENT SETTING WELL, O2 SAT 100% AT THIS TIME , NO SOB NOTED, BP= 79/50, DR LOTT NOTIFIED, ON TELE SR HR IN 70'S , SR UP x3, CALL LIGHTS WITHIN EASY REACH, BED LOCKED AND IN LOWEST POSITION WILL CONTINUE TO MONITOR PT CLOSELY.
[2017-10-04] MEDS ORDERED: NOREPINEPHRINE 16 MG in IV D5W 500 ML IV PRN (14:30)
--- NOTE | 2017-10-04 14:45 | NUR ---
RN NOTES R IJ TLC LINE INSERTED AT THE BEDSIDE BY DR ORTIZ . CONTINUE TO MONITOR THE INSERTION SITE CLOSELY . NO COMPLICATION NOTED .
[2017-10-04] MEDS ORDERED: IV D5/ 0.9% NACL 1,000 ML IV PRN (15:30)
[2017-10-04] MEDS: HYDROCORTISONE SOD SUCCINATE 100 MG/2 ML VIAL IV SCH (16:36)
--- NOTE | 2017-10-04 17:00 | NUR ---
RN NOTES R UPPER ARM MILLINE D/NOLVIA ,
--- NOTE | 2017-10-04 18:22 | NUR ---
RN NOTES TRACH CARE DONE, RESPIRATION EVEN AND UNLABORED, HR IN 80'S SR , BP 102/59, LEVOPHED AT 2MCG/MIN RUNNING VIA R NECK IJ TLC, SITE CDI, TF NOVASOURCE AT 35CC/HR RUNNING VIA GT , NO RESIDUAL NOTED, SR UP x3, CALL LIGHT WITHIN EASY REACH, WILL ENDORSE TO HEARING THERAPY TEACHER NURSE FOR NICK.
[2017-10-04] MEDS: COLISTIMETHATE SODIUM 75 MG in IV NS 0.9% 50 ML IV SCH (19:50)
--- NOTE | 2017-10-04 20:04 | NUR ---
RN INITIAL ICU NOTES RECEIVED PT IN ROOM 252, OBTUNDED,NONVERBAL , VENT/ TRACH DEPENDENT , TOLERATING CURRENT VENT SETTING WELL, O2 SAT 100% AT THIS TIME , NO SOB NOTED, BP= 112/71 ON LEVO @ 2 MCG, ON TELE SR HR IN 87'S , SR UP x3, CALL LIGHTS WITHIN EASY REACH, BED LOCKED AND IN LOWEST POSITION WILL CONTINUE TO MONITOR PT CLOSELY.
--- NOTE | 2017-10-04 20:14 | NUR ---
PT RECEIVED TRACHED ON 840 VENT SHLY 6. NO RESP DISTRESS NOTED. PT TOLERATING VENT SETTINGS. SX'D FRO SML AMT OF WALKER THICK SECRETIONS. VENT ALARMS SET AND AUDIBLE. AMBU BAG AT BEDSIDE. WILL CONTINUE TO MONITOR. Addendum: 10/04/17 at 2016 by CRISTOBAL VALLADARES RT Amended: Links added.
--- NOTE | 2017-10-04 21:09 | NUR ---
BACTROBAN NOT GIVEN OINT TUBE WAS NOT TRANSFERED WITH PT, WILL F/U WITH PHARMACY IN AM.
[2017-10-05] VITALS (83 sets, daily range): BP systolic 82–156; BP diastolic 49–98
[2017-10-05 04:59] LABS: BASOPHILS % (AUTO) 0.1 % (0.0-2.0); EOSINOPHILS % (AUTO) 0.1 % (0.0-6.0); HEMATOCRIT 26 % (33-45); HEMOGLOBIN 8.7 g/dL (11.5-14.8); LYMPHOCYTES # (AUTO) 0.4 /CMM (0.8-4.8); LYMPHOCYTES % (AUTO) 2.5 % (20.0-44.0); MEAN CORPUSCULAR HEMOGLOBIN 30 PG (26.0-33.0); MEAN CORPUSCULAR HGB CONC 34 g/dl (31.0-36.0); MEAN CORPUSCULAR VOLUME 89 fL (82-100); MONOCYTES # (AUTO) 0.3 /CMM (0.1-1.30); MONOCYTES % (AUTO) 1.6 % (2.0-12.0); NEUTROPHILS # (AUTO) 15.7 /CMM (1.8-8.9); NEUTROPHILS % (AUTO) 95.7 % (43.0-81.0); PLATELET COUNT (AUTO) 147 /CMM (150-450); RDW COEFFICIENT OF VARIATION 19.5 (11.5-15.0); RED BLOOD CELL COUNT(AUTO) 2.88 MIL/uL (4.0-5.2); WHITE BLOOD COUNT (AUTO) 16.4 K/uL (4.3-11.0)
[2017-10-05 05:17] LABS: CALCIUM, SERUM 8.1 mg/dL (8.5-10.1); CARBON DIOXIDE 23 mmol/L (21-32); CHLORIDE 103 mmol/L (98-107); CREATININE 1.9 mg/dL (0.6-1.3); GLUCOSE 134 mg/dL (74-106); MAGNESIUM 1.5 mg/dL (1.8-2.4); PHOSPHORUS 3.2 mg/dL (2.5-4.9); POTASSIUM 3.9 mmol/L (3.5-5.1); SODIUM SERUM 136 mmol/L (136-145); UREA NITROGEN, BLOOD 43 mg/dL (7-18)
[2017-10-05] MEDS: RENAL NOVASOURCE 1,000 ML BOTTLE GT PRN (05:47)
--- NOTE | 2017-10-05 07:30 | NUR ---
DERIVATIVES TRADER- Dr. Tate at bedside. Per md, give infusing NS @ 200 ml for 2 L only. Orders placed by md. Will continue to monitor.
[2017-10-05] MEDS: PANTOPRAZOLE 40 MG VIAL IV SCH (08:20)
[2017-10-05] MEDS: MEROPENEM 500 MG in IV NS 0.9% 50 ML IV SCH ×2 (08:21→19:53)
[2017-10-05] MEDS: VIT B CMPLX 3/FA/VIT C/BIOTIN 1 TAB TABLET PO SCH (08:21)
[2017-10-05] MEDS: HYDROCORTISONE SOD SUCCINATE 100 MG/2 ML VIAL IV SCH ×3 (08:21→17:38)
[2017-10-05 08:36] LABS: ABG BASE EXCESS -2.9 mmol/L; ABG OXYGEN SATURATION 97.7 % (92.0-98.5); ABG PCO2 30.7 mmHg (35.0-45.0); ABG PH 7.442 (7.350-7.450); AaDO2 64.8 mmHg; MetHb 0.7 % (0.0-1.5); SITE, ABG Left Radial; VT, ABG 450 mL
--- NOTE | 2017-10-05 09:00 | NUR ---
TELEPRINTER- HD started. HD nurse at bedside. 1230- HD completed. HD nurse gave 200 mL (no fluids removed). Will continue to monitor.
[2017-10-05] MEDS: IV NS 0.9% 1,000 ML IV SCH ×2 (09:06→14:21)
[2017-10-05] MEDS: LINEZOLID RTU BAG 600 MG in PREMIX 1 EA IV SCH ×2 (09:48→21:17)
[2017-10-05] MEDS: HYDROGEL DRESSING 90 GM TUBE TP SCH (11:31)
--- NOTE | 2017-10-05 12:09 | NUR ---
DIVORCE LAWYERKENTON Pabon DNP at bedside. Per MANAGER TITLE, once 2L NS completed, infuse NS @ 80 ml/hr. Also obtained order for Magnesium 2 gm for Mag level of 1.5. Orders placed. Will continue to monitor. Addendum: 10/05/17 at 1937 by LEATHA FAJARDO RN In addition, obtained order to insert flexi-seal since pt has had liquid stool. Flexi-seal inserted.
[2017-10-05] MEDS: MUPIROCIN OINT 2% 22 GM TUBE SCH ×2 (12:14→21:17)
[2017-10-05] MEDS: Magnesium 1GM/D5W 100ML PREMIX 100 ML IV SCH ×2 (16:00→16:57)
--- NOTE | 2017-10-05 18:45 | NUR ---
PHOTOGRAMMETRIST- HD nurse removed right femoral HD cath per Dr. Benjamin's order. RN stated that pt will have no HD for 3 days per md. Charge nurse aware. Will continue to monitor.
[2017-10-05] MEDS: IV NS 0.9% 1,000 ML IV PRN (19:30)
--- NOTE | 2017-10-05 19:30 | NUR ---
BEHAVIORAL SPECIALIST INITIAL NOTE RECEIVED REPORT FROM LEATHA KIMBLE. PT IN BED. TRACHED AND VENTED. SHILEY 6. AC 12, TV 450, FIO2 30, PEEP 5. LUNG SOUNDS RHONCHI. PUPILS PINPOINT AND NON REACTIVE. OBTUNDED. GT PATENT AND INTACT. RIGHT IJ TLC PATENT AND INTACT . HD NURSE REMOVED RIGHT GROIN HD CATH PER DR MENG. FRANKURIC. MULTIPLE SKIN ISSUES. BED IN LOW LOCKED POSITION. WILL CONTINUE TO MONITOR.
--- NOTE | 2017-10-05 20:00 | NUR ---
PT RECEIVED TRACHED ON 840 VENT SHLY 6. NO RESP DISTRESS NOTED. PT TOLERATING VENT SETTINGS. SX'D FOR SML AMT OF WALKER THICK SECRETIONS. VENT ALARMS SET AND AUDIBLE. AMBU BAG AT BEDSIDE. WILL CONTINUE TO MONITOR. Addendum: 10/05/17 at 1999 by CRISTOBAL VALLADARES RT Amended: Links added.
[2017-10-05] MEDS ORDERED: COLISTIMETHATE SODIUM 150 MG VIAL ONE (20:18)
[2017-10-05] MEDS: COLISTIMETHATE SODIUM 75 MG in IV NS 0.9% 50 ML IV SCH (20:33)
--- NOTE | 2017-10-05 23:40 | NUR ---
GRAPHIC ART DESIGNER DURING EVENING CARE, PT WAS NOTED TO HAVE A DISLODGED FLEXISEAL. NEW FLEXISEAL WAS INSERTED DUE TO DIARRHEA AND SKIN PROTECTION. WILL CONTINUE TO MONITOR.
[2017-10-06] VITALS (36 sets, daily range): BP systolic 90–130; BP diastolic 46–70
[2017-10-06] MEDS: METRONIDAZOLE 250 MG TABLET PEG SCH ×5 (00:06→23:36)
[2017-10-06] MEDS: RENAL NOVASOURCE 1,000 ML BOTTLE GT PRN (01:50)
[2017-10-06 05:26] LABS: EOSINOPHILS % (AUTO) 0.1 % (0.0-6.0); HEMATOCRIT 23 % (33-45); HEMOGLOBIN 7.8 g/dL (11.5-14.8); LYMPHOCYTES # (AUTO) 0.6 /CMM (0.8-4.8); LYMPHOCYTES % (AUTO) 3.7 % (20.0-44.0); MEAN CORPUSCULAR HEMOGLOBIN 30 PG (26.0-33.0); MEAN CORPUSCULAR HGB CONC 33 g/dl (31.0-36.0); MEAN CORPUSCULAR VOLUME 90 fL (82-100); MONOCYTES # (AUTO) 0.1 /CMM (0.1-1.30); MONOCYTES % (AUTO) 0.8 % (2.0-12.0); NEUTROPHILS # (AUTO) 14.3 /CMM (1.8-8.9); NEUTROPHILS % (AUTO) 95.4 % (43.0-81.0); PLATELET COUNT (AUTO) 110 /CMM (150-450); RDW COEFFICIENT OF VARIATION 19.6 (11.5-15.0); WHITE BLOOD COUNT (AUTO) 14.9 K/uL (4.3-11.0)
[2017-10-06 05:41] LABS: CALCIUM, SERUM 7.7 mg/dL (8.5-10.1); CARBON DIOXIDE 22 mmol/L (21-32); CHLORIDE 106 mmol/L (98-107); CREATININE 1.5 mg/dL (0.6-1.3); GLUCOSE 134 mg/dL (74-106); MAGNESIUM 1.8 mg/dL (1.8-2.4); PHOSPHORUS 2.8 mg/dL (2.5-4.9); POTASSIUM 3.1 mmol/L (3.5-5.1); SODIUM SERUM 139 mmol/L (136-145); UREA NITROGEN, BLOOD 33 mg/dL (7-18)
--- NOTE | 2017-10-06 07:19 | NUR ---
Female trach pt received on mechanical vent. Pt trach is secure. Vent is plugged into a red outlet, alarms are set and audible, and BVM is at bedside. Addendum: 10/06/17 at 0720 by CADEN ZUÑIGA RT Amended: Links added.
[2017-10-06] MEDS: MEROPENEM 500 MG in IV NS 0.9% 50 ML IV SCH ×2 (07:50→21:21)
[2017-10-06] MEDS: HYDROCORTISONE SOD SUCCINATE 100 MG/2 ML VIAL IV SCH ×3 (09:01→17:59)
[2017-10-06] MEDS: LINEZOLID RTU BAG 600 MG in PREMIX 1 EA IV SCH ×2 (09:01→23:09)
[2017-10-06] MEDS: MUPIROCIN OINT 2% 22 GM TUBE SCH ×2 (09:02→21:21)
[2017-10-06] MEDS: HYDROGEL DRESSING 90 GM TUBE TP SCH (09:02)
[2017-10-06] MEDS: VIT B CMPLX 3/FA/VIT C/BIOTIN 1 TAB TABLET PO SCH (09:02)
[2017-10-06] MEDS: POTASSIUM CL. PREMIX PERIPHER. 50 ML IV SCH ×6 (09:10→16:08)
[2017-10-06] MEDS: IV NS 0.9% 1,000 ML IV PRN ×2 (11:01→21:20)
[2017-10-06] MEDS: PANTOPRAZOLE 40 MG VIAL IV SCH (11:24)
--- NOTE | 2017-10-06 17:30 | NUR ---
REAL ESTATE MARKETING COORDINATOR- Report given to Soon charge nurse in [facility]. Pt to transfer to [facility]. 1800- Pt transferred to [facility], Room 117-1 in stable condition.
--- NOTE | 2017-10-06 18:00 | NUR ---
RN [facility] NOTE: RECEIVED PATIENT FROM ICU TO ROOM 117-1, ON STABLE CONDITION. ASLEEP, AND RESPONDS TO TACTILE STIMULI. RESPIRATION EVEN AND UNLABORED. VENT-TRACH DEPENDENT SATURATING 97%-99%. ON TELEMONITOR SR=69. NO FACIAL GRIMACING NOTED. HOB ELEVATED. GT FEEDING OF NOVASOURCE RENAL @35CC/HR, TOLERATING IT. 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 (R) INTERNAL JUGULAR IV CENTRAL LINE NOTED PATENT AND INTACT W/ TRANSPARENT DRESSING. NS@80ML/HR BEING INFUSED. NOTED W/ GENERALIZED EDEMA. FLEXISEAL IN PLACED W/ LIQUID BROWN STOOL 100CC NOTED. BED ALARM AND LOCKED AT ALL TIMES. WILL REPORT TO PM SHIFT NURSE FOR CONTINUITY OF CARE.
--- NOTE | 2017-10-06 19:30 | NUR ---
RN NOTE RECEIVED ENDORSEMENT FROM AM SHIFT. PATIENT IS ON CONTACT ISOLATION FOR VRE WOUND AND MRSA NARES. PATIENT WITH NO DISTRESS OBSERVED AND RESTING COMFORTABLY. ON MECH VENT VIA TRACH, TOLERATING WELL, SATURATION AT 100%. FLEXISEAL IN PLACE, NOTED TO BE LEAKING, WILL ASSESS AND PROVIDE PM CARE/BEDBATH SOON POSSIBLE. GTF ORDERED, TOLERATING WELL, NO RESIDUAL NOTED. R IJ TRIPLE LUMEN INTACT, IVF ORDERED. SAFETY AND COMFORT ENSURED. BED IN LOW AND LOCKED POSITION. WILL MONITOR CLOSELY.
--- NOTE | 2017-10-06 20:00 | NUR ---
RN NOTE PATIENT'S TEMP NOTED TO BE 95.0 AXILLARY. RECHECKED AND UNABLE TO BE APPRECIATED VIA ORAL AND AXILLARY ROUTE. RECTAL TEMP CHECKED AND NOTED PATIENT'S TEMP TO BE 91.6. BEDBATH GIVEN. WOUND TREATMENT RENDERED. TRACH CARE DONE. FLEXISEAL SECURED AND FLUSHED, NOTED TO BE IN PLACE AND INTACT. PATIENT REPOSITIONED. WARM BLANKET AND BEAR HUGGER PLACED. WILL MONITOR CLOSELY.
--- NOTE | 2017-10-06 20:11 | NUR ---
RCVD PT ON VENT WITH NOTED SETTINGS. SUCTIONED MODERATE AMOUNT OF YELLOW THICK SECRETIONS. VENT PLUGGED INTO RED OUTLET, VENT ALARM WORKING AND AUDIBLE. AMBU BAG AT BEDSIDE, WILL CONTINUE TO MONITOR THE PT.
[2017-10-06] MEDS: COLISTIMETHATE SODIUM 75 MG in IV NS 0.9% 50 ML IV SCH (21:51)
[2017-10-07] VITALS: BP 95/54
--- NOTE | 2017-10-07 00:30 | NUR ---
RN NOTE PATIENT WAS TURNED AND REPOSITIONED. UPON REPOSITIONING, PATIENT'S FLEXISEAL NOTED TO BE DISLODGED. ATTEMPTED TO REPLACE FLEXISEAL, HOWEVER WITH EACH INFLATION OF THE BALLOON, IT WAS NOTED THAT THE WHOLE BALLOON WITH FLUID INSIDE SLIDES OUT FROM PATIENT'S RECTUM. OBSERVED THAT PATIENT IS UNABLE TO HOLD THE FLEXISEAL BALLOON. CNLIBBY, MADE AWARE. FLEXISEAL OPTED TO BE REMOVED AT THIS TIME. WILL ENDORSE ACCORDINGLY TO F/UP WITH MD. WILL KEEP PATIENT CLEAN AND DRY. DIARRHEA STILL ONGOING.
[2017-10-07 04:00] VITALS: BP 94/44
[2017-10-07] MEDS: METRONIDAZOLE 250 MG TABLET PEG SCH ×4 (05:48→23:08)
[2017-10-07 06:23] LABS: HEMATOCRIT 21 % (33-45); HEMOGLOBIN 7.2 g/dL (11.5-14.8); LYMPHOCYTES # (AUTO) 0.4 /CMM (0.8-4.8); LYMPHOCYTES % (AUTO) 2.7 % (20.0-44.0); MEAN CORPUSCULAR HEMOGLOBIN 31 PG (26.0-33.0); MEAN CORPUSCULAR HGB CONC 34 g/dl (31.0-36.0); MEAN CORPUSCULAR VOLUME 90 fL (82-100); MONOCYTES # (AUTO) 0.3 /CMM (0.1-1.30); MONOCYTES % (AUTO) 2.3 % (2.0-12.0); NEUTROPHILS # (AUTO) 12.5 /CMM (1.8-8.9); PLATELET COUNT (AUTO) 105 /CMM (150-450); RDW COEFFICIENT OF VARIATION 19.3 (11.5-15.0); RED BLOOD CELL COUNT(AUTO) 2.34 MIL/uL (4.0-5.2); WHITE BLOOD COUNT (AUTO) 13.1 K/uL (4.3-11.0)
[2017-10-07 06:48] LABS: CALCIUM, SERUM 7.4 mg/dL (8.5-10.1); CARBON DIOXIDE 21 mmol/L (21-32); CHLORIDE 107 mmol/L (98-107); CREATININE 1.6 mg/dL (0.6-1.3); GLUCOSE 95 mg/dL (74-106); MAGNESIUM 1.7 mg/dL (1.8-2.4); PHOSPHORUS 3.2 mg/dL (2.5-4.9); POTASSIUM 3.4 mmol/L (3.5-5.1); SODIUM SERUM 140 mmol/L (136-145); UREA NITROGEN, BLOOD 41 mg/dL (7-18)
--- NOTE | 2017-10-07 06:48 | NUR ---
RN NOTE PATIENT WITH NO DISTRESS. BEAR HUGGER IN PLACE. DIARRHEA ONGOING, CHANGED FREQUENTLY. GTF TOLERATED WELL. SR ON TELE. VENT TOLERATED WELL. WOUND TREATMENT RENDERED. TRACH CARE DONE. SAFETY AND COMFORT ENSURED. TURNED AND REPOSITIONED. WILL ENDORSE ACCORDINGLY FOR CONTINUITY OF CARE.
[2017-10-07 08:00] VITALS: BP 96/40
[2017-10-07] MEDS: MEROPENEM 500 MG in IV NS 0.9% 50 ML IV SCH ×2 (08:37→20:10)
[2017-10-07] MEDS: VIT B CMPLX 3/FA/VIT C/BIOTIN 1 TAB TABLET PO SCH (08:38)
[2017-10-07] MEDS: PANTOPRAZOLE 40 MG VIAL IV SCH (08:38)
[2017-10-07] MEDS: HYDROCORTISONE SOD SUCCINATE 100 MG/2 ML VIAL IV SCH ×3 (08:38→17:30)
[2017-10-07] MEDS: MUPIROCIN OINT 2% 22 GM TUBE SCH ×2 (08:39→20:16)
[2017-10-07] MEDS: LINEZOLID RTU BAG 600 MG in PREMIX 1 EA IV SCH ×2 (08:39→20:15)
[2017-10-07] MEDS: HYDROGEL DRESSING 90 GM TUBE TP SCH (08:39)
--- NOTE | 2017-10-07 09:20 | NUR ---
TD RN NOTE SPOKE TO DR. LOTT REGARDING DAUGHTER CONCERNS WITH BREATHING. DR. LOTT ORDERED STAT ABG. RT NOTIFIED WELL DAUGHTER @ BEDSIDE.
[2017-10-07 12:00] VITALS: BP_SYST 96; BP_SYST 99; BP_DIAS 36
[2017-10-07] MEDS: IV NS 0.9% 1,000 ML IV PRN (12:24)
[2017-10-07 16:00] VITALS: BP 95/41
[2017-10-07] MEDS: RENAL NOVASOURCE 1,000 ML BOTTLE GT PRN (19:09)
--- NOTE | 2017-10-07 19:55 | NUR ---
PT RECEIVED ON VENT WITH SETTINGS. NO RESPIRATORY DISTRESS NOTED ATT. VENT CHECKED PLUGGED INTO RED OUTLET, VENT ALARMS CHECKED FOUND TO BE ON AUDIBLE, AND WITHIN RANGE. BVM AT BEDSIDE. PT SX PRN
[2017-10-07 20:00] VITALS: BP 94/49
[2017-10-07] MEDS: COLISTIMETHATE SODIUM 75 MG in IV NS 0.9% 50 ML IV SCH (21:15)
[2017-10-08] VITALS (10 sets, daily range): BP systolic 90–113; BP diastolic 40–67
[2017-10-08] MEDS: IV NS 0.9% 1,000 ML IV PRN ×2 (03:15→21:03)
[2017-10-08] MEDS: METRONIDAZOLE 250 MG TABLET PEG SCH ×3 (05:02→17:29)
[2017-10-08 06:58] LABS: BASOPHILS % (AUTO) 0.1 % (0.0-2.0); LYMPHOCYTES # (AUTO) 0.5 /CMM (0.8-4.8); LYMPHOCYTES % (AUTO) 3.2 % (20.0-44.0); MEAN CORPUSCULAR HEMOGLOBIN 30 PG (26.0-33.0); MEAN CORPUSCULAR HGB CONC 34 g/dl (31.0-36.0); MEAN CORPUSCULAR VOLUME 89 fL (82-100); MONOCYTES # (AUTO) 0.3 /CMM (0.1-1.30); MONOCYTES % (AUTO) 2.2 % (2.0-12.0); NEUTROPHILS # (AUTO) 13.2 /CMM (1.8-8.9); NEUTROPHILS % (AUTO) 94.5 % (43.0-81.0); PLATELET COUNT (AUTO) 111 /CMM (150-450); RDW COEFFICIENT OF VARIATION 19.7 (11.5-15.0); RED BLOOD CELL COUNT(AUTO) 2.28 MIL/uL (4.0-5.2)
--- NOTE | 2017-10-08 07:14 | NUR ---
RT PT RECEIVED TRACHED ON THE VENT WITH NOTED SETTINGS. PT IS AWAKE BUT DOES NOT FOLLOW COMMANDS. VENT ALARMS ARE SET AND AUDIBLE WITH BVM BY BEDSIDE. PORTRAIT ARTIST CUFF PRESSURE NOTED. VENT IS PLUGGED INTO RED OUTLET. NO RESPIRATORY DISTRESS NOTED AT THIS TIME, WILL CONTINUE TO MONITOR. Addendum: 10/08/17 at 1813 by TORY FLORES RT Amended: Links added.
[2017-10-08 07:18] LABS: HEMATOCRIT 20 % (33-45); HEMOGLOBIN 6.8 g/dL (11.5-14.8)
[2017-10-08 07:37] LABS: CALCIUM, SERUM 7.5 mg/dL (8.5-10.1); CARBON DIOXIDE 20 mmol/L (21-32); CHLORIDE 108 mmol/L (98-107); CREATININE 1.8 mg/dL (0.6-1.3); GLUCOSE 116 mg/dL (74-106); MAGNESIUM 1.8 mg/dL (1.8-2.4); POTASSIUM 3.5 mmol/L (3.5-5.1); SODIUM SERUM 140 mmol/L (136-145); UREA NITROGEN, BLOOD 56 mg/dL (7-18)
--- NOTE | 2017-10-08 07:57 | NUR ---
[facility] RN NOTE CALLED DR. JAUREGUI REPORTED H/H 6.8. ORDERED 2 UNITS PRBC. PT IS ON LINE HOLIDAY AWARE.
[2017-10-08] MEDS: PANTOPRAZOLE 40 MG VIAL IV SCH (08:56)
[2017-10-08] MEDS: HYDROCORTISONE SOD SUCCINATE 100 MG/2 ML VIAL IV SCH ×3 (08:56→17:29)
[2017-10-08] MEDS: MEROPENEM 500 MG in IV NS 0.9% 50 ML IV SCH ×2 (08:58→20:29)
[2017-10-08] MEDS: LINEZOLID RTU BAG 600 MG in PREMIX 1 EA IV SCH ×2 (08:58→21:03)
[2017-10-08] MEDS: VIT B CMPLX 3/FA/VIT C/BIOTIN 1 TAB TABLET PO SCH (08:59)
[2017-10-08] MEDS: Z GUARD REMEDY 2 OZ OINT TP PRN (08:59)
[2017-10-08] MEDS: HYDROGEL DRESSING 90 GM TUBE TP SCH (09:00)
[2017-10-08] MEDS: MUPIROCIN OINT 2% 22 GM TUBE SCH ×2 (09:01→21:06)
[2017-10-08 09:29] LABS: BAND % (MANUAL) 3 % (0.0-5.0); LYMPHOCYTES % (MANUAL) 1 % (16-48); MONOCYTES % (MANUAL) 5 % (0-11.0); NEUTROPHILS % (MANUAL) 91 (42-76)
--- NOTE | 2017-10-08 13:54 | NUR ---
CLAY HOUSE WORKER NOTE SPOKE TO SANDEE DE LA CRUZ N.P. CLARIFIED ORDERED ONLY 1 UNIT OF BLOOD FOR H/H 6.8. REPORT EXCORIATION OF PERIANAL AREA DUE TO DIARRHEA C-DIFF . PICTURE TAKEN AND PUT IN CHART ORDERED WOUND CONSULT. UNABLE TO USE FLEXI SEAL ON PATIENT DUE TO SPHINCTER MUSCLE HOLDING BALLOON IN PLACE.
--- NOTE | 2017-10-08 18:45 | NUR ---
PRODUCTION BROACHER NOTE S/P 1 UNIT PRBC. PT TOLERATED UNIT WELL. NO REACTIONS NOTED THROUGHOUT PRBC TRANSFUSION. V/S STABLE TO PT BASELINE. NO SOB NOTED.
--- NOTE | 2017-10-08 19:30 | NUR ---
RN INITIAL NOTES RECEIVED PATIENT IN BED, EYES CLOSED, OBTUNDED AT BASELINE. TRACH MIDLINE AND INTACT, ON MECHANICAL VENTILATOR AT PRESCRIBED SETTINGS, TOLERATING WELL, FREE FROM ANY S/S OF RESPIRATORY DISTRESS. ON TELEMETRY MONITORING, REVEALING SINUS RHYTHM, HR = 71 AT THIS TIME. NOTED WITH RIJ TRIPLE LUMEN CATHETER, ALL PORTS FLUSHING WELL, NOTED WITH GOOD VENOUS RETURN. GT PATENT AND INTACT, RUNNING NOVASOURCE RENAL @ 35ML/HR, TOLERATING WELL, NO GASTRIC RESIDUALS. CALL LIGHT LEFT WITHIN REACH, BED IN LOWEST AND LOCKED POSITION. WILL CONTINUE TO CLOSELY MONITOR. ISOLATION PRECAUTIONS STRICTLY OBSERVED
[2017-10-08] MEDS: COLISTIMETHATE SODIUM 75 MG in IV NS 0.9% 50 ML IV SCH (19:41)
[2017-10-09] VITALS: BP 107/62
--- NOTE | 2017-10-09 01:43 | NUR ---
PT RECEIVED TRACHED ON THE VENT WITH NOTED SETTIGNS. VENT ALARMS ARE SET AND AUDIBLE WITH BVM BY BEDSIDE. DIRECTOR INVESTOR RELATIONS CUFF PRESSURE NOTED. VENT IS PLUGGED INTO RED OUTLET. NO RESPIRATORY DISTRESS NOTED AT THIS TIME, WILL CONTINUE TO MONITOR. Addendum: 10/09/17 at 0143 by ARIELA CHAVEZ RT Amended: Links added.
[2017-10-09 04:00] VITALS: BP 105/60
--- NOTE | 2017-10-09 07:00 | NUR ---
RN CLOSING NOTES PATIENT RESTING IN BED, APPEARS COMFORTABLE, HAD 3 EPISODES OF DIARRHEA THROUGHOUT SHIFT, WOUND CARE RENDERED. LEFT PATIENT CLEAN AND DRY. WILL ENDORSE THE PATIENT TO THE AM SHIFT NURSE FOR NICK
[2017-10-09 07:10] LABS: HEMATOCRIT 22 % (33-45); HEMOGLOBIN 7.5 g/dL (11.5-14.8); LYMPHOCYTES # (AUTO) 0.5 /CMM (0.8-4.8); LYMPHOCYTES % (AUTO) 3.7 % (20.0-44.0); MEAN CORPUSCULAR HEMOGLOBIN 31 PG (26.0-33.0); MEAN CORPUSCULAR HGB CONC 34 g/dl (31.0-36.0); MEAN CORPUSCULAR VOLUME 90 fL (82-100); MONOCYTES # (AUTO) 0.1 /CMM (0.1-1.30); MONOCYTES % (AUTO) 0.8 % (2.0-12.0); NEUTROPHILS # (AUTO) 12.5 /CMM (1.8-8.9); NEUTROPHILS % (AUTO) 95.5 % (43.0-81.0); PLATELET COUNT (AUTO) 98 /CMM (150-450); RDW COEFFICIENT OF VARIATION 18.2 (11.5-15.0); RED BLOOD CELL COUNT(AUTO) 2.41 MIL/uL (4.0-5.2); WHITE BLOOD COUNT (AUTO) 13.1 K/uL (4.3-11.0)
--- NOTE | 2017-10-09 07:23 | NUR ---
WOUND CARE CONSULT WOUND CARE RECEIVED CONSULT FOR PERIANAL EXCORIATION DUE TO DIARRHEA. WOUND CARE WILL DEFER TO SURGICAL TEAM WHO ARE CURRENTLY FOLLOWING.
--- NOTE | 2017-10-09 07:32 | NUR ---
RN NOTES RECEIVED PT FROM LEAD BURNER SUPERVISOR, CHRONIC VENT/TRACH DEPENDENT, OBTUNDED. TOLERATING VENT SETTINGS NO SOB OR DISTRESS NOTED. SR ON THE TELE ALIN HR 85. GTF AT 35ML/HR. RIGHT IJ WITH IVF AT 80ML/HR. BED LOCKED AND IN LOWEST POSITION, CALL LIGHT WITHIN REACH, SIDE RAILS UPX3. WILL CONT TO ALIN.
[2017-10-09 07:34] LABS: CALCIUM, SERUM 7.4 mg/dL (8.5-10.1); CARBON DIOXIDE 19 mmol/L (21-32); CHLORIDE 109 mmol/L (98-107); CREATININE 1.9 mg/dL (0.6-1.3); GLUCOSE 103 mg/dL (74-106); MAGNESIUM 1.8 mg/dL (1.8-2.4); POTASSIUM 3.5 mmol/L (3.5-5.1); SODIUM SERUM 141 mmol/L (136-145); UREA NITROGEN, BLOOD 70 mg/dL (7-18)
[2017-10-09 08:00] VITALS: BP 119/58
[2017-10-09] MEDS: MEROPENEM 500 MG in IV NS 0.9% 50 ML IV SCH ×2 (08:20→20:41)
[2017-10-09] MEDS: PANTOPRAZOLE 40 MG VIAL IV SCH (08:20)
[2017-10-09] MEDS: HYDROCORTISONE SOD SUCCINATE 100 MG/2 ML VIAL IV SCH ×2 (08:21→16:14)
[2017-10-09] MEDS: MUPIROCIN OINT 2% 22 GM TUBE SCH ×2 (08:21→21:26)
[2017-10-09] MEDS: VIT B CMPLX 3/FA/VIT C/BIOTIN 1 TAB TABLET PO SCH (08:21)
[2017-10-09] MEDS: HYDROGEL DRESSING 90 GM TUBE TP SCH (08:21)
[2017-10-09 08:32] LABS: BAND % (MANUAL) 7 % (0.0-5.0); LYMPHOCYTES % (MANUAL) 1 % (16-48); MONOCYTES % (MANUAL) 1 % (0-11.0); NEUTROPHILS % (MANUAL) 91 (42-76)
[2017-10-09] MEDS: LINEZOLID RTU BAG 600 MG in PREMIX 1 EA IV SCH ×2 (09:45→21:26)
[2017-10-09 10:17] LABS: ABG BASE EXCESS -9.5 mmol/L; ABG OXYGEN SATURATION 96.8 % (92.0-98.5); ABG PCO2 29.9 mmHg (35.0-45.0); ABG PH 7.331 (7.350-7.450); ABG PO2 101.3 mmHg (75.0-100.0); AaDO2 77.5 mmHg; COHb 0.1 % (0.5-1.5); MetHb 0.8 % (0.0-1.5); O2Hb 95.9 % (94.0-97.0); PEEP,BG 5 cm H2O; SITE, ABG Left Radial; VT, ABG 450 mL
[2017-10-09 12:00] VITALS: BP 101/50
[2017-10-09] MEDS: CITRIC ACID/SODIUM CITRATE (BICITRA)15 ML UDC PO SCH ×3 (13:43→21:25)
--- NOTE | 2017-10-09 15:15 | NUR ---
RN NOTES EGD ORDERED PER LAUNDRY ATTENDANT JESSICA, CONSENT OBTAINED, THEN CANCELLED. DAUGHTER MADE AWARE.
[2017-10-09 16:00] VITALS: BP 108/52
--- NOTE | 2017-10-09 19:30 | NUR ---
PUBLIC ACCOUNTANT INITIAL NOTE PT RECEIVED SLEEPING IN BED. OBTUNDED. ON MECH VENT WITH SETTINGS WELL TOLERATED AND SATURATING WELL. TELE- SINUS RHYTHM 80'S. GTUBE FEEDING WELL TOLERATED WITHOUT RESIDUALS NOTED. HOB ELEVATED AND ON ASPIRATION PRECAUTIONS. IV RIJ TLC CLEAN, DRY AND PATENT WITH FLUIDS INFUSING. ISOLATION PRECAUTIONS OBSERVED. WILL CONTINUE TO MONITOR.
[2017-10-09 20:00] VITALS: BP 117/65
[2017-10-09] MEDS: COLISTIMETHATE SODIUM 75 MG in IV NS 0.9% 50 ML IV SCH (20:30)
[2017-10-10] VITALS (39 sets, daily range): BP systolic 63–148; BP diastolic 27–77
[2017-10-10] MEDS: RENAL NOVASOURCE 1,000 ML BOTTLE GT PRN (06:01)
[2017-10-10 07:12] LABS: BASOPHILS % (AUTO) 0.1 % (0.0-2.0); EOSINOPHILS # (AUTO) 0.1 /CMM (0.0-0.7); EOSINOPHILS % (AUTO) 0.6 % (0.0-6.0); LYMPHOCYTES # (AUTO) 0.8 /CMM (0.8-4.8); LYMPHOCYTES % (AUTO) 5.9 % (20.0-44.0); MEAN CORPUSCULAR HEMOGLOBIN 31 PG (26.0-33.0); MEAN CORPUSCULAR HGB CONC 34 g/dl (31.0-36.0); MEAN CORPUSCULAR VOLUME 90 fL (82-100); MONOCYTES # (AUTO) 0.3 /CMM (0.1-1.30); MONOCYTES % (AUTO) 1.9 % (2.0-12.0); NEUTROPHILS # (AUTO) 12.7 /CMM (1.8-8.9); NEUTROPHILS % (AUTO) 91.5 % (43.0-81.0); PLATELET COUNT (AUTO) 87 /CMM (150-450); RED BLOOD CELL COUNT(AUTO) 2.26 MIL/uL (4.0-5.2); WHITE BLOOD COUNT (AUTO) 13.9 K/uL (4.3-11.0)
--- NOTE | 2017-10-10 07:15 | NUR ---
SERVICE DISPATCHER NOTES RECEIVED PT ON BED OBTUNDED. ON TELE MONITOR SR. [facility] SATURATING 100. NO SIGN OF RESPI DISTRESS. IV ACCESS ON R IJ NS @ 80ML/HR. NO SIGN OF REDNESS OR PAIN. HEAD OF BED ELEVATED. SIDE RAILS UP. CALL LIGHT WITHIN REACH. BED ALARM ON. WILL CONTINUE TO MONITOR PT CLOSELY.
[2017-10-10 07:23] LABS: HEMATOCRIT 20 % (33-45)
[2017-10-10 07:30] LABS: CALCIUM, SERUM 7.4 mg/dL (8.5-10.1); CARBON DIOXIDE 15 mmol/L (21-32); CHLORIDE 111 mmol/L (98-107); GLUCOSE 109 mg/dL (74-106); MAGNESIUM 1.9 mg/dL (1.8-2.4); PHOSPHORUS 5.6 mg/dL (2.5-4.9); POTASSIUM 3.1 mmol/L (3.5-5.1); SODIUM SERUM 144 mmol/L (136-145)
--- NOTE | 2017-10-10 07:50 | NUR ---
MOTION PICTURE SET UP WORKER CLOSING NOTE PT REMAINED STABLE DURING SHIFT. NO ACUTE DISTRESS NOTED. VENT SETTINGS WELL TOLERATED. KEPT CLEAN AND DRY. HOB ELEVATED. ISOLATION PRECAUTIONS OBSERVED. SUCTIONED NEEDED. REPOSITIONED Q2H. WILL ENDORSE TO NEXT SHIFT FOR CONTINUITY OF CARE.
[2017-10-10 07:54] LABS: UREA NITROGEN, BLOOD 85 mg/dL (7-18)
[2017-10-10] MEDS: MEROPENEM 500 MG in IV NS 0.9% 50 ML IV SCH ×2 (08:01→20:21)
[2017-10-10] MEDS: LINEZOLID RTU BAG 600 MG in PREMIX 1 EA IV SCH ×2 (08:02→20:22)
[2017-10-10] MEDS: CITRIC ACID/SODIUM CITRATE (BICITRA)15 ML UDC PO SCH ×4 (08:02→20:24)
[2017-10-10] MEDS: HYDROCORTISONE SOD SUCCINATE 100 MG/2 ML VIAL IV SCH ×2 (08:02→20:24)
[2017-10-10] MEDS: MUPIROCIN OINT 2% 22 GM TUBE SCH ×2 (08:03→20:24)
[2017-10-10] MEDS: VIT B CMPLX 3/FA/VIT C/BIOTIN 1 TAB TABLET PO SCH (08:03)
[2017-10-10] MEDS: PANTOPRAZOLE 40 MG VIAL IV SCH (08:03)
[2017-10-10] MEDS: HYDROGEL DRESSING 90 GM TUBE TP SCH (08:04)
--- NOTE | 2017-10-10 08:29 | NUR ---
OPHTHALMIC TECHNOLOGIST NOTES HGB 7.0. CHARGE NURSE NOTIFIED.
--- NOTE | 2017-10-10 08:54 | NUR ---
TICKET MARKER NOTES DR GUCCI ORTIZ NOTIFIED REGARDING PT HGB IS 7 AND LOW BLOOD PRESSURE OF 74/34MMHG
[2017-10-10 09:31] LABS: LYMPHOCYTES % (MANUAL) 3 % (16-48); MONOCYTES % (MANUAL) 2 % (0-11.0); NEUTROPHILS % (MANUAL) 95 (42-76)
--- NOTE | 2017-10-10 11:04 | NUR ---
MUSEUM DIRECTOR NOTES BLOOD TRANSFUSION ORDERED. WAITING FOR THE BLOOD BANK.
[2017-10-10] MEDS ORDERED: POTASSIUM CHLORIDE 20 MEQ POWDER PACKET GT SCH (11:30)
--- NOTE | 2017-10-10 11:58 | NUR ---
CAR CLEANING SUPERVISOR NOTES BLOOD TRANSFUSION STARTED. GUCCI ORTIZ NOTIFIED FOR PT LOW BLOOD PRESSURE
--- NOTE | 2017-10-10 13:59 | NUR ---
WORM GROWER NOTES PT TRANSFERRED TO ICU. RECEIVED PT SRIKANTH KIMBLE.
[2017-10-10] MEDS ORDERED: RENAL NOVASOURCE 1,000 ML BOTTLE GT PRN (14:30)
[2017-10-10] MEDS: NOREPINEPHRINE 16 MG in IV D5W 500 ML IV PRN (14:51)
[2017-10-10 15:08] LABS: ABG BASE EXCESS -13.6 mmol/L; ABG OXYGEN SATURATION 96.6 % (92.0-98.5); ABG PCO2 33.8 mmHg (35.0-45.0); ABG PH 7.209 (7.350-7.450); ABG PO2 108.6 mmHg (75.0-100.0); AaDO2 65.6 mmHg; COHb 0.3 % (0.5-1.5); MetHb 0.7 % (0.0-1.5); O2Hb 95.6 % (94.0-97.0); PEEP,BG 0 cm H2O; SITE, ABG Right Radial
--- NOTE | 2017-10-10 15:12 | NUR ---
RT POST ABG RESULTS PER DR LOTT RR INCREASED TO 24. Addendum: 10/10/17 at 1513 by CAMERON JOHNSTON RT Amended: Links added.
--- NOTE | 2017-10-10 18:36 | NUR ---
BATH SOLUTION MAKER NOTE 1400: Received patient from [facility] for low BP, SBP 60's. Transferred via bed, placed on the monitor. Noted with SR 80's. SBP >100 at this time. With blood transfusion ongoing, no any adverse reactions per previous nurse. With trache to vent, tolerated. No respiratory distress noted at this time. Placed flat for now for BP. GT intact. feeding on hold. No residuals noted. Placed on iso prec for VRE and acineto on sacral wound. RIJ TLC intact. 1430: Daughter Elke visited, made aware for patient's condition and POC, all questions and concerns were answered. 1440: Done with blood transfusion, tolerated well. SBP 80's. S/E by Dr. Gillis;eg, with order to start on Levophed. 1500: Started on 2mcg, will titrate as ordered. Placed HOB elevated, restarted GT feeding. 1600: Noted BP >130's, turned off Levo, will continue to monitor. 1830: Changed patient, still noted with loose brown stool as endorsed. Will continue to monitor. Will endorse to next shift. Off pressor, SBP >90's. GT feeding tolerated.
[2017-10-10] MEDS: COLISTIMETHATE SODIUM 75 MG in IV NS 0.9% 50 ML IV SCH (20:21)
[2017-10-11] VITALS (63 sets, daily range): BP systolic 78–174; BP diastolic 45–82
[2017-10-11] MEDS: HYDROCORTISONE SOD SUCCINATE 100 MG/2 ML VIAL IV SCH ×3 (04:37→20:51)
[2017-10-11 05:00] LABS: BASOPHILS # (AUTO) 0.1 /CMM (0.0-0.2); BASOPHILS % (AUTO) 0.7 % (0.0-2.0); EOSINOPHILS % (AUTO) 0.2 % (0.0-6.0); HEMATOCRIT 24 % (33-45); HEMOGLOBIN 8.2 g/dL (11.5-14.8); LYMPHOCYTES # (AUTO) 0.4 /CMM (0.8-4.8); LYMPHOCYTES % (AUTO) 4.2 % (20.0-44.0); MEAN CORPUSCULAR HEMOGLOBIN 31 PG (26.0-33.0); MEAN CORPUSCULAR HGB CONC 34 g/dl (31.0-36.0); MEAN CORPUSCULAR VOLUME 90 fL (82-100); MONOCYTES # (AUTO) 0.1 /CMM (0.1-1.30); MONOCYTES % (AUTO) 1.2 % (2.0-12.0); NEUTROPHILS # (AUTO) 9.7 /CMM (1.8-8.9); NEUTROPHILS % (AUTO) 93.7 % (43.0-81.0); PLATELET COUNT (AUTO) 68 /CMM (150-450); RDW COEFFICIENT OF VARIATION 16.9 (11.5-15.0); RED BLOOD CELL COUNT(AUTO) 2.64 MIL/uL (4.0-5.2); WHITE BLOOD COUNT (AUTO) 10.4 K/uL (4.3-11.0)
[2017-10-11 05:19] LABS: CALCIUM, SERUM 7.7 mg/dL (8.5-10.1); CARBON DIOXIDE 13 mmol/L (21-32); CHLORIDE 111 mmol/L (98-107); CREATININE 2.2 mg/dL (0.6-1.3); GLUCOSE 85 mg/dL (74-106); MAGNESIUM 1.8 mg/dL (1.8-2.4); PHOSPHORUS 5.8 mg/dL (2.5-4.9); POTASSIUM 3.1 mmol/L (3.5-5.1); SODIUM SERUM 143 mmol/L (136-145)
[2017-10-11 05:21] LABS: UREA NITROGEN, BLOOD 93 mg/dL (7-18)
--- NOTE | 2017-10-11 05:29 | NUR ---
RT PT FOUND ON [facility] VENT WITH NOTED SETTING. VENT ALARMS SET AND AUDIBLE, VENT TO RED OUTLET. AMBU BAG AT [facility]. NO SOB OR RESP DISTRESS NOTED ON SHIFT. Addendum: 10/11/17 at 0531 by SALENA BYRD RT Amended: Links added.
[2017-10-11 05:54] LABS: BAND % (MANUAL) 3 % (0.0-5.0); LYMPHOCYTES % (MANUAL) 4 % (16-48); MONOCYTES % (MANUAL) 2 % (0-11.0); NEUTROPHILS % (MANUAL) 91 (42-76)
--- NOTE | 2017-10-11 07:30 | NUR ---
RN NOTES RECEIVED PATIENT ON MECH VENT WITH BREATHING NORMAL, EVEN AND UNLABORED. NO SOB NOTED. NO ACUTE DISTRESS NOTED. VENT SETTING REVIEWED AND VERIFIED. TOLERATED WELL. AFEBRILE. TELE MONITOR REVEALS SR. RIJ IS PATENT AND INTACT. ON GT FEED. POSITIVE PLACEMENT. ASPIRATION PRECAUTION TAKEN. HOB ELEVATED. KEPT CLEAN, DRY AND COMFORTABLE. ALL NEEDS ATTENDED. SAFETY MEASURE OBSERVED. CALL LIGHT WITH IN REACH. WILL CONT TO MONITOR.
[2017-10-11] MEDS: MEROPENEM 500 MG in IV NS 0.9% 50 ML IV SCH ×2 (08:06→20:50)
[2017-10-11] MEDS ORDERED: VIT B CMPLX 3/FA/VIT C/BIOTIN 1 TAB TABLET PO SCH (09:00)
[2017-10-11] MEDS: CITRIC ACID/SODIUM CITRATE (BICITRA)15 ML UDC PO SCH ×4 (09:25→20:50)
[2017-10-11] MEDS: VIT B CMPLX 3/FA/VIT C/BIOTIN 1 TAB TABLET PO SCH (09:25)
[2017-10-11] MEDS: IV NS 0.9% 1,000 ML IV PRN (09:25)
[2017-10-11] MEDS: HYDROGEL DRESSING 90 GM TUBE TP SCH (09:26)
[2017-10-11] MEDS: LINEZOLID RTU BAG 600 MG in PREMIX 1 EA IV SCH (09:26)
[2017-10-11] MEDS: MUPIROCIN OINT 2% 22 GM TUBE SCH ×2 (09:27→20:58)
[2017-10-11] MEDS ORDERED: POTASSIUM CHLORIDE 20 MEQ POWDER PACKET GT SCH (11:45)
--- NOTE | 2017-10-11 12:30 | NUR ---
RN NOTES PATIENT NOTED WITH BP 79/49. LEVOPHED DRIP RESTARTED AT 2MCG/MIN.
[2017-10-11] MEDS: ONDANSETRON HCL/PF 4 MG/2 ML VIAL IVP PRN (12:47)
[2017-10-11] MEDS ORDERED: PROMETHAZINE HCL 25 MG/ML AMPUL IV PRN (14:30)
[2017-10-11 15:31] LABS: ABG BASE EXCESS -15.2 mmol/L; ABG PCO2 17.1 mmHg (35.0-45.0); ABG PH 7.327 (7.350-7.450); ABG PO2 157.1 mmHg (75.0-100.0); AaDO2 36.7 mmHg; COHb 0.3 % (0.5-1.5); MetHb 0.7 % (0.0-1.5); SITE, ABG Right Radial; VT, ABG 450 mL
--- NOTE | 2017-10-11 19:30 | NUR ---
RN NOTES PATIENT ENDORSED TO NEXT SHIFT IN STABLE CONDITION FOR CONTINUITY OF CARE.
--- NOTE | 2017-10-11 19:30 | NUR ---
RN/ ICU NOTES: RECEIVED PT. IN BED W/ HOB ELEVATED . OBTUNDED. NONVERBAL. RESPONSIVE TO VERBAL TACTILE ONLY. ON MECHANICAL VENTILATOR TOLERATING SETTING WELL. NO FACIAL GRIMACES OR MOANING NOTED. MAINTAINED ASPIRATION AND ISOLATION PRECAUTION. ON GTF CLAMPED. PT. HAD 2 EPISODES OF EMESIS PER AM NURSE. WILL RESUME FEEDING LATER. ON TELE MONITOR SR. W/ RIJ TLC PATENT AND INTACT W/ DRESSING C/D/I W/ NO S/S OF INFECTION/INFILTRATION NOTED. W/ NS @ 125 ML/HR GOING. WILL CONTINUE TO MONITOR.
[2017-10-11 19:43] LABS: BILIRUBIN,DIRECT 0.5 mg/dL (0.0-0.2)
[2017-10-11] MEDS: NOREPINEPHRINE 16 MG in IV D5W 500 ML IV PRN (20:12)
[2017-10-11] MEDS ORDERED: IV NS 0.9% 500 ML IV ONE (20:30)
--- NOTE | 2017-10-11 20:30 | NUR ---
RN/ICU NOTES: LAB CALLED W/ LACTIC ACID 7.8. TRENDING DOWN FROM 8.2. BOLUS NS 500 ML GIVEN PER ORDER.
[2017-10-11] MEDS: PANTOPRAZOLE 40 MG VIAL IV SCH (20:51)
[2017-10-11] MEDS: LINEZOLID 600 MG TABLET PO SCH (20:51)
--- NOTE | 2017-10-11 21:00 | NUR ---
RN/ICU NOTES: GTF RESIDUAL CHECKED W/ 130 ML. GTF ON HOLD. WILL CONTINUE TO MONITOR.
--- NOTE | 2017-10-11 21:30 | NUR ---
pt received on vent via charted route and settings. ambu bag at bedside alarms set and audible. disconnect alarms checked. vent plugged into red outlet. tolerating vent settings at ths time. will continue to monitor Addendum: 10/11/17 at 2131 by SHAHIDA SMITH RT Amended: Links added.
--- NOTE | 2017-10-11 22:00 | NUR ---
RN/ICU NOTES: GASTRIC RESIDUAL CHECKED 115 ML. GTF STILL ON HOLD.
[2017-10-11] MEDS: COLISTIMETHATE SODIUM 75 MG in IV NS 0.9% 50 ML IV SCH (22:03)
--- NOTE | 2017-10-11 23:26 | NUR ---
RN/ ICU NOTES: GASTRIC RESIDUAL CHECKED 90 ML. GTF STILL ON HOLD.
[2017-10-12] VITALS (98 sets, daily range): BP systolic 65–144; BP diastolic 21–76
--- NOTE | 2017-10-12 02:00 | NUR ---
RN/ICU NOTES: GASTRIC RESIDUAL CHECKED IT WAS 35 ML. RESUMED GTF AT 25 ML/HR. WILL CONTINUE TO MONITOR.
[2017-10-12] MEDS: HYDROCORTISONE SOD SUCCINATE 100 MG/2 ML VIAL IV SCH ×3 (04:03→20:32)
--- NOTE | 2017-10-12 05:00 | NUR ---
RN/ICU NOTES: AM LABS DONE.
[2017-10-12 05:25] LABS: HEMATOCRIT 26 % (33-45); HEMOGLOBIN 8.6 g/dL (11.5-14.8); LYMPHOCYTES # (AUTO) 0.4 /CMM (0.8-4.8); LYMPHOCYTES % (AUTO) 2.4 % (20.0-44.0); MEAN CORPUSCULAR HEMOGLOBIN 30 PG (26.0-33.0); MEAN CORPUSCULAR HGB CONC 33 g/dl (31.0-36.0); MEAN CORPUSCULAR VOLUME 91 fL (82-100); MONOCYTES # (AUTO) 0.1 /CMM (0.1-1.30); MONOCYTES % (AUTO) 0.5 % (2.0-12.0); NEUTROPHILS % (AUTO) 97.1 % (43.0-81.0); PLATELET COUNT (AUTO) 113 /CMM (150-450); RDW COEFFICIENT OF VARIATION 17.1 (11.5-15.0); RED BLOOD CELL COUNT(AUTO) 2.86 MIL/uL (4.0-5.2); WHITE BLOOD COUNT (AUTO) 14.4 K/uL (4.3-11.0)
[2017-10-12 05:28] LABS: CALCIUM, SERUM 7.9 mg/dL (8.5-10.1); CHLORIDE 113 mmol/L (98-107); CREATININE 2.4 mg/dL (0.6-1.3); GLUCOSE 123 mg/dL (74-106); MAGNESIUM 1.8 mg/dL (1.8-2.4); POTASSIUM 3.5 mmol/L (3.5-5.1); SODIUM SERUM 144 mmol/L (136-145)
[2017-10-12 05:37] LABS: CARBON DIOXIDE 9 mmol/L (21-32); UREA NITROGEN, BLOOD 101 mg/dL (7-18)
--- NOTE | 2017-10-12 06:00 | NUR ---
RN/ICU NOTES: CHARGE NURSE ED REPORTED CO2 9/BUN 101. WILL ENDORSE AM SHIFT NURSE TO F/U REGARDING LABS.
[2017-10-12] MEDS: IV NS 0.9% 1,000 ML IV PRN ×2 (06:52→07:01)
--- NOTE | 2017-10-12 07:14 | NUR ---
RN/ICU NOTES: NO ACUTE CHANGES NOTED DURING THIS SHIFT. REPORT GIVEN TO AM NURSE FOR NICK.
--- NOTE | 2017-10-12 07:45 | NUR ---
RT PATIENT REC[facility]D [facility] WITH SETTINGS SET BY . VENT ALARMS CHECKED + AUDIBLE. CUFF PRESSURE CHECKED DISC PAD GRINDING MACHINE FEEDER. SX'D WITH JOSE A ANDUJAR. B/S DIM COARSE. AMBU BAG AT HOB Addendum: 10/12/17 at 1757 by CAMERON JOHNSTON RT Amended: Links added.
[2017-10-12] MEDS: CITRIC ACID/SODIUM CITRATE (BICITRA)15 ML UDC PO SCH (08:40)
[2017-10-12] MEDS: PANTOPRAZOLE 40 MG VIAL IV SCH ×2 (08:40→20:32)
[2017-10-12] MEDS: LINEZOLID 600 MG TABLET PO SCH (08:40)
[2017-10-12] MEDS: VIT B CMPLX 3/FA/VIT C/BIOTIN 1 TAB TABLET PO SCH (08:40)
[2017-10-12] MEDS: MEROPENEM 500 MG in IV NS 0.9% 50 ML IV SCH ×2 (08:40→19:15)
[2017-10-12] MEDS: MUPIROCIN OINT 2% 22 GM TUBE SCH ×2 (08:41→20:32)
[2017-10-12] MEDS: HYDROGEL DRESSING 90 GM TUBE TP SCH (08:41)
[2017-10-12] MEDS: ONDANSETRON HCL/PF 4 MG/2 ML VIAL IVP PRN (08:59)
--- NOTE | 2017-10-12 11:15 | NUR ---
MANAGER TALENT ACQUISITION NOTE 0720:Received patient obtunded. With trache to vent, tolerated settings at this time. No respiratory distress noted. HOB elevated. GT intact, will monitor if tolerated. With RIJ TLC intact, IVF infusing as ordered, Levo @ 16mcg, will titrate as ordered. On isolation prec for wound Acineto/VRE. 0800: S/E by Dr. Tate, no new order at this time. 0845: With episode of vomiting x1, held GT feeding and given Zofran, kept HOB elevated. Will continue to monitor. 1100: No significant changes noted at this time. VSS, still on Levo 16mcg. Kept clean, warm and dry.
[2017-10-12 12:01] LABS: ABG BASE EXCESS -26.7 mmol/L; ABG OXYGEN SATURATION 94.4 % (92.0-98.5); ABG PCO2 20.5 mmHg (35.0-45.0); ABG PH 6.916 (7.350-7.450); ABG PO2 107.9 mmHg (75.0-100.0); AaDO2 81.9 mmHg; COHb 0.3 % (0.5-1.5); MetHb 0.9 % (0.0-1.5); O2Hb 93.3 % (94.0-97.0); SITE, ABG Right Radial
[2017-10-12] MEDS ORDERED: SODIUM BICARBONATE SYR 50 MEQ/50 ML DISP.SYRIN IV ONE (12:30)
[2017-10-12] MEDS: SEVELAMER CARBONATE 0.8 GM POWD.PACK GT SCH ×2 (12:48→18:08)
[2017-10-12] MEDS: Sodium Bicarbonate 150 MEQ in IV D5W 1,000 ML IV PRN (13:29)
[2017-10-12] MEDS: LACTOBACILLUS RHAMNOSUS GG 1 EACH CAP.SPRINK GT SCH (18:08)
[2017-10-12] MEDS: NOREPINEPHRINE 16 MG in IV D5W 500 ML IV PRN (18:17)
[2017-10-12] MEDS: COLISTIMETHATE SODIUM 75 MG in IV NS 0.9% 50 ML IV SCH (20:01)
[2017-10-12] MEDS ORDERED: LINEZOLID RTU BAG 300 ML IV ONE (21:21)
[2017-10-12] MEDS: LINEZOLID RTU BAG 600 MG in PREMIX 1 EA IV SCH (21:25)
--- NOTE | 2017-10-12 21:51 | NUR ---
pt received on vent via charted route and settings. ambu bag at bedside alarms set and audible. disconnect alarms checked. vent plugged into red outlet. tolerating vent settings at ths time. will continue to monitor Addendum: 10/12/17 at 2151 by SHAHIDA SMITH RT Amended: Links added.
[2017-10-13] VITALS (75 sets, daily range): BP systolic 33–115; BP diastolic 18–74
[2017-10-13] MEDS: Sodium Bicarbonate 150 MEQ in IV D5W 1,000 ML IV PRN ×3 (01:46→18:35)
[2017-10-13] MEDS: ONDANSETRON HCL/PF 4 MG/2 ML VIAL IVP PRN (05:16)
[2017-10-13] MEDS: HYDROCORTISONE SOD SUCCINATE 100 MG/2 ML VIAL IV SCH ×2 (05:16→12:29)
[2017-10-13 05:43] LABS: BASOPHILS # (AUTO) 0.1 /CMM (0.0-0.2); BASOPHILS % (AUTO) 0.9 % (0.0-2.0); EOSINOPHILS # (AUTO) 0.1 /CMM (0.0-0.7); EOSINOPHILS % (AUTO) 0.4 % (0.0-6.0); LYMPHOCYTES # (AUTO) 0.9 /CMM (0.8-4.8); LYMPHOCYTES % (AUTO) 5.2 % (20.0-44.0); MEAN CORPUSCULAR HEMOGLOBIN 30 PG (26.0-33.0); MEAN CORPUSCULAR HGB CONC 32 g/dl (31.0-36.0); MEAN CORPUSCULAR VOLUME 94 fL (82-100); MONOCYTES # (AUTO) 0.2 /CMM (0.1-1.30); MONOCYTES % (AUTO) 1.1 % (2.0-12.0); NEUTROPHILS # (AUTO) 15.5 /CMM (1.8-8.9); NEUTROPHILS % (AUTO) 92.4 % (43.0-81.0); PLATELET COUNT (AUTO) 61 /CMM (150-450); RDW COEFFICIENT OF VARIATION 18.7 (11.5-15.0); WHITE BLOOD COUNT (AUTO) 16.8 K/uL (4.3-11.0)
[2017-10-13] MEDS ORDERED: NOREPINEPHRINE 4 MG/4 ML AMPUL IV ONE ×2 (05:49)
[2017-10-13 05:59] LABS: CALCIUM, SERUM 7.7 mg/dL (8.5-10.1); CHLORIDE 107 mmol/L (98-107); CREATININE 2.4 mg/dL (0.6-1.3); GLUCOSE 195 mg/dL (74-106); MAGNESIUM 1.9 mg/dL (1.8-2.4); POTASSIUM 4.2 mmol/L (3.5-5.1); SODIUM SERUM 143 mmol/L (136-145)
[2017-10-13 06:09] LABS: CARBON DIOXIDE 5 mmol/L (21-32); PHOSPHORUS 9.4 mg/dL (2.5-4.9); UREA NITROGEN, BLOOD 102 mg/dL (7-18)
[2017-10-13 06:10] LABS: HEMATOCRIT 18 % (33-45); HEMOGLOBIN 5.7 g/dL (11.5-14.8)
[2017-10-13] MEDS: NOREPINEPHRINE 16 MG in IV D5W 500 ML IV PRN ×2 (06:11→12:54)
[2017-10-13 06:16] LABS: BAND % (MANUAL) 11 % (0.0-5.0); LYMPHOCYTES % (MANUAL) 7 % (16-48); MONOCYTES % (MANUAL) 2 % (0-11.0); MYELOCYTES % 1 % (0-0); NEUTROPHILS % (MANUAL) 79 (42-76)
--- NOTE | 2017-10-13 07:45 | NUR ---
ICU/RN PT IS CHRONIC TRACH ON THE VENT AC MODE.SAT O2-100%.ON LEVOPHED.COMATOSE . ANURIC . ESRD WAITING FOR NEW HD CATH PLACEMENT.GENERALIZED WEEPING EDEMA NOTED.IV INFUSING ORDERED.AFEBRILE.MULTIPLY WOUNDS NOTED ALL OVER THE BODY COVERED WITH DRESSING.PT HAS G-TUBE CLAMPED.NPO,DUE TO VOMITING.SUCTION PROVIDED.BLOODY SECRETION NOTED.LABS REVIEW. 2 UNITS PRBC ORDERED.REPOSITION FOR COMFORT.
--- NOTE | 2017-10-13 07:53 | NUR ---
RT PATIENT REC'D TRACHED ON [facility] VENT WITH SETTINGS SET BY . VENT ALARMS CHECKED + AUDIBLE. CUFF PRESSURE CHECKED UPHOLSTERER HELPER. SX'D WITH JOSE A ANDUJAR. B/S DIM COARSE. AMBU BAG AT HOB Addendum: 10/13/17 at 0753 by CAMERON JOHNSTON RT Amended: Links added.
[2017-10-13] MEDS: SEVELAMER CARBONATE 0.8 GM POWD.PACK GT SCH ×3 (08:00→16:56)
[2017-10-13] MEDS: LACTOBACILLUS RHAMNOSUS GG 1 EACH CAP.SPRINK GT SCH ×2 (08:39→16:55)
[2017-10-13] MEDS: MEROPENEM 500 MG in IV NS 0.9% 50 ML IV SCH (08:39)
[2017-10-13] MEDS: PANTOPRAZOLE 40 MG VIAL IV SCH (08:39)
[2017-10-13] MEDS: Z GUARD REMEDY 2 OZ OINT TP PRN (08:40)
[2017-10-13] MEDS: VIT B CMPLX 3/FA/VIT C/BIOTIN 1 TAB TABLET PO SCH (08:40)
[2017-10-13] MEDS: HYDROGEL DRESSING 90 GM TUBE TP SCH (08:41)
[2017-10-13] MEDS: MUPIROCIN OINT 2% 22 GM TUBE SCH (08:42)
[2017-10-13 09:03] LABS: ABG BASE EXCESS -31.7 mmol/L; ABG OXYGEN SATURATION 95.8 % (92.0-98.5); ABG PCO2 19.9 mmHg (35.0-45.0); ABG PH 6.666 (7.350-7.450); ABG PO2 131.6 mmHg (75.0-100.0); AaDO2 58.9 mmHg; COHb 0.2 % (0.5-1.5); MetHb 1.7 % (0.0-1.5); SITE, ABG Right Radial
[2017-10-13] MEDS ORDERED: SODIUM BICARBONATE SYR 50 MEQ/50 ML DISP.SYRIN IV ONE (09:30)
--- NOTE | 2017-10-13 09:35 | NUR ---
ICU/RN ABG DONE ,DR LOTT NOTIFIED.NEW ORDERS RECEIVED.2 AMPS OF BICARB IV GIVEN ORDERED.FAMILY AT BEDSIDE.CONTINUE MONITORING
[2017-10-13] MEDS: LINEZOLID RTU BAG 600 MG in PREMIX 1 EA IV SCH (10:41)
--- NOTE | 2017-10-13 13:16 | NUR ---
PATIENT PLACED ON 60% FIO2 FOR DESATURATION Addendum: 10/13/17 at 1317 by CAMERON JOHNSTON RT Amended: Links added.
[2017-10-13] MEDS ORDERED: HEPARIN SODIUM, PORCINE 1000 UNIT/1 ML VIAL IV ONE (14:30)
--- NOTE | 2017-10-13 16:00 | NUR ---
ICU/RN DR NOYOLA PLACED NEW HD CATH.PT IS BLEEDING FROM THE SIDE .PRESSURE DRESSING APPLIED. 2 UNITS PRBC GIVEN ORDERED.PT TOLERATED WELL,NO S/S OF REACTION NOTED.
[2017-10-13] MEDS ORDERED: PHENYLEPHRINE 80 MG in IV NS 0.9% 250 ML IV PRN (17:00)
--- NOTE | 2017-10-13 17:01 | NUR ---
ICU/RN PM CARE PROVIDED.WOUND DRESSING DONE ORDERED.PT IS BLEEDING FROM THE RECTUM, SACRAL WOUNDS. ORAL BLEEDING NOTED .BP DECREASED.MD NOTIFIED.NEW ORDERS RECEIVED.G-TUBE SIDE BLEEDING NOTED.GENERALIZED WEEPING EDEMA NOTED.
[2017-10-13] MEDS ORDERED: VASOPRESSIN INJ 50 UNIT in IV D5W 497.5 ML IV PRN (18:00)
--- NOTE | 2017-10-13 18:00 | NUR ---
ICU/RN PT IS ON 3 PRESSORS MAXIMUM DOSE,ON BICARB DRIP.PT HAS ORAL AND NOSE BLEEDING.FAMILY AT BEDSIDE.MAKE PATIENT DNR CODE STATUS.MD NOTIFIED.
--- NOTE | 2017-10-13 19:05 | NUR ---
RN NOTE PT MADE DNR STATUS BY FAMILY. PT NOW ASYSTOLIC, NO SPONTANEOUS RESPIRATIONS, NO PALPABLE PULSES. PUPILS FIXED AND DILATED. PRONOUNCED .
--- NOTE | 2017-10-13 19:15 | NUR ---
POWDERED SUGAR SUPERVISOR NOTES Received report ,patient @ 1905 .Family still at bedside.LAMIN Isabel instructed family on what to do next as far as post mortem care,psychological support to family rendered as well.
--- NOTE | 2017-10-13 19:59 | NUR ---
ICU/TAILOR WOMEN'S GARMENT ALTERATION HAS NO MORTUARY ARRANGEMENT .BODY WILL GO TO [facility].
--- NOTE | 2017-10-13 21:00 | NUR ---
MANAGER INPATIENT NOTES Post mortem care done.No belongings at the bedside. 2114 Brought body down to the morgue.
== END 2017-10-13 19:05 | disposition expired | DRG 870 ==
LOC: ER 07:15 → TELE1 11:51 → TELE-TD 09-21 08:22 → TELE1 09-22 17:00 → ICU 10-04 14:05 → TELE-TD 10-06 17:42 → TELE1 10-08 10:05 → ICU 10-10 13:31
PROVIDERS: ADMIT Internal Medicine; ATTEND Internal Medicine
PROC: 5A1955Z Respiratory Ventilation, Greater than 96 Consecutive Hours (ICD-10-PCS; principal; 2017-09-18)
PROC: 30233N1 Transfusion of Nonautologous Red Blood Cells into Peripheral Vein, Percutaneous Approach (ICD-10-PCS; 2017-09-19)
PROC: 5A1D70Z Performance of Urinary Filtration, Intermittent, Less than 6 Hours Per Day (ICD-10-PCS; 2017-09-20)
PROC: 06HM33Z Insertion of Infusion Device into Right Femoral Vein, Percutaneous Approach (ICD-10-PCS; 2017-09-21)
PROC: B54BZZA Ultrasonography of Right Lower Extremity Veins, Guidance (ICD-10-PCS; 2017-09-21)
PROC: 5A1D70Z Performance of Urinary Filtration, Intermittent, Less than 6 Hours Per Day (ICD-10-PCS; 2017-09-21)
PROC: 5A1D70Z Performance of Urinary Filtration, Intermittent, Less than 6 Hours Per Day (ICD-10-PCS; 2017-09-23)
PROC: 5A1D70Z Performance of Urinary Filtration, Intermittent, Less than 6 Hours Per Day (ICD-10-PCS; 2017-09-25)
PROC: 06HM33Z Insertion of Infusion Device into Right Femoral Vein, Percutaneous Approach (ICD-10-PCS; 2017-09-29)
PROC: B54BZZA Ultrasonography of Right Lower Extremity Veins, Guidance (ICD-10-PCS; 2017-09-29)
PROC: 5A1D70Z Performance of Urinary Filtration, Intermittent, Less than 6 Hours Per Day (ICD-10-PCS; 2017-09-29)
PROC: 5A1D70Z Performance of Urinary Filtration, Intermittent, Less than 6 Hours Per Day (ICD-10-PCS; 2017-09-30)
PROC: 5A1D70Z Performance of Urinary Filtration, Intermittent, Less than 6 Hours Per Day (ICD-10-PCS; 2017-10-01)
PROC: 0W993ZZ Drainage of Right Pleural Cavity, Percutaneous Approach (ICD-10-PCS; 2017-10-03)
PROC: 5A1D70Z Performance of Urinary Filtration, Intermittent, Less than 6 Hours Per Day (ICD-10-PCS; 2017-10-03)
PROC: 05HM33Z Insertion of Infusion Device into Right Internal Jugular Vein, Percutaneous Approach (ICD-10-PCS; 2017-10-04)
PROC: B543ZZA Ultrasonography of Right Jugular Veins, Guidance (ICD-10-PCS; 2017-10-04)
PROC: 5A1D70Z Performance of Urinary Filtration, Intermittent, Less than 6 Hours Per Day (ICD-10-PCS; 2017-10-05)
PROC: 05HM33Z Insertion of Infusion Device into Right Internal Jugular Vein, Percutaneous Approach (ICD-10-PCS; 2017-10-13)
PROC: B543ZZA Ultrasonography of Right Jugular Veins, Guidance (ICD-10-PCS; 2017-10-13)
DX: A41.51 Sepsis due to Escherichia coli [E. coli] (principal); N17.0 Acute kidney failure with tubular necrosis; E43 Unspecified severe protein-calorie malnutrition; G92 Toxic encephalopathy; R65.21 Severe sepsis with septic shock; J90 Pleural effusion, not elsewhere classified; Z99.11 Dependence on respirator [ventilator] status; R57.1 Hypovolemic shock; K31.6 Fistula of stomach and duodenum; I13.2 Hypertensive heart and chronic kidney disease with heart failure and with stage 5 chronic kidney disease, or end stage renal disease; J96.11 Chronic respiratory failure with hypoxia; N18.6 End stage renal disease; R53.2 Functional quadriplegia; I50.33 Acute on chronic diastolic (congestive) heart failure; L89.154 Pressure ulcer of sacral region, stage 4; B37.0 Candidal stomatitis; D68.59 Other primary thrombophilia; E87.2 Acidosis; N39.0 Urinary tract infection, site not specified; E27.40 Unspecified adrenocortical insufficiency; D62 Acute posthemorrhagic anemia; E87.0 Hyperosmolality and hypernatremia; K92.2 Gastrointestinal hemorrhage, unspecified; E87.5 Hyperkalemia; D50.0 Iron deficiency anemia secondary to blood loss (chronic); E11.22 Type 2 diabetes mellitus with diabetic chronic kidney disease; I48.0 Paroxysmal atrial fibrillation; K21.9 Gastro-esophageal reflux disease without esophagitis; Z96.641 Presence of right artificial hip joint; D69.6 Thrombocytopenia, unspecified; E83.42 Hypomagnesemia; E83.51 Hypocalcemia; F03.90 Unspecified dementia, unspecified severity, without behavioral disturbance, psychotic disturbance, mood disturbance, and anxiety; L98.8 Other specified disorders of the skin and subcutaneous tissue; F09 Unspecified mental disorder due to known physiological condition; Z22.322 Carrier or suspected carrier of Methicillin resistant Staphylococcus aureus; R65.20 Severe sepsis without septic shock; Z93.0 Tracheostomy status; E83.9 Disorder of mineral metabolism, unspecified; B96.89 Other specified bacterial agents as the cause of diseases classified elsewhere; Z93.1 Gastrostomy status; Z99.2 Dependence on renal dialysis; Z16.12 Extended spectrum beta lactamase (ESBL) resistance; Z16.21 Resistance to vancomycin
CPT/HCPCS: 31720; 36415; 36600; 71045-TC; 74018; 76770-TC; 76942-TC; 80048-TC; 80053-TC; 80061-TC; 80074; 80076-TC; 80202-TC; 81000-TC; 82150-TC; 82247-TC; 82248-TC; 82272-TC; 82533; 82550-TC; 82553-TC; 82570-TC; 82746; 82803-TC; 82962-TC; 83540-TC; 83605-TC; 83690-TC; 83735-TC; 83880; 83970; 84100-TC; 84134-TC; 84155; 84155-TC; 84165; 84300-TC; 84443-TC; 84484-TC; 85025-TC; 85045-TC; 85610-TC; 85652-TC; 85730-TC; 86704; 86706; 86708; 86709; 86850-TC; 86921-TC; 87040-TC; 87070-TC; 87075-TC; 87081-TC; 87086-TC; 87186-TC; 87340; 89051-TC; 90935-TC; 93307-TC; 94002-TC; 94003-TC; 94640-TC; 94760-TC; 94762-TC; 99082-TC; A4216; A4217; A4606; A4623; A6248; A6253; A6402; A6403; C1750; C1751; C9113; J0282; J0610; J0692; J0696; J0770; J1644; J1720; J1815; J1940; J2020; J2185; J2370; J2405; J2550; J3370; J3475; J3480; J3490; J7030; J7040; J7042; J7050; J7060; J7070; P9016-BL; P9047; Q9963; Z7610